=== PATIENT | female | born 1990 | race Caucasian/White ===

== ENCOUNTER → 2016-12-02 | Outpatient (CLI) | payer MEDICAID ==
[2016-12-02 15:23] LABS: CHLORIDE,CL 108 mmol/L (98-110); SODIUM,NA 141 mmol/L (136-146)
== END ==
LOC: MW.CHOBGYN 14:36
PROVIDERS: ATTEND Nurse Practitioner Women's Health
DX: R61 Generalized hyperhidrosis (principal); M79.1 Myalgia
CPT/HCPCS: 36415; 80053; 82670; 84443; 84703; 85025; 85652; 86038; 86140; 86430; 86618

== ENCOUNTER 2017-10-20 19:36 | Inpatient (IN) | payer MEDICAID ==
[2017-10-20] MEDS ORDERED: Sodium Chloride 0.9% 2.5 ML Syringe FLUSH PRN (19:48)
[2017-10-20] MEDS ORDERED: Sodium Chloride 0.9% 10 ML Syringe FLUSH PRN (19:48)
[2017-10-20] MEDS ORDERED: Sodium Chloride 0.9% 500 ML IV SCH (20:00)
[2017-10-20] MEDS ORDERED: Lactated Ringers 1,000 ML IV ONE (20:33)
[2017-10-20] MEDS ORDERED: cefTRIAXone 2 GM in Premix Bag 1 BAG IV ONE (20:50)
[2017-10-20] MEDS ORDERED: Sodium Chloride 0.9% 1,000 ML IV ONE (20:51)
[2017-10-20] MEDS ORDERED: Levofloxacin/Dextrose 5%-Water 750 MG in Premix Bag 1 BAG IV ONE (20:52)
--- NOTE | 2017-10-20 20:57 | EDM.PDOC ---
ED HPI GENERAL MEDICAL PROBLEM - General Chief Complaint: General Stated Complaint: FLU SYMPTOMS Time Seen by Provider: 10/20/17 19:42 Source of Information: Reports: Patient History Limitations: Reports: No Limitations - History of Present Illness INITIAL COMMENTS - FREE TEXT/NARRATIVE: HISTORY AND PHYSICAL: [] 27-year-old female presenting with complaints of flulike symptoms she's been sick for the last week History of Present Illness: []Alert oriented female who is quite miserable. Complaining of vomiting today. Fever. Review of Systems: As per history of present illness and below otherwise all systems reviewed and negative. Past medical history: As per history of present illness and as reviewed below otherwise noncontributory. Surgical history: As per history of present illness and as reviewed below otherwise noncontributory. Social history: No reported history of drug or alcohol abuse. Family history: As per history of present illness and as reviewed below otherwise noncontributory. Physical exam: Alert and oriented female answering questions appropriately speaking in full sentences without any shortness of breath. Cooperative with examination. is at bedside. HEENT: Atraumatic, normocehpalic, pupils reactive, negative for conjunctival pallor or scleral icterus, mucous membranes moist, throat clear, neck supple, nontender, trachea midline. Lungs: Coarse on auscultation, breath sounds equal bilaterally, chest non tender. Heart: S1S2, regular, negative for clicks, rubs, or JVD. Abdomen: Soft, nondistended, nontender. Negative for masses or hepatossplenmegaly. Positive for right costovertebral tenderness. Pelvis: Stable nontender. Genitourinary: Deferred. Rectal: Deferred Extremities: Atraumatic, negative for cords or calf pain. Neurovascular unremarkable. Neuro: Awake, alert, oriented. Cranial nerves II through XII unremarkable. Cerebellum unremarkable. Motor and sensory unremarkable throughout. Exam nonfocal. Discussed results of the testing that was completed and suspected sepsis along with a pneumonia and UTI. Both and patient verbalized understanding of the discussed results. Discussed with Dr. Braun and he is in agreement with admission. Diagnostics: [Cc CMP amylase lipase lactic acid chest x-ray] Therapeutics: []1 L normal saline Vancomycin Rocephin : Levaquin Impression: [] #1 pneumonia #2 sepsis #3 UTI Plan: [Admit as inpatient ICU] Definitive disposition and diagnosis as appropriate pending reevaluation and review of above. Onset: Today, Sudden Duration: Day(s): (2) Location: Reports: Generalized Quality: Reports: Ache Severity: Moderate Improves with: Reports: None Worsens with: Reports: None General Pain Score (Numeric/FACES): 10 - Related Data Allergies Allergy/AdvReac Type Severity Reaction Status Date / Time No Known Allergies Allergy Verified 10/20/17 19:55 Home Meds: Home Meds Gabapentin [Neurontin] 800 mg PO TID 10/20/17 [History] FLUoxetine [PROzac] 10 mg PO DAILY 10/21/17 [History] Past Medical History - Past Health History Medical/Surgical History: Denies Medical/Surgical History HEENT History: Reports: None Cardiovascular History: Reports: None Respiratory History: Reports: None Gastrointestinal History: Reports: None Genitourinary History: Reports: None [employer] History: Reports: Musculoskeletal History: Reports: Fibromyalgia Neurological History: Reports: Headaches, Chronic Psychiatric History: Reports: Anxiety, Depression, OCD Endocrine/Metabolic History: Reports: Hyperthyroidism Hematologic History: Reports: None Immunologic History: Reports: None Oncologic (Cancer) History: Reports: None Dermatologic History: Reports: None - Infectious Disease History Infectious Disease History: Reports: Chicken Pox - Past Surgical History Head Surgeries/Procedures: Reports: None HEENT Surgical History: Reports: None GI Surgical History: Reports: None Female Surgical History: Reports: Section Social & Family History - Family History Family Medical History: Noncontributory - Tobacco Use Smoking Status *Q: Current Every Day Smoker Years of Tobacco use: 10 Packs/Tins Daily: 1 Used Tobacco, but Quit: No Second Hand Smoke Exposure: Yes - Alcohol Use Days Per Week of Alcohol Use: 3 Number of Drinks Per Day: 3 Total Drinks Per Week: 9 - Recreational Drug Use Recreational Drug Use: No Drug Use in Last 12 Months: No ED ROS GENERAL - Review of Systems Review Of Systems: ROS reveals no pertinent complaints other than HPI. ED EXAM, GENERAL - Physical Exam Exam: See Below (see dictation) Course - Vital Signs Last Recorded V/S: Last Vital Signs Temp 36.8 C 10/23/17 08:28 Pulse 124 H 10/23/17 08:28 Resp 19 10/23/17 08:28 BP 124/84 10/23/17 08:28 Pulse Ox 89 L 10/23/17 08:28 - Orders/Labs/Meds Orders: Medication Orders Acetaminophen (Tylenol) 650 mg PO Q4H PRN PRN Reason: Pain (Mild 1-3)/fever Hydrocodone Bitart/Acetaminophen ([employer] 325-5 Mg) 1 tab PO Q4H PRN PRN Reason: Pain (moderate 4-6) Last Admin: 10/23/17 09:42 Dose: 1 tab Admin: 10/22/17 08:48 Dose: 1 tab Admin: 10/22/17 03:40 Dose: 1 tab Admin: 10/21/17 21:27 Dose: 1 tab Admin: 10/21/17 17:05 Dose: 1 tab Admin: 10/21/17 12:08 Dose: 1 tab Admin: 10/21/17 06:24 Dose: 1 tab Admin: 10/20/17 23:38 Dose: 1 tab Albuterol/Ipratropium (Duoneb 3.0-0.5 Mg/3 Ml) 3 ml NEB Q4HRRT PRN PRN Reason: Wheezing Last Admin: 10/21/17 11:36 Dose: 3 ml Diphenhydramine HCl (Benadryl) 25 mg IVPUSH Q8H PRN PRN Reason: Itching Docusate Sodium (Colace) 200 mg PO BID PRN PRN Reason: Constipation Enoxaparin Sodium (Lovenox) 40 mg SUBCUT Q24H [facility] Last Admin: 10/22/17 21:37 Dose: 40 mg Admin: 10/21/17 21:26 Dose: 40 mg Admin: 10/20/17 23:57 Dose: 40 mg Gabapentin (Neurontin) 800 mg PO TID [facility] Last Admin: 10/23/17 05:50 Dose: 800 mg Admin: 10/22/17 21:38 Dose: 800 mg Admin: 10/22/17 15:18 Dose: 800 mg Admin: 10/22/17 09:40 Dose: 800 mg Guaifenesin/Dextromethorphan (Robitussin Dm) 10 ml PO Q4H PRN PRN Reason: Cough Last Admin: 10/23/17 09:56 Dose: 10 ml Sodium Chloride (Normal Saline) 500 mls @ 999 mls/hr IV STAT [facility] Last Admin: 10/20/17 20:12 Dose: 999 mls/hr Levofloxacin/Dextrose 750 mg/ (Premix) 150 mls @ 100 mls/hr IV Q24H [facility] Last Admin: 10/23/17 02:27 Dose: 100 mls/hr Infusion: 10/22/17 02:51 Dose: 100 mls/hr Admin: 10/22/17 01:21 Dose: 100 mls/hr Infusion: 10/21/17 02:57 Dose: 100 mls/hr Admin: 10/21/17 01:27 Dose: 100 mls/hr Lorazepam (Ativan) 1 mg PO Q4H PRN PRN Reason: Anxiety Metronidazole (Metronidazole) 500 mg PO Q12HR [facility] Last Admin: 10/23/17 09:41 Dose: 500 mg Admin: 10/22/17 21:38 Dose: 500 mg Admin: 10/22/17 11:34 Dose: 500 mg Morphine Sulfate (Morphine) 2 mg IVPUSH Q2H PRN PRN Reason: Pain (severe 7-10) Nicotine (Habitrol) 7 mg TRDERM DAILY [facility] Last Admin: 10/23/17 09:40 Dose: 7 mg Admin: 10/22/17 08:48 Dose: 7 mg Admin: 10/21/17 08:22 Dose: 7 mg Admin: 10/20/17 23:42 Dose: 7 mg Ondansetron HCl (Zofran Odt) 4 mg PO Q4H PRN PRN Reason: nausea, able to take PO Ondansetron HCl (Zofran) 4 mg IVPUSH Q4H PRN PRN Reason: Nausea Sodium Chloride (Saline Flush) 10 ml FLUSH ASDIRECTED PRN PRN Reason: Keep Vein Open Sodium Chloride (Saline Flush) 2.5 ml FLUSH ASDIRECTED PRN PRN Reason: Keep Vein Open Labs: Laboratory Tests 10/20/17 10/20/17 10/20/17 Range/Units 19:58 19:58 19:58 WBC 25.62 H (4.0-11.0) K/uL RBC 4.45 (4.30-5.90) M/uL Hgb 13.8 (12.0-16.0) g/dL Hct 39.2 (36.0-46.0) % MCV 88.1 (80.0-98.0) fL MCH 31.0 (27.0-32.0) pg MCHC 35.2 (31.0-37.0) g/dL RDW Std Deviation 40.0 (28.0-62.0) fl RDW Coeff of Alex 13 (11.0-15.0) % Plt Count 197 (150-400) K/uL MPV 9.80 (7.40-12.00) fL Add Manual Diff YES Neutrophils % (Manual) 64 (48.0-80.0) % Band Neutrophils % 29 % Lymphocytes % (Manual) 5 L (16.0-40.0) % Monocytes % (Manual) 2 (0.0-15.0) % Nucleated RBC % 0.0 /100WBC Absolute Seg Neuts 16.4 H (1.4-5.7) Band Neutrophils # 7.4 Lymphocytes # (Manual) 1.3 (0.6-2.4) Monocytes # (Manual) 0.5 (0.0-0.8) Nucleated RBCs # 0 K/uL Lactate 1.6 (0.20-2.00) mmol/L Sodium 131 L (136-145) mmol/L Potassium 4.1 (3.5-5.1) mmol/L Chloride 97 L (98-107) mmol/L Carbon Dioxide 24.7 (21.0-32.0) mmol/L BUN 21 H (7.0-18.0) mg/dL Creatinine 1.2 H (0.6-1.0) mg/dL Est Cr Clr Drug Dosing 61.92 mL/min Estimated GFR (MDRD) 53.1 ml/min Glucose 94 (74-106) mg/dL Calcium 8.7 (8.5-10.1) mg/dL Total Bilirubin 0.4 (0.2-1.0) mg/dL AST 20 (15-37) IU/L ALT 20 (14-63) IU/L Alkaline Phosphatase 79 (46-116) U/L Total Protein 6.8 (6.4-8.2) g/dL Albumin 3.0 L (3.4-5.0) g/dL Globulin 3.8 H (2.0-3.5) g/dL Albumin/Globulin Ratio 0.8 L (1.3-2.8) Urine Color Urine Appearance Urine pH (5.0-8.0) Ur Specific [place] (1.001-1.035) Urine Protein (NEGATIVE) mg/dL Urine Glucose (UA) (NEGATIVE) mg/dL Urine Ketones (NEGATIVE) mg/dL Urine Occult Blood (NEGATIVE) Urine Nitrite (NEGATIVE) Urine Bilirubin (NEGATIVE) Urine Urobilinogen (<2.0) EU/dL Ur Leukocyte Esterase (NEGATIVE) Urine HCG, Qual (NEGATIVE) Urine Opiates Screen (NEGATIVE) Ur Oxycodone Screen (NEGATIVE) Urine Methadone Screen (NEGATIVE) Ur Barbiturates Screen (NEGATIVE) Ur Phencyclidine Scrn (NEGATIVE) Ur Amphetamine Screen (NEGATIVE) U Methamphetamines Scrn (NEGATIVE) U Benzodiazepines Scrn (NEGATIVE) U Cocaine Metab Screen (NEGATIVE) U Marijuana (THC) Screen (NEGATIVE) 10/20/17 10/20/17 10/20/17 Range/Units 20:15 20:15 20:15 WBC (4.0-11.0) K/uL RBC (4.30-5.90) M/uL Hgb (12.0-16.0) g/dL Hct (36.0-46.0) % MCV (80.0-98.0) fL MCH (27.0-32.0) pg MCHC (31.0-37.0) g/dL RDW Std Deviation (28.0-62.0) fl RDW Coeff of Alex (11.0-15.0) % Plt Count (150-400) K/uL MPV (7.40-12.00) fL Add Manual Diff Neutrophils % (Manual) (48.0-80.0) % Band Neutrophils % % Lymphocytes % (Manual) (16.0-40.0) % Monocytes % (Manual) (0.0-15.0) % Nucleated RBC % /100WBC Absolute Seg Neuts (1.4-5.7) Band Neutrophils # Lymphocytes # (Manual) (0.6-2.4) Monocytes # (Manual) (0.0-0.8) Nucleated RBCs # K/uL Lactate (0.20-2.00) mmol/L Sodium (136-145) mmol/L Potassium (3.5-5.1) mmol/L Chloride (98-107) mmol/L Carbon Dioxide (21.0-32.0) mmol/L BUN (7.0-18.0) mg/dL Creatinine (0.6-1.0) mg/dL Est Cr Clr Drug Dosing mL/min Estimated GFR (MDRD) ml/min Glucose (74-106) mg/dL Calcium (8.5-10.1) mg/dL Total Bilirubin (0.2-1.0) mg/dL AST (15-37) IU/L ALT (14-63) IU/L Alkaline Phosphatase (46-116) U/L Total Protein (6.4-8.2) g/dL Albumin (3.4-5.0) g/dL Globulin (2.0-3.5) g/dL Albumin/Globulin Ratio (1.3-2.8) Urine Color YELLOW Urine Appearance CLEAR Urine pH 6.0 (5.0-8.0) Ur Specific [place] 1.015 (1.001-1.035) Urine Protein 100 (NEGATIVE) mg/dL Urine Glucose (UA) NEGATIVE (NEGATIVE) mg/dL Urine Ketones NEGATIVE (NEGATIVE) mg/dL Urine Occult Blood MODERATE (NEGATIVE) Urine Nitrite NEGATIVE (NEGATIVE) Urine Bilirubin NEGATIVE (NEGATIVE) Urine Urobilinogen 4.0 H (<2.0) EU/dL Ur Leukocyte Esterase NEGATIVE (NEGATIVE) Urine HCG, Qual NEGATIVE (NEGATIVE) Urine Opiates Screen NEGATIVE (NEGATIVE) Ur Oxycodone Screen NEGATIVE (NEGATIVE) Urine Methadone Screen NEGATIVE (NEGATIVE) Ur Barbiturates Screen NEGATIVE (NEGATIVE) Ur Phencyclidine Scrn NEGATIVE (NEGATIVE) Ur Amphetamine Screen POSITIVE (NEGATIVE) U Methamphetamines Scrn POSITIVE (NEGATIVE) U Benzodiazepines Scrn NEGATIVE (NEGATIVE) U Cocaine Metab Screen NEGATIVE (NEGATIVE) U Marijuana (THC) Screen NEGATIVE (NEGATIVE) Meds: Medications Generic Name Dose Route Start Last Admin Trade Name Freq PRN Reason Stop Dose Admin Acetaminophen 650 mg 10/20/17 22:11 Tylenol PO Q4H PRN Pain (Mild 1-3)/fever Hydrocodone Bitart/Acetaminophen 1 tab 10/20/17 22:11 10/23/17 09:42 [employer] 325-5 Mg PO 1 tab Q4H PRN Administration Pain (moderate 4-6) Albuterol/Ipratropium 3 ml 10/21/17 11:24 10/21/17 11:36 Duoneb 3.0-0.5 Mg/3 Ml NEB 3 ml Q4HRRT PRN Administration Wheezing Diphenhydramine HCl 25 mg 10/22/17 06:49 Benadryl IVPUSH Q8H PRN Itching Docusate Sodium 200 mg 10/21/17 18:17 Colace PO BID PRN Constipation Enoxaparin Sodium 40 mg 10/20/17 22:00 10/22/17 21:37 Lovenox SUBCUT 40 mg Q24H [facility] Administration Gabapentin 800 mg 10/22/17 09:30 10/23/17 05:50 Neurontin PO 800 mg TID [facility] Administration Guaifenesin/Dextromethorphan 10 ml 10/23/17 09:20 10/23/17 09:56 Robitussin Dm PO 10 ml Q4H PRN Administration Cough Sodium Chloride 500 mls @ 999 mls/hr 10/20/17 20:00 10/20/17 20:12 Normal Saline IV 999 mls/hr STAT [facility] Administration Levofloxacin/Dextrose 750 mg/ 150 mls @ 100 mls/hr 10/21/17 02:00 10/23/17 02 :27 Premix IV 100 mls/hr Q24H [facility] Administration Lorazepam 1 mg 10/22/17 09:30 Ativan PO Q4H PRN Anxiety Metronidazole 500 mg 10/22/17 11:15 10/23/17 09:41 Metronidazole PO 500 mg Q12HR [facility] Administration Morphine Sulfate 2 mg 10/22/17 15:17 Morphine IVPUSH Q2H PRN Pain (severe 7-10) Nicotine 7 mg 10/20/17 23:00 10/23/17 09:40 Habitrol TRDERM 7 mg DAILY [facility] Administration Ondansetron HCl 4 mg 10/20/17 22:11 Zofran Odt PO Q4H PRN nausea, able to take PO Ondansetron HCl 4 mg 10/20/17 22:11 Zofran IVPUSH Q4H PRN Nausea Sodium Chloride 10 ml 10/20/17 19:48 Saline Flush FLUSH ASDIRECTED PRN Keep Vein Open Sodium Chloride 2.5 ml 10/20/17 19:48 Saline Flush FLUSH ASDIRECTED PRN Keep Vein Open Discontinued Medications Generic Name Dose Route Start Last Admin Trade Name Freq PRN Reason Stop Dose Admin Lactated Ringer's 1,000 mls @ 999 mls/hr 10/20/17 20:33 10/20/17 21:10 Ringers, Lactated IV 10/20/17 21:33 999 mls/hr .BOLUS ONE Administration Ceftriaxone Sodium/Dextrose 2 50 mls @ 100 mls/hr 10/20/17 20:50 10/20/17 21: 14 gm/ Premix IV 10/20/17 21:19 100 mls/hr ONETIME ONE Administration Sodium Chloride 1,000 mls @ 999 mls/hr 10/20/17 20:51 10/20/17 22:15 Normal Saline IV 10/20/17 21:51 999 mls/hr STAT ONE Administration Vancomycin HCl 1 gm/ Sodium 250 mls @ 250 mls/hr 10/20/17 20:50 10/20/17 21: 16 Chloride IV 10/20/17 21:49 250 mls/hr ONETIME ONE Administration Levofloxacin/Dextrose 750 mg/ 150 mls @ 100 mls/hr 10/20/17 20:52 10/20/17 23 :56 Premix IV 10/20/17 22:21 Not Given ONETIME ONE Lactated Ringer's 1,000 mls @ 175 mls/hr 10/20/17 22:15 10/22/17 08:55 Ringers, Lactated IV 175 mls/hr ASDIRECTED [facility] Administration Piperacillin Sod/Tazobactam 100 mls @ 100 mls/hr 10/20/17 22:00 10/22/17 03: 00 Sod 4.5 gm/ Sodium Chloride IV 100 mls/hr Q6H [facility] Administration Albumin Human 250 mls @ 125 mls/hr 10/20/17 23:00 10/21/17 01:00 Buminate 5% IV 10/21/17 00:59 125 mls/hr Q2H [facility] Administration Vancomycin HCl 0.75 gm/ Sodium 250 mls @ 250 mls/hr 10/20/17 23:00 10/20/17 23:45 Chloride IV 10/20/17 23:59 250 mls/hr ONETIME ONE Administration Vancomycin HCl 0.75 gm/ Sodium 250 mls @ 166.667 mls/hr 10/21/17 04:00 04:46 Chloride IV 166.667 mls/hr Q8H [facility] Administration Sodium Chloride 1,000 mls @ 1,000 mls/hr 10/21/17 02:46 10/21/17 03:04 Normal Saline IV 10/21/17 03:45 1,000 mls/hr .Bolus ONE Administration Sodium Chloride 1,000 mls @ 1,000 mls/hr 10/21/17 04:47 10/21/17 05:13 Normal Saline IV 10/21/17 05:46 1,000 mls/hr .Bolus ONE Administration Magnesium Sulfate 2 gm/ Premix 50 mls @ 50 mls/hr 10/21/17 06:58 10/21/17 08: 22 IV 10/21/17 07:57 50 mls/hr ONETIME ONE Administration Vancomycin HCl 1 gm/ Sodium 250 mls @ 250 mls/hr 10/21/17 12:00 10/22/17 03: 58 Chloride IV 250 mls/hr Q8H [facility] Administration Magnesium Sulfate 4 gm/ Premix 100 mls @ 50 mls/hr 10/21/17 09:05 10/21/17 09 :14 IV 10/21/17 11:04 Not Given ONETIME ONE Lorazepam 1 mg 10/20/17 22:11 Ativan IVPUSH Q4H PRN Anxiety Morphine Sulfate 2 mg 10/20/17 22:11 Morphine IVPUSH 10/21/17 22:13 Q2H PRN Pain (severe 7-10) Morphine Sulfate 2 mg 10/21/17 07:12 Morphine IVPUSH Q2H PRN Pain (severe 7-10) Polyethylene Glycol 17 gm 10/21/17 17:57 10/21/17 18:00 Miralax PO 10/21/17 17:58 Not Given ONETIME ONE Polyethylene Glycol 17 gm 10/21/17 18:00 10/22/17 08:58 Miralax PO Not Given DAILY [facility] Potassium Chloride 40 meq 10/21/17 06:57 10/21/17 08:22 Potassium Chloride PO 10/21/17 06:58 40 meq ONETIME ONE Administration Potassium Chloride 40 meq 10/21/17 09:06 10/21/17 09:14 Potassium Chloride PO 10/21/17 09:07 Not Given ONETIME ONE Sodium Phosphate 250 mg 10/21/17 12:00 10/22/17 06:33 Neutra-Phos PO 10/22/17 06:01 250 mg QID [facility] Administration Vancomycin HCl 1 dose 10/20/17 22:15 Pharmacy To Dose - Vancomycin .XX ASDIRECTED [facility] Departure - Departure Time of Disposition: 22:15 Disposition: Admitted As Inpatient 64 Condition: Good Clinical Impression: Pneumonia Qualifiers: Pneumonia type: due to unspecified organism Laterality: right Lung location: lower lobe of lung Qualified Code(s): J18.1 - Lobar pneumonia, unspecified organism Sepsis Qualifiers: Sepsis type: sepsis due to unspecified organism Qualified Code(s): A41.9 - Sepsis, unspecified organism - Discharge Information
--- NOTE | 2017-10-20 21:16 | PCM.HP ---
H&P History of Present Illness - General Date of Service: 10/20/17 Admit Problem/Dx: Sepsis secondary to pna Source of Information: Patient History Limitations: Reports: No Limitations - History of Present Illness Initial Comments - Free Text/Narative: 27-year-old female presenting to emergency department with chief complaint of generalized body aches starting at 6 AM yesterday with past medical history of fibromyalgia, depression, anxiety. Patient states that around 6 AM yesterday she began to have some generalized body aches as well as nausea and vomiting. At midnight she felt worse with increased nausea and vomiting. She did get her daughter up for school the next day but noticed she had fever of 103. She has had associated dry cough, headache , chest pain, back, and stomach pain. Patient states that she is a current smoker but only smokes 1-2 cigarettes per day. She has a [id number] history. She has no allergies. She has a history of fibromyalgia and takes gabapentin for this. She also has a history of depression and anxiety but is not taking her prescribed Zyprexa or Prozac. Patient does admit to using methamphetamine recently. States that it was a "cureall" and thought that it would make her feel better. Patient does see Maryann Ceja for her primary care. Emergency department: Leukocytosis 25.62 today, hyponatremia 131, elevated creatinine 1.2, urinalysis unremarkable, chest x-ray positive for right lower lobe infiltrate, lactate normal, positive for amphetamine and methamphetamine. Blood cultures were obtained and patient was started on Rocephin 2 g, Levaquin, and Zosyn. She was also given 1 L LR. Patient was hypotensive 98/52 and tachycardic at 114. Patient admitted for sepsis secondary to suspected pneumonia. General Pain Score (Numeric/FACES): 10 - Related Data Allergies/Adverse Reactions: Allergies Allergy/AdvReac Type Severity Reaction Status Date / Time No Known Allergies Allergy Verified 10/20/17 19:55 Home Medications: Home Meds Aspirin 0 mg PO DAILY 10/20/17 [History] Gabapentin [Neurontin] 800 mg PO TID 10/20/17 [History] Past Medical History - Past Health History Medical/Surgical History: Denies Medical/Surgical History HEENT History: Reports: None Cardiovascular History: Reports: None Respiratory History: Reports: None Gastrointestinal History: Reports: None Genitourinary History: Reports: None 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: Musculoskeletal History: Reports: Fibromyalgia Neurological History: Reports: Headaches, Chronic Psychiatric History: Reports: Anxiety, Depression, OCD Endocrine/Metabolic History: Reports: Hyperthyroidism Hematologic History: Reports: None Immunologic History: Reports: None Oncologic (Cancer) History: Reports: None Dermatologic History: Reports: None - Infectious Disease History Infectious Disease History: Reports: Chicken Pox - Past Surgical History Head Surgeries/Procedures: Reports: None HEENT Surgical History: Reports: None GI Surgical History: Reports: None Female Surgical History: Reports: Section Social & Family History - Family History Family Medical History: Noncontributory - Tobacco Use Smoking Status *Q: Current Every Day Smoker Years of Tobacco use: 10 Packs/Tins Daily: 1 Used Tobacco, but Quit: No Second Hand Smoke Exposure: Yes - Alcohol Use Days Per Week of Alcohol Use: 3 Number of Drinks Per Day: 3 Total Drinks Per Week: 9 - Recreational Drug Use Recreational Drug Use: No Drug Use in Last 12 Months: No H&P Review of Systems - Review of Systems: Review Of Systems: See Below General: Reports: Fever, Chills, Weakness, Fatigue, Decreased Appetite HEENT: Reports: Headaches. Denies: Dysphasia, Sore Throat Pulmonary: Reports: Shortness of Breath, Pleuritic Chest Pain, Cough. Denies: Sputum, Hemoptysis Cardiovascular: Reports: Chest Pain. Denies: Palpitations, Edema Gastrointestinal: Reports: Abdominal Pain, Nausea, Vomiting. Denies: Black Stool, Bloody Stool, Constipation, Diarrhea Genitourinary: Denies: Dysuria, Hematuria, Flank Pain Musculoskeletal: Denies: Neck Pain, Leg Pain Skin: Denies: Cyanosis Psychiatric: Reports: Depression, Anxiety. Denies: Confusion Neurological: Reports: Headache. Denies: Confusion, Dizziness Hematologic/Lymphatic: Denies: Anemia Immunologic: Denies: Anaphylaxis Exam - Exam Exam: See Below - Vital Signs Vital Signs: Last Vital Signs Temp 100.8 F H 10/20/17 19:36 Pulse 127 H 10/20/17 19:36 Resp 20 10/20/17 19:36 BP 106/56 L 10/20/17 19:36 Pulse Ox 97 10/20/17 19:36 Weight: 56.699 kg - Exam Quality Assessment: DVT Prophylaxis General: Alert, Oriented, Cooperative, Mild Distress HEENT: Conjunctiva Clear, EACs Clear, EOMI, Hearing Intact, Mucosa Moist & [place] , Nares Patent, Normal Nasal Septum, Posterior Pharynx Clear, PERRLA Neck: Supple, Trachea Midline, 2 Lungs: Normal Respiratory Effort, Decreased Breath Sounds, Rales Cardiovascular: Regular Rhythm, Normal S1, Normal S2, Tachycardia GI/Abdominal Exam: Normal Bowel Sounds, Soft, No Organomegaly, No Distention, Tender. No: Guarding, Rigid, Rebound (Female) Exam: Deferred Rectal (Female) Exam: Deferred Back Exam: Normal Inspection Extremities: Normal Inspection, Non-Tender, No Pedal Edema, Normal Capillary Refill Peripheral Pulses: 2+: Radial (L), Radial (R), Posterior Tibial (L), Posterior Tibial (R), Dorsalis Pedis (L), Dorsalis Pedis (R) Skin: Warm, Dry, Intact Neurological: Cranial Nerves Intact Neuro Extensive - Mental Status: Alert, Oriented x3, Normal Mood/Affect, Normal Cognition Neuro Extensive - Motor, Sensory, Reflexes: CN II-XII Intact Psychiatric: Alert, Normal Affect, Normal Mood - Patient Data Lab Results Last 24 hrs: Laboratory Results - last 24 hr 10/20/17 10/20/17 10/20/17 Range/Units 19:58 19:58 19:58 WBC 25.62 H (4.0-11.0) K/uL RBC 4.45 (4.30-5.90) M/uL Hgb 13.8 (12.0-16.0) g/dL Hct 39.2 (36.0-46.0) % MCV 88.1 (80.0-98.0) fL MCH 31.0 (27.0-32.0) pg MCHC 35.2 (31.0-37.0) g/dL RDW Std Deviation 40.0 (28.0-62.0) fl RDW Coeff of Alex 13 (11.0-15.0) % Plt Count 197 (150-400) K/uL MPV 9.80 (7.40-12.00) fL Add Manual Diff YES Neutrophils % (Manual) 64 (48.0-80.0) % Band Neutrophils % 29 % Lymphocytes % (Manual) 5 L (16.0-40.0) % Monocytes % (Manual) 2 (0.0-15.0) % Nucleated RBC % 0.0 /100WBC Absolute Seg Neuts 16.4 H (1.4-5.7) Band Neutrophils # 7.4 Lymphocytes # (Manual) 1.3 (0.6-2.4) Monocytes # (Manual) 0.5 (0.0-0.8) Nucleated RBCs # 0 K/uL Lactate 1.6 (0.20-2.00) mmol/L Sodium 131 L (136-145) mmol/L Potassium 4.1 (3.5-5.1) mmol/L Chloride 97 L (98-107) mmol/L Carbon Dioxide 24.7 (21.0-32.0) mmol/L BUN 21 H (7.0-18.0) mg/dL Creatinine 1.2 H (0.6-1.0) mg/dL Est Cr Clr Drug Dosing 61.92 mL/min Estimated GFR (MDRD) 53.1 ml/min Glucose 94 (74-106) mg/dL Calcium 8.7 (8.5-10.1) mg/dL Total Bilirubin 0.4 (0.2-1.0) mg/dL AST 20 (15-37) IU/L ALT 20 (14-63) IU/L Alkaline Phosphatase 79 (46-116) U/L Total Protein 6.8 (6.4-8.2) g/dL Albumin 3.0 L (3.4-5.0) g/dL Globulin 3.8 H (2.0-3.5) g/dL Albumin/Globulin Ratio 0.8 L (1.3-2.8) Urine Color Urine Appearance Urine pH (5.0-8.0) Ur Specific [place] (1.001-1.035) Urine Protein (NEGATIVE) mg/dL Urine Glucose (UA) (NEGATIVE) mg/dL Urine Ketones (NEGATIVE) mg/dL Urine Occult Blood (NEGATIVE) Urine Nitrite (NEGATIVE) Urine Bilirubin (NEGATIVE) Urine Urobilinogen (<2.0) EU/dL Ur Leukocyte Esterase (NEGATIVE) Urine HCG, Qual (NEGATIVE) Urine Opiates Screen (NEGATIVE) Ur Oxycodone Screen (NEGATIVE) Urine Methadone Screen (NEGATIVE) Ur Barbiturates Screen (NEGATIVE) Ur Phencyclidine Scrn (NEGATIVE) Ur Amphetamine Screen (NEGATIVE) U Methamphetamines Scrn (NEGATIVE) U Benzodiazepines Scrn (NEGATIVE) U Cocaine Metab Screen (NEGATIVE) U Marijuana (THC) Screen (NEGATIVE) 10/20/17 10/20/17 10/20/17 Range/Units 20:15 20:15 20:15 WBC (4.0-11.0) K/uL RBC (4.30-5.90) M/uL Hgb (12.0-16.0) g/dL Hct (36.0-46.0) % MCV (80.0-98.0) fL MCH (27.0-32.0) pg MCHC (31.0-37.0) g/dL RDW Std Deviation (28.0-62.0) fl RDW Coeff of Alex (11.0-15.0) % Plt Count (150-400) K/uL MPV (7.40-12.00) fL Add Manual Diff Neutrophils % (Manual) (48.0-80.0) % Band Neutrophils % % Lymphocytes % (Manual) (16.0-40.0) % Monocytes % (Manual) (0.0-15.0) % Nucleated RBC % /100WBC Absolute Seg Neuts (1.4-5.7) Band Neutrophils # Lymphocytes # (Manual) (0.6-2.4) Monocytes # (Manual) (0.0-0.8) Nucleated RBCs # K/uL Lactate (0.20-2.00) mmol/L Sodium (136-145) mmol/L Potassium (3.5-5.1) mmol/L Chloride (98-107) mmol/L Carbon Dioxide (21.0-32.0) mmol/L BUN (7.0-18.0) mg/dL Creatinine (0.6-1.0) mg/dL Est Cr Clr Drug Dosing mL/min Estimated GFR (MDRD) ml/min Glucose (74-106) mg/dL Calcium (8.5-10.1) mg/dL Total Bilirubin (0.2-1.0) mg/dL AST (15-37) IU/L ALT (14-63) IU/L Alkaline Phosphatase (46-116) U/L Total Protein (6.4-8.2) g/dL Albumin (3.4-5.0) g/dL Globulin (2.0-3.5) g/dL Albumin/Globulin Ratio (1.3-2.8) Urine Color YELLOW Urine Appearance CLEAR Urine pH 6.0 (5.0-8.0) Ur Specific [place] 1.015 (1.001-1.035) Urine Protein 100 (NEGATIVE) mg/dL Urine Glucose (UA) NEGATIVE (NEGATIVE) mg/dL Urine Ketones NEGATIVE (NEGATIVE) mg/dL Urine Occult Blood MODERATE (NEGATIVE) Urine Nitrite NEGATIVE (NEGATIVE) Urine Bilirubin NEGATIVE (NEGATIVE) Urine Urobilinogen 4.0 H (<2.0) EU/dL Ur Leukocyte Esterase NEGATIVE (NEGATIVE) Urine HCG, Qual NEGATIVE (NEGATIVE) Urine Opiates Screen NEGATIVE (NEGATIVE) Ur Oxycodone Screen NEGATIVE (NEGATIVE) Urine Methadone Screen NEGATIVE (NEGATIVE) Ur Barbiturates Screen NEGATIVE (NEGATIVE) Ur Phencyclidine Scrn NEGATIVE (NEGATIVE) Ur Amphetamine Screen POSITIVE (NEGATIVE) U Methamphetamines Scrn POSITIVE (NEGATIVE) U Benzodiazepines Scrn NEGATIVE (NEGATIVE) U Cocaine Metab Screen NEGATIVE (NEGATIVE) U Marijuana (THC) Screen NEGATIVE (NEGATIVE) Result Diagrams: 10/20/17 19:58 10/20/17 19:58 *Q Meaningful Use (ADM) - VTE *Q VTE Criteria *Q: - Stroke *Q Stroke Criteria *Q: - AMI *Q AMI Criteria *Q: - Problem List (1) Sepsis due to Gram negative bacteria SNOMED Code(s): 608983495 ICD Code: A41.50 - GRAM-NEGATIVE SEPSIS, UNSPECIFIED Status: Acute Priority: High Current Visit: Yes (2) Pneumonia SNOMED Code(s): 805165997 ICD Code: J18.9 - PNEUMONIA, UNSPECIFIED ORGANISM Status: Acute Priority : High Current Visit: Yes Qualifiers: Pneumonia type: due to unspecified organism Laterality: right Lung location: lower lobe of lung Qualified Code(s): J18.1 - Lobar pneumonia, unspecified organism (3) Methamphetamine abuse SNOMED Code(s): 100843641 ICD Code: F15.10 - OTHER STIMULANT ABUSE, UNCOMPLICATED Status: Acute Priority: Medium Current Visit: Yes (4) Fibromyalgia SNOMED Code(s): 098734759 ICD Code: M79.7 - FIBROMYALGIA Status: Chronic Priority: Medium Current Visit: Yes (5) Depression with anxiety SNOMED Code(s): 848204079 ICD Code: F41.8 - OTHER SPECIFIED ANXIETY DISORDERS Status: Chronic Priority: Medium Current Visit: Yes Problem List Initiated/Reviewed/Updated: Yes Orders Last 24hrs: Active Orders 24 hr Category Date Time Status Chest 2V [CR] Stat Exams 10/20/17 20:34 Taken CULTURE BLOOD [BC] Stat Lab 10/20/17 19:58 Received CULTURE BLOOD [BC] Stat Lab 10/20/17 20:08 Received CULTURE URINE [RM] Stat Lab 10/20/17 20:15 Received Lactated Ringers [Ringers, Lactated] 1,000 ml Med 10/20/17 20:33 Active IV .BOLUS Levofloxacin/Dextrose 5%-Water [Levaquin in D5W 750 MG/ Med 10/20/17 20:52 Active 150 ML] 750 mg Premix Bag 1 bag IV ONETIME Sodium Chloride 0.9% [Normal Saline] 1,000 ml Med 10/20/17 20:51 Active IV STAT Sodium Chloride 0.9% [Normal Saline] 500 ml Med 10/20/17 20:00 Active IV STAT Sodium Chloride 0.9% [Saline Flush] Med 10/20/17 19:48 Active 10 ml FLUSH ASDIRECTED PRN Sodium Chloride 0.9% [Saline Flush] Med 10/20/17 19:48 Active 2.5 ml FLUSH ASDIRECTED PRN Vancomycin [Vancocin] 1 gm Med 10/20/17 20:50 Active Sodium Chloride 0.9% [Normal Saline] 250 ml IV ONETIME cefTRIAXone [Rocephin in Dextrose,Iso-Osm 2 GM/50 ML] 2 Med 10/20/17 20:50 Active gm Premix Bag 1 bag IV ONETIME Blood Culture x2 Reflex Set [OM.PC] Stat Oth 10/20/17 19:48 Ordered Saline Lock Insert [OM.PC] Stat Oth 10/20/17 19:48 Ordered Medication Orders Sodium Chloride (Normal Saline) 500 mls @ 999 mls/hr IV STAT [facility] Last Admin: 10/20/17 20:12 Dose: 999 mls/hr Lactated Ringer's (Ringers, Lactated) 1,000 mls @ 999 mls/hr IV .BOLUS ONE Stop: 10/20/17 21:33 Last Admin: 10/20/17 21:10 Dose: 999 mls/hr Ceftriaxone Sodium/Dextrose 2 (gm/ Premix) 50 mls @ 100 mls/hr IV ONETIME ONE Stop: 10/20/17 21:19 Last Admin: 10/20/17 21:14 Dose: 100 mls/hr Sodium Chloride (Normal Saline) 1,000 mls @ 999 mls/hr IV STAT ONE Stop: 10/20/17 21:51 Vancomycin HCl 1 gm/ Sodium (Chloride) 250 mls @ 250 mls/hr IV ONETIME ONE Stop: 10/20/17 21:49 Last Admin: 10/20/17 21:16 Dose: 250 mls/hr Levofloxacin/Dextrose 750 mg/ (Premix) 150 mls @ 100 mls/hr IV ONETIME ONE Stop: 10/20/17 22:21 Sodium Chloride (Saline Flush) 10 ml FLUSH ASDIRECTED PRN PRN Reason: Keep Vein Open Sodium Chloride (Saline Flush) 2.5 ml FLUSH ASDIRECTED PRN PRN Reason: Keep Vein Open Assessment/Plan Comment:: 27-year-old female admitted 10/20/17 for sepsis secondary to pneumonia found to be methamphetamine positive with past medical history of fibromyalgia, anxiety, depression Sepsis/pneumonia: Most likely secondary to pneumonia. We'll treat with Zosyn, Levaquin and vancomycin. Will narrow antibiotic coverage as patient improves and culture results are obtained. Did get sputum culture. Blood cultures obtained. IV fluid resuscitation for hypotension with boluses as needed. Normal lactate. Acute kidney injury: Most likely secondary to volume depletion. Continue to monitor with IV fluids. Methamphetamine abuse: I placed patient on Ativan as needed for anxiety we'll continue to monitor. VTE: Lovenox, SCD Dispo: 2-4 days pending.
[2017-10-20] MEDS ORDERED: Ondansetron 4 MG Tab.DIS PO PRN (22:11)
[2017-10-20] MEDS ORDERED: Acetaminophen 325 MG Tab PO PRN (22:11)
[2017-10-20] MEDS ORDERED: Morphine 10 MG/ML Syringe IVPUSH PRN (22:11)
[2017-10-20] MEDS ORDERED: Ondansetron 4 MG/2 ML SDV IVPUSH PRN (22:11)
[2017-10-20] MEDS ORDERED: LORazepam 2 MG/ML SDV IVPUSH PRN (22:11)
[2017-10-20] MEDS ORDERED: Albumin 5% 250 ML IV SCH (23:00)
[2017-10-20] MEDS: Lactated Ringers 1,000 ML IV SCH (23:36)
[2017-10-20] MEDS: Acetaminophen/HYDROcodone 325-5 MG Tab PO PRN (23:38)
[2017-10-20] MEDS: Nicotine 7 MG/24 Hr Patch TRDERM SCH (23:42)
[2017-10-20] MEDS: Piperacillin/Tazobactam 4.5 GM in Sodium Chloride 0.9% 100 ML IV SCH (23:53)
[2017-10-20] MEDS: Enoxaparin 40 MG/0.4 ML Syringe SUBCUT SCH (23:57)
[2017-10-21] MEDS: Levofloxacin/Dextrose 5%-Water 750 MG in Premix Bag 1 BAG IV SCH (01:27)
[2017-10-21] MEDS ORDERED: Sodium Chloride 0.9% 1,000 ML IV ONE ×2 (02:46→04:47)
[2017-10-21] MEDS: Piperacillin/Tazobactam 4.5 GM in Sodium Chloride 0.9% 100 ML IV SCH ×4 (04:33→21:27)
[2017-10-21 06:13] LABS: CHLORIDE,CL 108 mmol/L (98-107); SODIUM,NA 140 mmol/L (136-145)
[2017-10-21] MEDS: Acetaminophen/HYDROcodone 325-5 MG Tab PO PRN ×4 (06:24→21:27)
[2017-10-21] MEDS: Lactated Ringers 1,000 ML IV SCH ×3 (06:26→17:52)
[2017-10-21] MEDS ORDERED: Potassium Chloride 10% 20 MEQ/15 ML Soln 30 ML UD Cup PO ONE ×2 (06:57→09:06)
[2017-10-21] MEDS ORDERED: Magnesium Sulfate/Water 2 GM in Premix Bag 1 BAG IV ONE (06:58)
[2017-10-21] MEDS ORDERED: Morphine 2 MG/ML Syringe IVPUSH PRN (07:12)
[2017-10-21] MEDS: Nicotine 7 MG/24 Hr Patch TRDERM SCH (08:22)
[2017-10-21] MEDS ORDERED: Magnesium Sulfate/Water 4 GM in Premix Bag 1 BAG IV ONE (09:05)
--- NOTE | 2017-10-21 10:41 | CR ---
EXAM DATE: 10/20/17 PATIENT'S AGE: 27 Patient: BRIJESH SUN Facility: [place], [place] Site . Site : 1990 Study: XRay Chest [id number]/20/2018 9:00:32 PM Ordering Physician: Doctor Brody Final Report: HISTORY: Generalized body aches x2 days. FINDINGS: PA and lateral chest radiographs demonstrate a normal cardiac silhouette. Pulmonary vasculature is free of cephalization. There is a right lower lobe infiltrate present. No pleural effusion is seen. IMPRESSION: Right lower lobe infiltrate. Dictated by Aubree Aquino MD @ 10/20/2017 9:11:18 PM Dictated by: Aubree Aquino MD @ 10/20/2017 21:11:26 (Electronic Signature) Report Signed by Proxy. [email or web address]
[2017-10-21] MEDS: Phosphorus #1 250 MG Tab PO SCH ×3 (11:10→23:31)
[2017-10-21] MEDS ORDERED: Albuterol/Ipratropium 3.0-0.5 MG/3 ML Neb Soln NEB PRN (11:24)
--- NOTE | 2017-10-21 11:36 | PCM.PN ---
- General Info Date of Service: 10/21/17 Subjective Update: Patient has improved in terms of her respiratory status and overall vital since admission. She still having right-sided abdominal wall pain as radiating to the back, however she does not appear to be tachypneic, short of breath, having any signs or symptoms at this time the point towards a PE. Overall patient does state that she is feeling a whole lot better. - Review of Systems General: Reports: Weakness, Chills Cardiovascular: Reports: Chest Pain - Patient Data Vitals - Most Recent: Last Vital Signs Temp 36.2 C 10/21/17 08:00 Pulse 113 H 10/20/17 21:53 Resp 21 H 10/21/17 11:00 BP 96/59 L 10/21/17 11:00 Pulse Ox 100 10/21/17 11:00 Weight - Most Recent: 61.8 kg I&O - Last 24 Hours: Intake & Output 10/20/17 10/21/17 10/21/17 22:59 06:59 14:59 Intake Total 5474 1401 Output Total 1300 725 Balance 4172 676 Lab Results Last 24 Hours: Laboratory Results - last 24 hr 10/21/17 10/21/17 10/21/17 Range/Units 05:25 05:25 05:39 WBC 18.66 H (4.0-11.0) K/uL RBC 3.43 L (4.30-5.90) M/uL Hgb 10.4 L (12.0-16.0) g/dL Hct 30.7 L (36.0-46.0) % MCV 89.5 (80.0-98.0) fL MCH 30.3 (27.0-32.0) pg MCHC 33.9 (31.0-37.0) g/dL RDW Std Deviation 41.0 (28.0-62.0) fl RDW Coeff of Alex 13 (11.0-15.0) % Plt Count 160 (150-400) K/uL MPV 9.40 (7.40-12.00) fL Add Manual Diff YES Neutrophils % (Manual) 72 (48.0-80.0) % Band Neutrophils % 18 % Lymphocytes % (Manual) 5 L (16.0-40.0) % Monocytes % (Manual) 3 (0.0-15.0) % Eosinophils % (Manual) 2 (0.0-7.0) % Nucleated RBC % 0.0 /100WBC Absolute Seg Neuts 13.4 H (1.4-5.7) Band Neutrophils # 3.4 Lymphocytes # (Manual) 0.9 (0.6-2.4) Monocytes # (Manual) 0.6 (0.0-0.8) Eosinophils # (Manual) 0.4 (0.0-0.7) Nucleated RBCs # 0 K/uL Sodium 140 (136-145) mmol/L Potassium 3.4 L (3.5-5.1) mmol/L Chloride 108 H (98-107) mmol/L Carbon Dioxide 22.8 (21.0-32.0) mmol/L BUN 14 (7.0-18.0) mg/dL Creatinine 0.9 (0.6-1.0) mg/dL Est Cr Clr Drug Dosing 86.34 mL/min Estimated GFR (MDRD) > 60.0 ml/min Glucose 99 (74-106) mg/dL Calcium 7.2 L (8.5-10.1) mg/dL Phosphorus 1.9 L (2.6-4.7) mg/dL Magnesium 1.2 L (1.5-2.0) mg/dL Total Bilirubin 0.2 (0.2-1.0) mg/dL AST 19 (15-37) IU/L ALT 16 (14-63) IU/L Alkaline Phosphatase 53 (46-116) U/L Total Protein 4.5 L (6.4-8.2) g/dL Albumin 1.9 L (3.4-5.0) g/dL Globulin 2.6 (2.0-3.5) g/dL Albumin/Globulin Ratio 0.7 L (1.3-2.8) Denny Results Last 24 Hours: Microbiology 10/21/17 00:49 Influenza Type A Antigen Screen - Final Nasopharyngeal Swab NEGATIVE INFLUENZA A VIRUS AG Influenza Type B Antigen Screen - Final NEGATIVE INFLUENZA B VIRUS AG Med Orders - Current: Current Medications Acetaminophen (Tylenol) 650 mg PO Q4H PRN PRN Reason: Pain (Mild 1-3)/fever Hydrocodone Bitart/Acetaminophen ([place] 325-5 Mg) 1 tab PO Q4H PRN PRN Reason: Pain (moderate 4-6) Last Admin: 10/21/17 06:24 Dose: 1 tab Albuterol/Ipratropium (Duoneb 3.0-0.5 Mg/3 Ml) 3 ml NEB Q4HRRT PRN PRN Reason: Wheezing Enoxaparin Sodium (Lovenox) 40 mg SUBCUT Q24H [facility] Last Admin: 10/20/17 23:57 Dose: 40 mg Sodium Chloride (Normal Saline) 500 mls @ 999 mls/hr IV STAT [facility] Last Admin: 10/20/17 20:12 Dose: 999 mls/hr Lactated Ringer's (Ringers, Lactated) 1,000 mls @ 175 mls/hr IV ASDIRECTED [facility] Last Admin: 10/21/17 06:26 Dose: 175 mls/hr Levofloxacin/Dextrose 750 mg/ (Premix) 150 mls @ 100 mls/hr IV Q24H [facility] Last Admin: 10/21/17 01:27 Dose: 100 mls/hr Piperacillin Sod/Tazobactam (Sod 4.5 gm/ Sodium Chloride) 100 mls @ 100 mls/hr IV Q6H [facility] Last Admin: 10/21/17 09:40 Dose: 100 mls/hr Vancomycin HCl 1 gm/ Sodium (Chloride) 250 mls @ 250 mls/hr IV Q8H [facility] Last Admin: 10/21/17 11:10 Dose: 250 mls/hr Lorazepam (Ativan) 1 mg IVPUSH Q4H PRN PRN Reason: Anxiety Morphine Sulfate (Morphine) 2 mg IVPUSH Q2H PRN PRN Reason: Pain (severe 7-10) Nicotine (Habitrol) 7 mg TRDERM DAILY [facility] Last Admin: 10/21/17 08:22 Dose: 7 mg Ondansetron HCl (Zofran Odt) 4 mg PO Q4H PRN PRN Reason: nausea, able to take PO Ondansetron HCl (Zofran) 4 mg IVPUSH Q4H PRN PRN Reason: Nausea Sodium Chloride (Saline Flush) 10 ml FLUSH ASDIRECTED PRN PRN Reason: Keep Vein Open Sodium Chloride (Saline Flush) 2.5 ml FLUSH ASDIRECTED PRN PRN Reason: Keep Vein Open Sodium Phosphate (Neutra-Phos) 250 mg PO QID [facility] Stop: 10/22/17 06:01 Last Admin: 10/21/17 11:10 Dose: 250 mg Vancomycin HCl (Pharmacy To Dose - Vancomycin) 1 dose .XX ASDIRECTED [facility] Discontinued Medications Lactated Ringer's (Ringers, Lactated) 1,000 mls @ 999 mls/hr IV .BOLUS ONE Stop: 10/20/17 21:33 Last Admin: 10/20/17 21:10 Dose: 999 mls/hr Ceftriaxone Sodium/Dextrose 2 (gm/ Premix) 50 mls @ 100 mls/hr IV ONETIME ONE Stop: 10/20/17 21:19 Last Admin: 10/20/17 21:14 Dose: 100 mls/hr Sodium Chloride (Normal Saline) 1,000 mls @ 999 mls/hr IV STAT ONE Stop: 10/20/17 21:51 Last Admin: 10/20/17 22:15 Dose: 999 mls/hr Vancomycin HCl 1 gm/ Sodium (Chloride) 250 mls @ 250 mls/hr IV ONETIME ONE Stop: 10/20/17 21:49 Last Admin: 10/20/17 21:16 Dose: 250 mls/hr Levofloxacin/Dextrose 750 mg/ (Premix) 150 mls @ 100 mls/hr IV ONETIME ONE Stop: 10/20/17 22:21 Last Admin: 10/20/17 23:56 Dose: Not Given Albumin Human (Buminate 5%) 250 mls @ 125 mls/hr IV Q2H [facility] Stop: 10/21/17 00:59 Last Admin: 10/21/17 01:00 Dose: 125 mls/hr Vancomycin HCl 0.75 gm/ Sodium (Chloride) 250 mls @ 250 mls/hr IV ONETIME ONE Stop: 10/20/17 23:59 Last Admin: 10/20/17 23:45 Dose: 250 mls/hr Vancomycin HCl 0.75 gm/ Sodium (Chloride) 250 mls @ 166.667 mls/hr IV Q8H [facility] Last Admin: 10/21/17 04:46 Dose: 166.667 mls/hr Sodium Chloride (Normal Saline) 1,000 mls @ 1,000 mls/hr IV .Bolus ONE Stop: 10/21/17 03:45 Last Admin: 10/21/17 03:04 Dose: 1,000 mls/hr Sodium Chloride (Normal Saline) 1,000 mls @ 1,000 mls/hr IV .Bolus ONE Stop: 10/21/17 05:46 Last Admin: 10/21/17 05:13 Dose: 1,000 mls/hr Magnesium Sulfate 2 gm/ Premix 50 mls @ 50 mls/hr IV ONETIME ONE Stop: 10/21/17 07:57 Last Admin: 10/21/17 08:22 Dose: 50 mls/hr Magnesium Sulfate 4 gm/ Premix 100 mls @ 50 mls/hr IV ONETIME ONE Stop: 10/21/17 11:04 Last Admin: 10/21/17 09:14 Dose: Not Given Morphine Sulfate (Morphine) 2 mg IVPUSH Q2H PRN PRN Reason: Pain (severe 7-10) Stop: 10/21/17 22:13 Potassium Chloride (Potassium Chloride) 40 meq PO ONETIME ONE Stop: 10/21/17 06:58 Last Admin: 10/21/17 08:22 Dose: 40 meq Potassium Chloride (Potassium Chloride) 40 meq PO ONETIME ONE Stop: 10/21/17 09:07 Last Admin: 10/21/17 09:14 Dose: Not Given - Exam General: Alert, Oriented, Cooperative, Mild Distress Lungs: Normal Respiratory Effort, Decreased Breath Sounds Cardiovascular: Regular Rate, Regular Rhythm, Other (Mild chest wall tenderness on the right) GI/Abdominal Exam: Normal Bowel Sounds Back Exam: Normal Inspection Extremities: Normal Inspection, Normal Range of Motion - Problem List Review Problem List Initiated/Reviewed/Updated: Yes - My Orders Last 24 Hours: My Active Orders 10/21/17 11:24 Albuterol/Ipratropium [DuoNeb 3.0-0.5 MG/3 ML] 3 ml NEB Q4HRRT PRN 10/21/17 11:25 RT Aerosol Therapy [RC] ASDIRECTED - Plan Plan:: 27-year-old female admitted 10/20/17 for sepsis secondary to pneumonia found to be methamphetamine positive with past medical history of fibromyalgia, anxiety, depression Sepsis/pneumonia: Most likely secondary to pneumonia. We'll treat with Zosyn, Levaquin and vancomycin. Will narrow antibiotic coverage as patient improves and culture results are obtained. Did get sputum culture. Blood cultures obtained. IV fluid resuscitation for hypotension with boluses as needed. Normal lactate. Acute kidney injury: Most likely secondary to volume depletion. Continue to monitor with IV fluids. Methamphetamine abuse: I placed patient on Ativan as needed for anxiety we'll continue to monitor. update 10/21/17 - I spoke with eICU on regard to the patient's IV antibiotic coverage. EICU did recommend that the patient's IV antibiotics be downgraded to either azithromycin or doxycycline. However, after speaking with Dr. Braun we have decided to keep the patient on the broad-spectrum coverage up until the sputum cultures come back due to the patient's positive history of methamphetamine usage and the possibility of more resistant strains causing this current etiology. Patient's hypo-magnesium, and hypophosphorous are being replaced. Patient is also complaining of right chest wall tenderness along the area of her pneumonia, (an ongoing issue for this patient, she states she does have fibromyalgia. Just simply placing a stethoscope on the right chest wall area and back does elicit pain. Likelihood that this is more related to her pneumonia process as well as fibromyalgia rather than a PE. VTE: Lovenox, SCD Dispo: 2-4 days pending.
[2017-10-21] MEDS ORDERED: Polyethylene Glycol 3350 Powder 17 GM Packet PO ONE (17:57)
[2017-10-21] MEDS: Polyethylene Glycol 3350 Powder 17 GM Packet PO SCH (18:13)
[2017-10-21] MEDS ORDERED: Docusate Sodium 100 MG Cap PO PRN (18:17)
[2017-10-21] MEDS: Enoxaparin 40 MG/0.4 ML Syringe SUBCUT SCH (21:26)
[2017-10-22] MEDS: Lactated Ringers 1,000 ML IV SCH ×2 (00:37→08:55)
[2017-10-22] MEDS: Levofloxacin/Dextrose 5%-Water 750 MG in Premix Bag 1 BAG IV SCH (01:21)
[2017-10-22] MEDS: Piperacillin/Tazobactam 4.5 GM in Sodium Chloride 0.9% 100 ML IV SCH (03:00)
[2017-10-22] MEDS: Acetaminophen/HYDROcodone 325-5 MG Tab PO PRN ×2 (03:40→08:48)
[2017-10-22 05:59] LABS: CHLORIDE,CL 108 mmol/L (98-107); SODIUM,NA 139 mmol/L (136-145)
[2017-10-22] MEDS: Phosphorus #1 250 MG Tab PO SCH (06:33)
[2017-10-22] MEDS ORDERED: diphenhydrAMINE 50 MG/ML SDV IVPUSH PRN (06:49)
[2017-10-22] MEDS: Nicotine 7 MG/24 Hr Patch TRDERM SCH (08:48)
[2017-10-22] MEDS: Polyethylene Glycol 3350 Powder 17 GM Packet PO SCH (08:58)
[2017-10-22] MEDS ORDERED: LORazepam 1 MG Tab PO PRN (09:30)
[2017-10-22] MEDS: Gabapentin 800 MG Tab PO SCH ×3 (09:40→21:38)
[2017-10-22] MEDS: metroNIDAZOLE 250 MG Tab PO SCH ×2 (11:34→21:38)
[2017-10-22] MEDS ORDERED: Morphine 4 MG/ML Syringe IVPUSH PRN (15:17)
--- NOTE | 2017-10-22 20:27 | PCM.PN ---
- General Info Date of Service: 10/22/17 Subjective Update: Patient from a respiratory standpoint has improved, her hypotension is also improved. She still having generalized pain in particular along the right side of the chest wall which is reproducible. Patient will be restarted on her gabapentin. And moved to the floor as the patient no longer requires ICU. - Patient Data Vitals - Most Recent: Last Vital Signs Temp 36.2 C 10/22/17 16:10 Pulse 100 10/22/17 16:10 Resp 22 H 10/22/17 16:10 BP 123/76 10/22/17 16:10 Pulse Ox 90 L 10/22/17 16:10 Weight - Most Recent: 66.5 kg I&O - Last 24 Hours: Intake & Output 10/22/17 10/22/17 10/22/17 06:59 14:59 22:59 Intake Total 2625 650 200 Output Total 750 400 Balance 1875 650 -200 Lab Results Last 24 Hours: Laboratory Results - last 24 hr 10/22/17 10/22/17 10/22/17 Range/Units 05:14 05:14 05:14 WBC 13.43 H (4.0-11.0) K/uL RBC 3.81 L (4.30-5.90) M/uL Hgb 11.5 L (12.0-16.0) g/dL Hct 34.3 L (36.0-46.0) % MCV 90.0 (80.0-98.0) fL MCH 30.2 (27.0-32.0) pg MCHC 33.5 (31.0-37.0) g/dL RDW Std Deviation 42.1 (28.0-62.0) fl RDW Coeff of Alex 13 (11.0-15.0) % Plt Count 176 (150-400) K/uL MPV 10.00 (7.40-12.00) fL Neut % (Auto) 76.3 (48.0-80.0) % Lymph % (Auto) 10.3 L (16.0-40.0) % [place] % (Auto) 9.6 (0.0-15.0) % Eos % (Auto) 3.6 (0.0-7.0) % Baso % (Auto) 0.2 (0.0-1.5) % Neut # (Auto) 10.2 H (1.4-5.7) K/uL Lymph # (Auto) 1.4 (0.6-2.4) K/uL [place] # (Auto) 1.3 H (0.0-0.8) K/uL Eos # (Auto) 0.5 (0.0-0.7) K/uL Baso # (Auto) 0.0 (0.0-0.1) K/uL Nucleated RBC % 0.0 /100WBC Nucleated RBCs # 0 K/uL Sodium 139 (136-145) mmol/L Potassium 4.0 (3.5-5.1) mmol/L Chloride 108 H (98-107) mmol/L Carbon Dioxide 24.6 (21.0-32.0) mmol/L BUN 10 (7.0-18.0) mg/dL Creatinine 0.8 (0.6-1.0) mg/dL Est Cr Clr Drug Dosing 97.13 mL/min Estimated GFR (MDRD) > 60.0 ml/min Glucose 84 (74-106) mg/dL Calcium 8.0 L (8.5-10.1) mg/dL Phosphorus 3.2 (2.6-4.7) mg/dL Magnesium 1.4 L (1.5-2.0) mg/dL Total Bilirubin 0.3 (0.2-1.0) mg/dL AST 44 H (15-37) IU/L ALT 44 (14-63) IU/L Alkaline Phosphatase 78 (46-116) U/L Total Protein 5.1 L (6.4-8.2) g/dL Albumin 2.0 L (3.4-5.0) g/dL Globulin 3.1 (2.0-3.5) g/dL Albumin/Globulin Ratio 0.7 L (1.3-2.8) Denny Results Last 24 Hours: Microbiology 10/21/17 10:12 Gram Stain - Final Sputum - Expectorated Sputum Culture - Final Normal Respiratory Cirilo Med Orders - Current: Current Medications Acetaminophen (Tylenol) 650 mg PO Q4H PRN PRN Reason: Pain (Mild 1-3)/fever Hydrocodone Bitart/Acetaminophen ([place] 325-5 Mg) 1 tab PO Q4H PRN PRN Reason: Pain (moderate 4-6) Last Admin: 10/22/17 08:48 Dose: 1 tab Albuterol/Ipratropium (Duoneb 3.0-0.5 Mg/3 Ml) 3 ml NEB Q4HRRT PRN PRN Reason: Wheezing Last Admin: 10/21/17 11:36 Dose: 3 ml Diphenhydramine HCl (Benadryl) 25 mg IVPUSH Q8H PRN PRN Reason: Itching Docusate Sodium (Colace) 200 mg PO BID PRN PRN Reason: Constipation Enoxaparin Sodium (Lovenox) 40 mg SUBCUT Q24H [facility] Last Admin: 10/21/17 21:26 Dose: 40 mg Gabapentin (Neurontin) 800 mg PO TID [facility] Last Admin: 10/22/17 15:18 Dose: 800 mg Sodium Chloride (Normal Saline) 500 mls @ 999 mls/hr IV STAT [facility] Last Admin: 10/20/17 20:12 Dose: 999 mls/hr Levofloxacin/Dextrose 750 mg/ (Premix) 150 mls @ 100 mls/hr IV Q24H [facility] Last Admin: 10/22/17 01:21 Dose: 100 mls/hr Lorazepam (Ativan) 1 mg PO Q4H PRN PRN Reason: Anxiety Metronidazole (Metronidazole) 500 mg PO Q12HR [facility] Last Admin: 10/22/17 11:34 Dose: 500 mg Morphine Sulfate (Morphine) 2 mg IVPUSH Q2H PRN PRN Reason: Pain (severe 7-10) Nicotine (Habitrol) 7 mg TRDERM DAILY [facility] Last Admin: 10/22/17 08:48 Dose: 7 mg Ondansetron HCl (Zofran Odt) 4 mg PO Q4H PRN PRN Reason: nausea, able to take PO Ondansetron HCl (Zofran) 4 mg IVPUSH Q4H PRN PRN Reason: Nausea Sodium Chloride (Saline Flush) 10 ml FLUSH ASDIRECTED PRN PRN Reason: Keep Vein Open Sodium Chloride (Saline Flush) 2.5 ml FLUSH ASDIRECTED PRN PRN Reason: Keep Vein Open Discontinued Medications Lactated Ringer's (Ringers, Lactated) 1,000 mls @ 999 mls/hr IV .BOLUS ONE Stop: 10/20/17 21:33 Last Admin: 10/20/17 21:10 Dose: 999 mls/hr Ceftriaxone Sodium/Dextrose 2 (gm/ Premix) 50 mls @ 100 mls/hr IV ONETIME ONE Stop: 10/20/17 21:19 Last Admin: 10/20/17 21:14 Dose: 100 mls/hr Sodium Chloride (Normal Saline) 1,000 mls @ 999 mls/hr IV STAT ONE Stop: 10/20/17 21:51 Last Admin: 10/20/17 22:15 Dose: 999 mls/hr Vancomycin HCl 1 gm/ Sodium (Chloride) 250 mls @ 250 mls/hr IV ONETIME ONE Stop: 10/20/17 21:49 Last Admin: 10/20/17 21:16 Dose: 250 mls/hr Levofloxacin/Dextrose 750 mg/ (Premix) 150 mls @ 100 mls/hr IV ONETIME ONE Stop: 10/20/17 22:21 Last Admin: 10/20/17 23:56 Dose: Not Given Lactated Ringer's (Ringers, Lactated) 1,000 mls @ 175 mls/hr IV ASDIRECTED [facility] Last Admin: 10/22/17 08:55 Dose: 175 mls/hr Piperacillin Sod/Tazobactam (Sod 4.5 gm/ Sodium Chloride) 100 mls @ 100 mls/hr IV Q6H [facility] Last Admin: 10/22/17 03:00 Dose: 100 mls/hr Albumin Human (Buminate 5%) 250 mls @ 125 mls/hr IV Q2H [facility] Stop: 10/21/17 00:59 Last Admin: 10/21/17 01:00 Dose: 125 mls/hr Vancomycin HCl 0.75 gm/ Sodium (Chloride) 250 mls @ 250 mls/hr IV ONETIME ONE Stop: 10/20/17 23:59 Last Admin: 10/20/17 23:45 Dose: 250 mls/hr Vancomycin HCl 0.75 gm/ Sodium (Chloride) 250 mls @ 166.667 mls/hr IV Q8H [facility] Last Admin: 10/21/17 04:46 Dose: 166.667 mls/hr Sodium Chloride (Normal Saline) 1,000 mls @ 1,000 mls/hr IV .Bolus ONE Stop: 10/21/17 03:45 Last Admin: 10/21/17 03:04 Dose: 1,000 mls/hr Sodium Chloride (Normal Saline) 1,000 mls @ 1,000 mls/hr IV .Bolus ONE Stop: 10/21/17 05:46 Last Admin: 10/21/17 05:13 Dose: 1,000 mls/hr Magnesium Sulfate 2 gm/ Premix 50 mls @ 50 mls/hr IV ONETIME ONE Stop: 10/21/17 07:57 Last Admin: 10/21/17 08:22 Dose: 50 mls/hr Vancomycin HCl 1 gm/ Sodium (Chloride) 250 mls @ 250 mls/hr IV Q8H [facility] Last Admin: 10/22/17 03:58 Dose: 250 mls/hr Magnesium Sulfate 4 gm/ Premix 100 mls @ 50 mls/hr IV ONETIME ONE Stop: 10/21/17 11:04 Last Admin: 10/21/17 09:14 Dose: Not Given Lorazepam (Ativan) 1 mg IVPUSH Q4H PRN PRN Reason: Anxiety Morphine Sulfate (Morphine) 2 mg IVPUSH Q2H PRN PRN Reason: Pain (severe 7-10) Stop: 10/21/17 22:13 Morphine Sulfate (Morphine) 2 mg IVPUSH Q2H PRN PRN Reason: Pain (severe 7-10) Polyethylene Glycol (Miralax) 17 gm PO ONETIME ONE Stop: 10/21/17 17:58 Last Admin: 10/21/17 18:00 Dose: Not Given Polyethylene Glycol (Miralax) 17 gm PO DAILY [facility] Last Admin: 10/22/17 08:58 Dose: Not Given Potassium Chloride (Potassium Chloride) 40 meq PO ONETIME ONE Stop: 10/21/17 06:58 Last Admin: 10/21/17 08:22 Dose: 40 meq Potassium Chloride (Potassium Chloride) 40 meq PO ONETIME ONE Stop: 10/21/17 09:07 Last Admin: 10/21/17 09:14 Dose: Not Given Sodium Phosphate (Neutra-Phos) 250 mg PO QID [facility] Stop: 10/22/17 06:01 Last Admin: 10/22/17 06:33 Dose: 250 mg Vancomycin HCl (Pharmacy To Dose - Vancomycin) 1 dose .XX ASDIRECTED [place] - Exam Quality Assessment: Supplemental Oxygen General: Alert, Oriented, Cooperative, Mild Distress Lungs: Decreased Breath Sounds Cardiovascular: Regular Rhythm, Tachycardia Back Exam: Normal Inspection - Problem List & Annotations (1) Bacterial vaginosis SNOMED Code(s): 343213642 Code(s): N76.0 - ACUTE VAGINITIS; B96.89 - OTH BACTERIAL AGENTS THE CAUSE OF DISEASES CLASSD [id number] Status: Acute Current Visit: Yes - Problem List Review Problem List Initiated/Reviewed/Updated: Yes - My Orders Last 24 Hours: My Active Orders 10/22/17 09:30 Transfer Patient (Change bed) [ADT] Routine Gabapentin [Neurontin] 800 mg PO TID LORazepam [Ativan] 1 mg PO Q4H PRN - Plan Plan:: 27-year-old female admitted 10/20/17 for sepsis secondary to pneumonia found to be methamphetamine positive with past medical history of fibromyalgia, anxiety, depression Sepsis/pneumonia: Most likely secondary to pneumonia. We'll treat with Zosyn, Levaquin and vancomycin. Will narrow antibiotic coverage as patient improves and culture results are obtained. Did get sputum culture. Blood cultures obtained. IV fluid resuscitation for hypotension with boluses as needed. Normal lactate. Acute kidney injury: Most likely secondary to volume depletion. Continue to monitor with IV fluids. Methamphetamine abuse: I placed patient on Ativan as needed for anxiety we'll continue to monitor. update 10/21/17 - I spoke with eICU on regard to the patient's IV antibiotic coverage. EICU did recommend that the patient's IV antibiotics be downgraded to either azithromycin or doxycycline. However, after speaking with Dr. Braun we have decided to keep the patient on the broad-spectrum coverage up until the sputum cultures come back due to the patient's positive history of methamphetamine usage and the possibility of more resistant strains causing this current etiology. Patient's hypo-magnesium, and hypophosphorous are being replaced. Patient is also complaining of right chest wall tenderness along the area of her pneumonia, (an ongoing issue for this patient, she states she does have fibromyalgia. Just simply placing a stethoscope on the right chest wall area and back does elicit pain. Likelihood that this is more related to her pneumonia process as well as fibromyalgia rather than a PE. VTE: Lovenox, SCD Update 10/22/2017 Patient's sputum culture. Show normal respiratory cirilo, we will continue with the patient's Levaquin as the patient has had it already for a couple of days. We will discontinue the rest of the patient's medications including her vancomycin and Zosyn. Patient's urine clean catch did grow out Gardnerella vaginosis as such we will treat the patient's bacterial vaginosis with metronidazole 500 mg twice a day Dispo: 2-4 days pending.
[2017-10-22] MEDS: Enoxaparin 40 MG/0.4 ML Syringe SUBCUT SCH (21:37)
[2017-10-23] MEDS: Levofloxacin/Dextrose 5%-Water 750 MG in Premix Bag 1 BAG IV SCH (02:27)
[2017-10-23] MEDS: Gabapentin 800 MG Tab PO SCH ×2 (05:50→13:50)
[2017-10-23 06:14] LABS: CHLORIDE,CL 107 mmol/L (98-107); SODIUM,NA 138 mmol/L (136-145)
[2017-10-23] MEDS ORDERED: guaiFENesin/Dextromethorphan 100-10 MG/5 ML Soln 10 ML Cup PO PRN (09:20)
[2017-10-23] MEDS: Nicotine 7 MG/24 Hr Patch TRDERM SCH (09:40)
[2017-10-23] MEDS: metroNIDAZOLE 250 MG Tab PO SCH (09:41)
[2017-10-23] MEDS: Acetaminophen/HYDROcodone 325-5 MG Tab PO PRN (09:42)
[2017-10-23] MEDS ORDERED: Loperamide 2 MG Cap PO ONE (13:32)
[2017-10-23 15:39] VITALS: BP 96/54
--- NOTE | 2017-10-23 21:20 | PCM.DCSUM1 ---
<Ramu Chavez Z - Last Filed: 10/25/17 16:46> Discharge Summary - Hospital Course HPI Initial Comments: Discharge Summary Date of admission: 10/18/2017 Date of discharge: 10/23/2017 Admitting diagnosis: #1. Suspected community-acquired pneumonia #2. Methamphetamine use positive #3. Fibromyalgia #4. #5. Discharge diagnoses: #1. Community-acquired pneumonia suspected with normal respiratory cirilo #2. Fibromyalgia requiring gabapentin #3. Methamphetamine use #4. Bacterial vaginosis positive on urine clean catch for Gardnerella vaginosis #5. Consultations: None Procedures: None Hospitalization course: Patient was admitted to the ICU secondary to shortness of breath, hypotension, likely sepsis due to a pneumonia process. The suspicion was community-acquired pneumonia however the patient did have a positive methamphetamine use in the drug screen for which the broad-spectrum antibiotics were put into place. Patient hypotension and sepsis picture improved by day 2 of admission, patient was stable however still having shortness of breath requiring O2 support. Patient was complaining of right sided back pain radiating around to the anterior aspect of the chest wall, the suspicion was likely chest wall tenderness due to cough, pneumonia process, fibromyalgia. Patient's gabapentin was restarted. Patient prior to discharge had been moved to the regular floor, a positive diagnosis of back. Vaginosis was made on the urine clean catch for which the patient was treated with metronidazole, and patient's antibiotics were de-escalated to just simply Levaquin. Patient was subsequently discharged with follow-up and establish care with a primary care provider Disposition on discharge: Home Condition on discharge: Stable Discharge medications: Levaquin, continuation of home medication, metronidazole Follow-up instructions: Establish care with primary care provider. - Discharge Data Discharge Date: 10/23/17 Discharge Disposition: Home, Self-Care 01 Condition: Good - Discharge Diagnosis/Problem(s) (1) Bacterial vaginosis SNOMED Code(s): 297979579 ICD Code: N76.0 - ACUTE VAGINITIS; B96.89 - OTH BACTERIAL AGENTS THE CAUSE OF DISEASES CLASSD ELSWHR Status: Acute - Patient Instructions Diet: Usual Diet as Tolerated Activity: As Tolerated Driving: Do Not Drive Showering/Bathing: May Shower Notify Provider of: Fever, Increased Pain, Swelling and Redness, Nausea and/or Vomiting - Discharge Plan Prescriptions/Med Rec: Levofloxacin [Levaquin] 750 mg PO DAILY 7 Days #7 tab Metronidazole [IJD: metroNIDAZOLE] 500 mg PO .EVERY 12 HOURS 6 Days #12 tab Home Medications: Home Meds Gabapentin [Neurontin] 800 mg PO TID 10/20/17 [History] FLUoxetine [PROzac] 10 mg PO DAILY 10/21/17 [History] Levofloxacin [Levaquin] 750 mg PO DAILY 7 Days #7 tab 10/23/17 [Rx] Metronidazole [IJD: metroNIDAZOLE] 500 mg PO .EVERY 12 HOURS 6 Days #12 tab [Rx] Patient Handouts: Metronidazole extended-release tablets, Levofloxacin tablets , Community-Acquired Pneumonia, Adult, [id number] Referrals: Sixto Martinez MD [Resident] - 10/26/17 1:45 pm - Discharge Summary/Plan Comment DC Time >30 min.: No - Patient Data Vitals - Most Recent: Last Vital Signs Temp 37.0 C 10/23/17 15:38 Pulse 113 H 10/23/17 15:38 Resp 18 10/23/17 15:38 BP 96/54 L 10/23/17 15:38 Pulse Ox 97 10/23/17 15:38 Weight - Most Recent: 62.913 kg I&O - Last 24 hours: Intake & Output 10/23/17 10/23/17 10/23/17 06:59 14:59 22:59 Intake Total 910 920 Output Total 700 2100 Balance 210 -1180 Lab Results - Last 24 hrs: Laboratory Results - last 24 hr 10/23/17 10/23/17 Range/Units 05:40 05:40 WBC 11.90 H (4.0-11.0) K/uL RBC 4.32 (4.30-5.90) M/uL Hgb 12.8 (12.0-16.0) g/dL Hct 37.6 (36.0-46.0) % MCV 87.0 (80.0-98.0) fL MCH 29.6 (27.0-32.0) pg MCHC 34.0 (31.0-37.0) g/dL RDW Std Deviation 40.2 (28.0-62.0) fl RDW Coeff of Alex 12 (11.0-15.0) % Plt Count 249 (150-400) K/uL MPV 9.50 (7.40-12.00) fL Add Manual Diff YES Neutrophils % (Manual) 68 (48.0-80.0) % Band Neutrophils % 2 % Lymphocytes % (Manual) 26 (16.0-40.0) % Monocytes % (Manual) 3 (0.0-15.0) % Eosinophils % (Manual) 1 (0.0-7.0) % Nucleated RBC % 0.0 /100WBC Absolute Seg Neuts 8.1 H (1.4-5.7) Band Neutrophils # 0.2 Lymphocytes # (Manual) 3.1 H (0.6-2.4) Monocytes # (Manual) 0.4 (0.0-0.8) Eosinophils # (Manual) 0.1 (0.0-0.7) Nucleated RBCs # 0 K/uL Sodium 138 (136-145) mmol/L Potassium 3.8 (3.5-5.1) mmol/L Chloride 107 (98-107) mmol/L Carbon Dioxide 24.0 (21.0-32.0) mmol/L BUN 5 L (7.0-18.0) mg/dL Creatinine 0.7 (0.6-1.0) mg/dL Est Cr Clr Drug Dosing 111.01 mL/min Estimated GFR (MDRD) > 60.0 ml/min Glucose 99 (74-106) mg/dL Calcium 7.9 L (8.5-10.1) mg/dL Total Bilirubin 0.2 (0.2-1.0) mg/dL AST 27 (15-37) IU/L ALT 39 (14-63) IU/L Alkaline Phosphatase 91 (46-116) U/L Total Protein 5.3 L (6.4-8.2) g/dL Albumin 2.0 L (3.4-5.0) g/dL Globulin 3.3 (2.0-3.5) g/dL Albumin/Globulin Ratio 0.6 L (1.3-2.8) Med Orders - Current: Current Medications Discontinued Medications Acetaminophen (Tylenol) 650 mg PO Q4H PRN PRN Reason: Pain (Mild 1-3)/fever Hydrocodone Bitart/Acetaminophen ([place] 325-5 Mg) 1 tab PO Q4H PRN PRN Reason: Pain (moderate 4-6) Last Admin: 10/23/17 09:42 Dose: 1 tab Albuterol/Ipratropium (Duoneb 3.0-0.5 Mg/3 Ml) 3 ml NEB Q4HRRT PRN PRN Reason: Wheezing Last Admin: 10/21/17 11:36 Dose: 3 ml Diphenhydramine HCl (Benadryl) 25 mg IVPUSH Q8H PRN PRN Reason: Itching Docusate Sodium (Colace) 200 mg PO BID PRN PRN Reason: Constipation Enoxaparin Sodium (Lovenox) 40 mg SUBCUT Q24H [facility] Last Admin: 10/22/17 21:37 Dose: 40 mg Gabapentin (Neurontin) 800 mg PO TID [facility] Last Admin: 10/23/17 13:50 Dose: 800 mg Guaifenesin/Dextromethorphan (Robitussin Dm) 10 ml PO Q4H PRN PRN Reason: Cough Last Admin: 10/23/17 09:56 Dose: 10 ml Sodium Chloride (Normal Saline) 500 mls @ 999 mls/hr IV STAT [facility] Last Admin: 10/20/17 20:12 Dose: 999 mls/hr Lactated Ringer's (Ringers, Lactated) 1,000 mls @ 999 mls/hr IV .BOLUS ONE Stop: 10/20/17 21:33 Last Admin: 10/20/17 21:10 Dose: 999 mls/hr Ceftriaxone Sodium/Dextrose 2 (gm/ Premix) 50 mls @ 100 mls/hr IV ONETIME ONE Stop: 10/20/17 21:19 Last Admin: 10/20/17 21:14 Dose: 100 mls/hr Sodium Chloride (Normal Saline) 1,000 mls @ 999 mls/hr IV STAT ONE Stop: 10/20/17 21:51 Last Admin: 10/20/17 22:15 Dose: 999 mls/hr Vancomycin HCl 1 gm/ Sodium (Chloride) 250 mls @ 250 mls/hr IV ONETIME ONE Stop: 10/20/17 21:49 Last Admin: 10/20/17 21:16 Dose: 250 mls/hr Levofloxacin/Dextrose 750 mg/ (Premix) 150 mls @ 100 mls/hr IV ONETIME ONE Stop: 10/20/17 22:21 Last Admin: 10/20/17 23:56 Dose: Not Given Lactated Ringer's (Ringers, Lactated) 1,000 mls @ 175 mls/hr IV ASDIRECTED [facility] Last Admin: 10/22/17 08:55 Dose: 175 mls/hr Levofloxacin/Dextrose 750 mg/ (Premix) 150 mls @ 100 mls/hr IV Q24H [facility] Last Admin: 10/23/17 02:27 Dose: 100 mls/hr Piperacillin Sod/Tazobactam (Sod 4.5 gm/ Sodium Chloride) 100 mls @ 100 mls/hr IV Q6H [facility] Last Admin: 10/22/17 03:00 Dose: 100 mls/hr Albumin Human (Buminate 5%) 250 mls @ 125 mls/hr IV Q2H [facility] Stop: 10/21/17 00:59 Last Admin: 10/21/17 01:00 Dose: 125 mls/hr Vancomycin HCl 0.75 gm/ Sodium (Chloride) 250 mls @ 250 mls/hr IV ONETIME ONE Stop: 10/20/17 23:59 Last Admin: 10/20/17 23:45 Dose: 250 mls/hr Vancomycin HCl 0.75 gm/ Sodium (Chloride) 250 mls @ 166.667 mls/hr IV Q8H [facility] Last Admin: 10/21/17 04:46 Dose: 166.667 mls/hr Sodium Chloride (Normal Saline) 1,000 mls @ 1,000 mls/hr IV .Bolus ONE Stop: 10/21/17 03:45 Last Admin: 10/21/17 03:04 Dose: 1,000 mls/hr Sodium Chloride (Normal Saline) 1,000 mls @ 1,000 mls/hr IV .Bolus ONE Stop: 10/21/17 05:46 Last Admin: 10/21/17 05:13 Dose: 1,000 mls/hr Magnesium Sulfate 2 gm/ Premix 50 mls @ 50 mls/hr IV ONETIME ONE Stop: 10/21/17 07:57 Last Admin: 10/21/17 08:22 Dose: 50 mls/hr Vancomycin HCl 1 gm/ Sodium (Chloride) 250 mls @ 250 mls/hr IV Q8H [facility] Last Admin: 10/22/17 03:58 Dose: 250 mls/hr Magnesium Sulfate 4 gm/ Premix 100 mls @ 50 mls/hr IV ONETIME ONE Stop: 10/21/17 11:04 Last Admin: 10/21/17 09:14 Dose: Not Given Loperamide HCl (Imodium) 2 mg PO ONETIME ONE Stop: 10/23/17 13:33 Last Admin: 10/23/17 13:50 Dose: 2 mg Lorazepam (Ativan) 1 mg IVPUSH Q4H PRN PRN Reason: Anxiety Lorazepam (Ativan) 1 mg PO Q4H PRN PRN Reason: Anxiety Metronidazole (Metronidazole) 500 mg PO Q12HR [facility] Last Admin: 10/23/17 09:41 Dose: 500 mg Morphine Sulfate (Morphine) 2 mg IVPUSH Q2H PRN PRN Reason: Pain (severe 7-10) Stop: 10/21/17 22:13 Morphine Sulfate (Morphine) 2 mg IVPUSH Q2H PRN PRN Reason: Pain (severe 7-10) Morphine Sulfate (Morphine) 2 mg IVPUSH Q2H PRN PRN Reason: Pain (severe 7-10) Nicotine (Habitrol) 7 mg TRDERM DAILY [facility] Last Admin: 10/23/17 09:40 Dose: 7 mg Ondansetron HCl (Zofran Odt) 4 mg PO Q4H PRN PRN Reason: nausea, able to take PO Ondansetron HCl (Zofran) 4 mg IVPUSH Q4H PRN PRN Reason: Nausea Polyethylene Glycol (Miralax) 17 gm PO ONETIME ONE Stop: 10/21/17 17:58 Last Admin: 10/21/17 18:00 Dose: Not Given Polyethylene Glycol (Miralax) 17 gm PO DAILY [facility] Last Admin: 10/22/17 08:58 Dose: Not Given Potassium Chloride (Potassium Chloride) 40 meq PO ONETIME ONE Stop: 10/21/17 06:58 Last Admin: 10/21/17 08:22 Dose: 40 meq Potassium Chloride (Potassium Chloride) 40 meq PO ONETIME ONE Stop: 10/21/17 09:07 Last Admin: 10/21/17 09:14 Dose: Not Given Sodium Chloride (Saline Flush) 10 ml FLUSH ASDIRECTED PRN PRN Reason: Keep Vein Open Sodium Chloride (Saline Flush) 2.5 ml FLUSH ASDIRECTED PRN PRN Reason: Keep Vein Open Sodium Phosphate (Neutra-Phos) 250 mg PO QID [facility] Stop: 10/22/17 06:01 Last Admin: 10/22/17 06:33 Dose: 250 mg Vancomycin HCl (Pharmacy To Dose - Vancomycin) 1 dose .XX ASDIRECTED [facility] <Alen Elise - Last Filed: 10/28/17 19:44> - Patient Data Vitals - Most Recent: Last Vital Signs Temp 37.0 C 10/23/17 15:38 Pulse 113 H 10/23/17 15:38 Resp 18 10/23/17 15:38 BP 96/54 L 10/23/17 15:38 Pulse Ox 97 10/23/17 15:38 Med Orders - Current: Current Medications Discontinued Medications Acetaminophen (Tylenol) 650 mg PO Q4H PRN PRN Reason: Pain (Mild 1-3)/fever Hydrocodone Bitart/Acetaminophen ([place] 325-5 Mg) 1 tab PO Q4H PRN PRN Reason: Pain (moderate 4-6) Last Admin: 10/23/17 09:42 Dose: 1 tab Albuterol/Ipratropium (Duoneb 3.0-0.5 Mg/3 Ml) 3 ml NEB Q4HRRT PRN PRN Reason: Wheezing Last Admin: 10/21/17 11:36 Dose: 3 ml Diphenhydramine HCl (Benadryl) 25 mg IVPUSH Q8H PRN PRN Reason: Itching Docusate Sodium (Colace) 200 mg PO BID PRN PRN Reason: Constipation Enoxaparin Sodium (Lovenox) 40 mg SUBCUT Q24H [facility] Last Admin: 10/22/17 21:37 Dose: 40 mg Gabapentin (Neurontin) 800 mg PO TID [facility] Last Admin: 10/23/17 13:50 Dose: 800 mg Guaifenesin/Dextromethorphan (Robitussin Dm) 10 ml PO Q4H PRN PRN Reason: Cough Last Admin: 10/23/17 09:56 Dose: 10 ml Sodium Chloride (Normal Saline) 500 mls @ 999 mls/hr IV STAT [facility] Last Admin: 10/20/17 20:12 Dose: 999 mls/hr Lactated Ringer's (Ringers, Lactated) 1,000 mls @ 999 mls/hr IV .BOLUS ONE Stop: 10/20/17 21:33 Last Admin: 10/20/17 21:10 Dose: 999 mls/hr Ceftriaxone Sodium/Dextrose 2 (gm/ Premix) 50 mls @ 100 mls/hr IV ONETIME ONE Stop: 10/20/17 21:19 Last Admin: 10/20/17 21:14 Dose: 100 mls/hr Sodium Chloride (Normal Saline) 1,000 mls @ 999 mls/hr IV STAT ONE Stop: 10/20/17 21:51 Last Admin: 10/20/17 22:15 Dose: 999 mls/hr Vancomycin HCl 1 gm/ Sodium (Chloride) 250 mls @ 250 mls/hr IV ONETIME ONE Stop: 10/20/17 21:49 Last Admin: 10/20/17 21:16 Dose: 250 mls/hr Levofloxacin/Dextrose 750 mg/ (Premix) 150 mls @ 100 mls/hr IV ONETIME ONE Stop: 10/20/17 22:21 Last Admin: 10/20/17 23:56 Dose: Not Given Lactated Ringer's (Ringers, Lactated) 1,000 mls @ 175 mls/hr IV ASDIRECTED [facility] Last Admin: 10/22/17 08:55 Dose: 175 mls/hr Levofloxacin/Dextrose 750 mg/ (Premix) 150 mls @ 100 mls/hr IV Q24H [facility] Last Admin: 10/23/17 02:27 Dose: 100 mls/hr Piperacillin Sod/Tazobactam (Sod 4.5 gm/ Sodium Chloride) 100 mls @ 100 mls/hr IV Q6H [facility] Last Admin: 10/22/17 03:00 Dose: 100 mls/hr Albumin Human (Buminate 5%) 250 mls @ 125 mls/hr IV Q2H [facility] Stop: 10/21/17 00:59 Last Admin: 10/21/17 01:00 Dose: 125 mls/hr Vancomycin HCl 0.75 gm/ Sodium (Chloride) 250 mls @ 250 mls/hr IV ONETIME ONE Stop: 10/20/17 23:59 Last Admin: 10/20/17 23:45 Dose: 250 mls/hr Vancomycin HCl 0.75 gm/ Sodium (Chloride) 250 mls @ 166.667 mls/hr IV Q8H [facility] Last Admin: 10/21/17 04:46 Dose: 166.667 mls/hr Sodium Chloride (Normal Saline) 1,000 mls @ 1,000 mls/hr IV .Bolus ONE Stop: 10/21/17 03:45 Last Admin: 10/21/17 03:04 Dose: 1,000 mls/hr Sodium Chloride (Normal Saline) 1,000 mls @ 1,000 mls/hr IV .Bolus ONE Stop: 10/21/17 05:46 Last Admin: 10/21/17 05:13 Dose: 1,000 mls/hr Magnesium Sulfate 2 gm/ Premix 50 mls @ 50 mls/hr IV ONETIME ONE Stop: 10/21/17 07:57 Last Admin: 10/21/17 08:22 Dose: 50 mls/hr Vancomycin HCl 1 gm/ Sodium (Chloride) 250 mls @ 250 mls/hr IV Q8H [facility] Last Admin: 10/22/17 03:58 Dose: 250 mls/hr Magnesium Sulfate 4 gm/ Premix 100 mls @ 50 mls/hr IV ONETIME ONE Stop: 10/21/17 11:04 Last Admin: 10/21/17 09:14 Dose: Not Given Loperamide HCl (Imodium) 2 mg PO ONETIME ONE Stop: 10/23/17 13:33 Last Admin: 10/23/17 13:50 Dose: 2 mg Lorazepam (Ativan) 1 mg IVPUSH Q4H PRN PRN Reason: Anxiety Lorazepam (Ativan) 1 mg PO Q4H PRN PRN Reason: Anxiety Metronidazole (Metronidazole) 500 mg PO Q12HR [facility] Last Admin: 10/23/17 09:41 Dose: 500 mg Morphine Sulfate (Morphine) 2 mg IVPUSH Q2H PRN PRN Reason: Pain (severe 7-10) Stop: 10/21/17 22:13 Morphine Sulfate (Morphine) 2 mg IVPUSH Q2H PRN PRN Reason: Pain (severe 7-10) Morphine Sulfate (Morphine) 2 mg IVPUSH Q2H PRN PRN Reason: Pain (severe 7-10) Nicotine (Habitrol) 7 mg TRDERM DAILY [facility] Last Admin: 10/23/17 09:40 Dose: 7 mg Ondansetron HCl (Zofran Odt) 4 mg PO Q4H PRN PRN Reason: nausea, able to take PO Ondansetron HCl (Zofran) 4 mg IVPUSH Q4H PRN PRN Reason: Nausea Polyethylene Glycol (Miralax) 17 gm PO ONETIME ONE Stop: 10/21/17 17:58 Last Admin: 10/21/17 18:00 Dose: Not Given Polyethylene Glycol (Miralax) 17 gm PO DAILY [facility] Last Admin: 10/22/17 08:58 Dose: Not Given Potassium Chloride (Potassium Chloride) 40 meq PO ONETIME ONE Stop: 10/21/17 06:58 Last Admin: 10/21/17 08:22 Dose: 40 meq Potassium Chloride (Potassium Chloride) 40 meq PO ONETIME ONE Stop: 10/21/17 09:07 Last Admin: 10/21/17 09:14 Dose: Not Given Sodium Chloride (Saline Flush) 10 ml FLUSH ASDIRECTED PRN PRN Reason: Keep Vein Open Sodium Chloride (Saline Flush) 2.5 ml FLUSH ASDIRECTED PRN PRN Reason: Keep Vein Open Sodium Phosphate (Neutra-Phos) 250 mg PO QID [facility] Stop: 10/22/17 06:01 Last Admin: 10/22/17 06:33 Dose: 250 mg Vancomycin HCl (Pharmacy To Dose - Vancomycin) 1 dose .XX ASDIRECTED [facility] - Free Text/Narrative Note: I have examined the patient. I have discussed findings and treatment plan with the resident. I agree with the assessment and plan outlined in the following resident's note.
== END 2017-10-23 18:35 | disposition home or self-care (01) | DRG 871 ==
LOC: MW.ED 19:36 → MW.ICU 21:16 → MW.MS 10-22 14:41
PROVIDERS: ADMIT Family Medicine; ATTEND Family Medicine
DX: A41.9 Sepsis, unspecified organism (principal); J18.1 Lobar pneumonia, unspecified organism; N17.9 Acute kidney failure, unspecified; F15.90 Other stimulant use, unspecified, uncomplicated; I95.9 Hypotension, unspecified; M79.7 Fibromyalgia; N76.0 Acute vaginitis; M54.89 Other dorsalgia; B96.89 Other specified bacterial agents as the cause of diseases classified elsewhere; E05.90 Thyrotoxicosis, unspecified without thyrotoxic crisis or storm; F41.8 Other specified anxiety disorders; F17.210 Nicotine dependence, cigarettes, uncomplicated; Z79.899 Other long term (current) drug therapy
CPT/HCPCS: 36415; 71046; 80053; 80305; 81003; 81025; 83605; 85025; 87040 ×2; 87086; 96361; 96365; 99285; J0696; J7040; J7120; 83735; 84100; 87070; 87205; 87804; 94640; 96367; 99283; A9270-GY; J1650; J1956; J2543; J3370; J3475; J7030; J7050

== ENCOUNTER 2018-01-24 11:10 | Emergency (ER) | payer MEDICAID ==
[2018-01-24] MEDS ORDERED: Ketorolac 60 MG/2 ML SDV IM ONE (11:28)
--- NOTE | 2018-01-24 11:29 | EDM.PDOC ---
ED HPI GENERAL MEDICAL PROBLEM - General Chief Complaint: Upper Extremity Injury/Pain Stated Complaint: LT SHOULDER HURTS Time Seen by Provider: 01/24/18 11:11 Source of Information: Reports: Patient History Limitations: Reports: No Limitations - History of Present Illness INITIAL COMMENTS - FREE TEXT/NARRATIVE: History of present illness: []Patient comes in with complaints of left upper extremity pain. She states she has a "split tendon" and her wrist that's radiating to her shoulder. She has had a ganglion cyst in her left wrist that apparently split her tendon. Patient is followed by orthopedic doctor and states that she was supposed to have surgery yesterday but was canceled due to an emergency. Patient cannot tell me what type of surgery she was scheduled for. She denies any new trauma. Review of systems: As per history of present illness and below otherwise all systems reviewed and negative. Past medical history: As per history of present illness and as reviewed below otherwise noncontributory. Surgical history: As per history of present illness and as reviewed below otherwise noncontributory. Social history: No reported history of drug or alcohol abuse. Family history: As per history of present illness and as reviewed below otherwise noncontributory. Physical exam: General: Well developed, well nourished in NAD HEENT: Atraumatic, normocephalic, pupils reactive, negative for conjunctival pallor or scleral icterus, mucous membranes moist, throat clear, neck supple, nontender, trachea midline. Lungs: Clear to auscultation, breath sounds equal bilaterally, chest nontender. Heart: S1S2, regular, negative for clicks, rubs, or JVD. Abdomen: Soft, nondistended, nontender. Negative for masses or hepatosplenomegaly. Negative for costovertebral tenderness. Pelvis: Stable nontender. Genitourinary: Deferred. Rectal: Deferred. Extremities: Atraumatic, symmetrical no deformities. full Range of motion passively and on observation she is moving the shoulder actively without deficit.. negative for cords or calf pain. Neurovascular unremarkable. Neuro: Awake, alert, oriented. Cranial nerves II through XII unremarkable. Cerebellum unremarkable. Motor and sensory unremarkable throughout. Exam nonfocal. Diagnostics: [] Therapeutics: []Toradol IM, arm sling Impression: [] left upper extremity pain Plan: []Follow-up with your orthopedic doctor that has been treating you for this problem use ice to her shoulder and back, we are arm sling for comfort diclofenac for pain. Definitive disposition and diagnosis as appropriate pending reevaluation and review of above. left shoulder Pain Score (Numeric/FACES): 10 - Related Data Allergies Allergy/AdvReac Type Severity Reaction Status Date / Time No Known Allergies Allergy Verified 01/24/18 11:15 Home Meds: Home Meds Gabapentin [Neurontin] 800 mg PO TID 10/20/17 [History] Past Medical History - Past Health History Medical/Surgical History: Denies Medical/Surgical History HEENT History: Reports: None Cardiovascular History: Reports: None Respiratory History: Reports: None Gastrointestinal History: Reports: None Genitourinary History: Reports: None [employer] History: Reports: Musculoskeletal History: Reports: Fibromyalgia Neurological History: Reports: Headaches, Chronic Psychiatric History: Reports: Anxiety, Depression, OCD Endocrine/Metabolic History: Reports: Hyperthyroidism Hematologic History: Reports: None Immunologic History: Reports: None Oncologic (Cancer) History: Reports: None Dermatologic History: Reports: None - Infectious Disease History Infectious Disease History: Reports: Chicken Pox - Past Surgical History Head Surgeries/Procedures: Reports: None HEENT Surgical History: Reports: None Cardiovascular Surgical History: Reports: None Respiratory Surgical History: Reports: None GI Surgical History: Reports: None Female Surgical History: Reports: Section Endocrine Surgical History: Reports: None Neurological Surgical History: Reports: None Musculoskeletal Surgical History: Reports: None Dermatological Surgical History: Reports: None Social & Family History - Family History Family Medical History: Noncontributory - Tobacco Use Smoking Status *Q: Current Every Day Smoker Years of Tobacco use: 15 Packs/Tins Daily: 0.5 - Caffeine Use Caffeine Use: Reports: Coffee, Energy Drinks, Soda, Tea - Recreational Drug Use Recreational Drug Use: No Review of Systems - Review of Systems Review Of Systems: See Below (See history of present illness) ED EXAM, GENERAL - Physical Exam Exam: See Below (See history of present illness) Course - Vital Signs Last Recorded V/S: Last Vital Signs Temp 97.3 F 01/24/18 11:16 Pulse 129 H 01/24/18 11:16 Resp 18 01/24/18 11:16 BP 110/46 L 01/24/18 11:16 Pulse Ox 97 01/24/18 11:16 - Orders/Labs/Meds Orders: Active Orders 24 hr Category Date Time Status Splinting [RC] ASDIRECTED Care 01/24/18 11:27 Active Meds: Medications Discontinued Medications Generic Name Dose Route Start Last Admin Trade Name [place] PRN Reason Stop Dose Admin Ketorolac Tromethamine 60 mg 01/24/18 11:28 Toradol IM 01/24/18 11:29 ONETIME ONE Departure - Departure Time of Disposition: 11:33 Disposition: Home, Self-Care 01 Condition: Good Clinical Impression: Left upper arm pain - Discharge Information Forms: ED Department Discharge Additional Instructions: The following information is given to patients seen in the emergency department who are being discharged to home. This information is to outline your options for follow-up care. We provide all patients seen in our emergency department with a follow-up referral. The need for follow-up, as well as the timing and circumstances, are variable depending upon the specifics of your emergency department visit. If you don't have a primary care physician on staff, we will provide you with a referral. We always advise you to contact your personal physician following an emergency department visit to inform them of the circumstance of the visit and for follow-up with them and/or the need for any referrals to a consulting specialist. The emergency department will also refer you to a specialist when appropriate. This referral assures that you have the opportunity for follow-up care with a specialist. All of these measure are taken in an effort to provide you with optimal care, which includes your follow-up. Under all circumstances we always encourage you to contact your private physician who remains a resource for coordinating your care. When calling for follow-up care, please make the office aware that this follow-up is from your recent emergency room visit. If for any reason you are refused follow-up, please contact the [facility] Emergency Department at and asked to speak to the emergency department charge nurse. Use ice 20 minutes at a time to upper extremity or the area of pain, diclofenac pain as directed, wear arm sling for comfort follow-up with her orthopedic surgeon. - My Orders Last 24 Hours: My Active Orders 01/24/18 11:27 Splinting [RC] ASDIRECTED - Assessment/Plan Last 24 Hours: My Active Orders 01/24/18 11:27 Splinting [RC] ASDIRECTED
[2018-01-24 12:10] VITALS: BP 110/69
== END 2018-01-24 12:13 | disposition home or self-care (01) ==
LOC: MW.ED 11:10
DX: M79.622 Pain in left upper arm (principal); F41.9 Anxiety disorder, unspecified; F32.9 Major depressive disorder, single episode, unspecified; F17.210 Nicotine dependence, cigarettes, uncomplicated; Z79.899 Other long term (current) drug therapy
CPT/HCPCS: 96372; 99283; J1885

== ENCOUNTER 2018-03-30 22:25 | Emergency (ER) | payer MEDICAID, SELFPAY ==
--- NOTE | 2018-03-30 22:30 | EDM.PDOC ---
ED HPI GENERAL MEDICAL PROBLEM - General Stated Complaint: LT SHOULDER HURTS Time Seen by Provider: 03/30/18 22:29 Source of Information: Reports: Patient History Limitations: Reports: No Limitations - History of Present Illness INITIAL COMMENTS - FREE TEXT/NARRATIVE: HISTORY AND PHYSICAL: History of present illness: 28-year-old female presenting with chief complaint of left shoulder and back pain. Patient states that some days ago she fell down the stairs and reinjured her back and shoulder. She has seen her primary care provider Dr. Gloria and they have done x-rays. She has also been to physical therapy and is currently taking narcotics as well as gabapentin. 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 She states that the main reason why she is coming here today is because she's having more muscle spasms and pain. On exam patient is 6 wasn't tender in the left posterior aspect of the shoulder. There is no significant visualized erythema or ecchymosis. Neurovascular intact. Review of systems: As per history of present illness and below otherwise all systems reviewed and negative. Past medical history: As per history of present illness and as reviewed below otherwise noncontributory. Surgical history: As per history of present illness and as reviewed below otherwise noncontributory. Social history: No reported history of drug or alcohol abuse. Family history: As per history of present illness and as reviewed below otherwise noncontributory. Physical exam: HEENT: Atraumatic, normocephalic, pupils reactive, negative for conjunctival pallor or scleral icterus, mucous membranes moist, throat clear, neck supple, nontender, trachea midline. Lungs: Clear to auscultation, breath sounds equal bilaterally, chest nontender. Heart: S1S2, regular, negative for clicks, rubs, or JVD. Abdomen: Soft, nondistended, nontender. Negative for masses or hepatosplenomegaly. Negative for costovertebral tenderness. Pelvis: Stable nontender. Genitourinary: Deferred. Rectal: Deferred. Extremities: Atraumatic, negative for cords or calf pain. Neurovascular unremarkable. Neuro: Awake, alert, oriented. Cranial nerves II through XII unremarkable. Cerebellum unremarkable. Motor and sensory unremarkable throughout. Exam nonfocal. Diagnostics: [] Therapeutics: Flexeril 10 mg by mouth 1 Tordol 60 mg IM 1 Impression: Left shoulder pain Left shoulder muscle spasms Plan: Please see above H&P. Patient has a long history of shoulder and back pain. She has received considerable amount of narcotics in the past month. I did give her prescription for Robaxin and instructed her follow up with her primary care provider return to emergency department if any new or worsening symptoms. Definitive disposition and diagnosis as appropriate pending reevaluation and review of above. left upper back Pain Score (Numeric/FACES): 10 - Related Data Allergies Allergy/AdvReac Type Severity Reaction Status Date / Time No Known Allergies Allergy Verified 03/30/18 22:38 Home Meds: Home Meds Gabapentin [Neurontin] 800 mg PO QID 10/20/17 [History] FLUoxetine [PROzac] 40 mg PO DAILY 03/30/18 [History] OLANZapine [Olanzapine] 10 mg PO DAILY 03/30/18 [History] oxyCODONE HCl/Acetaminophen [Oxycodone-Acetaminophen 5-325] 5 - 325 mg PO Q4HR PRN 03/30/18 [History] Past Medical History - Past Health History Medical/Surgical History: Denies Medical/Surgical History HEENT History: Reports: None Cardiovascular History: Reports: None Respiratory History: Reports: None Gastrointestinal History: Reports: None Genitourinary History: Reports: None 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: Musculoskeletal History: Reports: Fibromyalgia Neurological History: Reports: Headaches, Chronic Psychiatric History: Reports: Anxiety, Depression, OCD Endocrine/Metabolic History: Reports: Hyperthyroidism Hematologic History: Reports: None Immunologic History: Reports: None Oncologic (Cancer) History: Reports: None Dermatologic History: Reports: None - Infectious Disease History Infectious Disease History: Reports: Chicken Pox - Past Surgical History Head Surgeries/Procedures: Reports: None HEENT Surgical History: Reports: None Cardiovascular Surgical History: Reports: None Respiratory Surgical History: Reports: None GI Surgical History: Reports: None Female Surgical History: Reports: Section Endocrine Surgical History: Reports: None Neurological Surgical History: Reports: None Musculoskeletal Surgical History: Reports: None Dermatological Surgical History: Reports: None Social & Family History - Family History Family Medical History: Noncontributory - Caffeine Use Caffeine Use: Reports: Coffee, Energy Drinks, Soda, Tea ED ROS GENERAL - Review of Systems Review Of Systems: ROS reveals no pertinent complaints other than HPI. ED EXAM, GENERAL - Physical Exam Exam: See Below Course - Vital Signs Last Recorded V/S: Last Vital Signs Temp 97.9 F 03/30/18 22:31 Pulse 94 03/30/18 22:31 Resp 18 03/30/18 22:31 BP 129/62 03/30/18 22:31 Pulse Ox 99 03/30/18 22:31 - Orders/Labs/Meds Meds: Medications Discontinued Medications Generic Name Dose Route Start Last Admin Trade Name [place] PRN Reason Stop Dose Admin Cyclobenzaprine HCl 10 mg 03/30/18 23:06 Flexeril PO 03/30/18 23:07 ONETIME ONE Ketorolac Tromethamine 60 mg 03/30/18 23:03 Toradol IM 03/30/18 23:04 ONETIME ONE Departure - Departure Time of Disposition: 23:15 Disposition: Home, Self-Care 01 Clinical Impression: Muscle spasm Left shoulder pain Qualifiers: Chronicity: chronic Qualified Code(s): M25.512 - Pain in left shoulder; G89.29 - Other chronic pain - Discharge Information Referrals: PCP,None [Primary Care Provider] - Additional Instructions: My general discharge The following information is given to patients seen in the emergency department who are being discharged to home. This information is to outline your options for follow-up care. We provide all patients seen in our emergency department with a follow-up referral. The need for follow-up, as well as the timing and circumstances, are variable depending upon the specifics of your emergency department visit. If you don't have a primary care physician on staff, we will provide you with a referral. We always advise you to contact your personal physician following an emergency department visit to inform them of the circumstance of the visit and for follow-up with them and/or the need for any referrals to a consulting specialist. The emergency department will also refer you to a specialist when appropriate. This referral assures that you have the opportunity for follow-up care with a specialist. All of these measure are taken in an effort to provide you with optimal care, which includes your follow-up. Under all circumstances we always encourage you to contact your private physician who remains a resource for coordinating your care. When calling for follow-up care, please make the office aware that this follow-up is from your recent emergency room visit. If for any reason you are refused follow-up, please contact the [facility] Emergency Department at and asked to speak to the emergency department charge nurse. [address] [address] Follow-up with primary care provider Dr. Gloria as we discussed Return emergency department if any new or worsening symptoms. Take medication as prescribed.
[2018-03-30 22:43] VITALS: BP 129/62
[2018-03-30] MEDS ORDERED: Ketorolac 60 MG/2 ML SDV IM ONE (23:03)
[2018-03-30] MEDS ORDERED: Cyclobenzaprine 10 MG Tab PO ONE (23:06)
== END 2018-03-30 23:43 | disposition home or self-care (01) ==
LOC: MW.ED 22:25
DX: M62.838 Other muscle spasm (principal); M25.512 Pain in left shoulder; F41.9 Anxiety disorder, unspecified; F32.9 Major depressive disorder, single episode, unspecified; E05.90 Thyrotoxicosis, unspecified without thyrotoxic crisis or storm; Z79.899 Other long term (current) drug therapy; W10.9XXA Fall (on) (from) unspecified stairs and steps, initial encounter
CPT/HCPCS: 96372; 99283; A9270; J1885

== ENCOUNTER 2018-03-31 01:47 | Emergency (ER) | payer MEDICAID, SELFPAY ==
[2018-03-31 02:01] VITALS: BP 106/66
--- NOTE | 2018-03-31 02:08 | EDM.PDOC ---
ED HPI GENERAL MEDICAL PROBLEM - General Chief Complaint: Laceration Stated Complaint: CUT ON UPPER LEFT FOREARM Time Seen by Provider: 03/31/18 02:08 Source of Information: Reports: Patient History Limitations: Reports: No Limitations - History of Present Illness INITIAL COMMENTS - FREE TEXT/NARRATIVE: HISTORY AND PHYSICAL: History of present illness: 28-year-old female presenting emergent department with laceration to left forearm. Patient states that she was unloading dishes when her left forearm caught the corner of the metal furnace combination analyst rack resulting in a laceration to the anterior surface of her left forearm. She denies any foreign objects. She denies any loss of sensation strength or range of motion. Skin emergency department for further evaluation. States that she had a tetanus shot approximately 3 years ago with her last . She denies any other significant trauma. On examination there is a 6 on 1.5 cm laceration to the left anterior forearm. Review of systems: As per history of present illness and below otherwise all systems reviewed and negative. Past medical history: As per history of present illness and as reviewed below otherwise noncontributory. Surgical history: As per history of present illness and as reviewed below otherwise noncontributory. Social history: No reported history of drug or alcohol abuse. Family history: As per history of present illness and as reviewed below otherwise noncontributory. Physical exam: HEENT: Atraumatic, normocephalic, pupils reactive, negative for conjunctival pallor or scleral icterus, mucous membranes moist, throat clear, neck supple, nontender, trachea midline. Lungs: Clear to auscultation, breath sounds equal bilaterally, chest nontender. Heart: S1S2, regular, negative for clicks, rubs, or JVD. Abdomen: Soft, nondistended, nontender. Negative for masses or hepatosplenomegaly. Negative for costovertebral tenderness. Pelvis: Stable nontender. Genitourinary: Deferred. Rectal: Deferred. Extremities: Atraumatic, negative for cords or calf pain. Neurovascular unremarkable. Neuro: Awake, alert, oriented. Cranial nerves II through XII unremarkable. Cerebellum unremarkable. Motor and sensory unremarkable throughout. Exam nonfocal. Diagnostics: [] Therapeutics: 10 mL 1% lidocaine 7 vertical mattress sutures Ethilon Impression: Laceration Plan: Anagelsia was accomplished with 10 mL 1% lidocaine. Under normal sterile procedure 7 vertical mattress sutures were placed with 4-0 Ethilon stitch after wound was thoroughly examined. Patient tolerated procedure well. There were no complications. Patient was up-to-date on her tetanus. Secondary to increased risk of infection she was given a prescription for Bactrim and instructed to follow with primary care provider or return to emergency department for in 7-10 days for suture removal. She was instructed to keep the area clean and dry and watch for signs of infection including but not limited to increased swelling, redness, pain, or purulent discharge. Definitive disposition and diagnosis as appropriate pending reevaluation and review of above. left inner forearm Pain Score (Numeric/FACES): 4 - Related Data Allergies Allergy/AdvReac Type Severity Reaction Status Date / Time No Known Allergies Allergy Verified 03/31/18 02:00 Home Meds: Home Meds Gabapentin [Neurontin] 800 mg PO QID 10/20/17 [History] FLUoxetine [PROzac] 40 mg PO DAILY 03/30/18 [History] OLANZapine [Olanzapine] 10 mg PO DAILY 03/30/18 [History] oxyCODONE HCl/Acetaminophen [Oxycodone-Acetaminophen 5-325] 5 - 325 mg PO Q4HR PRN 03/30/18 [History] Past Medical History - Past Health History Medical/Surgical History: Denies Medical/Surgical History HEENT History: Reports: None Cardiovascular History: Reports: None Respiratory History: Reports: None Gastrointestinal History: Reports: None Genitourinary History: Reports: None 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: Musculoskeletal History: Reports: Fibromyalgia Other Musculoskeletal History: tendonitis Neurological History: Reports: Other (See Below) Other Neuro History: herniated disc Psychiatric History: Reports: ADHD, Anxiety, Bipolar, Depression, OCD Endocrine/Metabolic History: Reports: Hyperthyroidism Hematologic History: Reports: None Immunologic History: Reports: None Oncologic (Cancer) History: Reports: None Dermatologic History: Reports: None - Infectious Disease History Infectious Disease History: Reports: Chicken Pox - Past Surgical History Head Surgeries/Procedures: Reports: None HEENT Surgical History: Reports: None Cardiovascular Surgical History: Reports: None Respiratory Surgical History: Reports: None GI Surgical History: Reports: None Female Surgical History: Reports: Section Endocrine Surgical History: Reports: None Neurological Surgical History: Reports: None Musculoskeletal Surgical History: Reports: None Dermatological Surgical History: Reports: None Social & Family History - Family History Family Medical History: Noncontributory - Tobacco Use Smoking Status *Q: Current Every Day Smoker Years of Tobacco use: 8 Packs/Tins Daily: 1 - Caffeine Use Caffeine Use: Reports: Coffee, Energy Drinks, Soda - Recreational Drug Use Recreational Drug Use: No ED ROS GENERAL - Review of Systems Review Of Systems: ROS reveals no pertinent complaints other than HPI. ED EXAM, SKIN/RASH Exam: See Below Course - Vital Signs Last Recorded V/S: Last Vital Signs Temp 97.4 F 03/31/18 01:55 Pulse 102 H 03/31/18 01:55 Resp 17 03/31/18 01:55 BP 106/66 03/31/18 01:55 Pulse Ox 98 03/31/18 01:55 - Orders/Labs/Meds Meds: Medications Discontinued Medications Generic Name Dose Route Start Last Admin Trade Name [place] PRN Reason Stop Dose Admin Lidocaine HCl Confirm 03/31/18 01:56 03/31/18 02:52 Xylocaine-Mpf 1% Administered 03/31/18 01:57 Not Given Dose 10 mls @ as directed .ROUTE .STK-MED ONE Lidocaine HCl 10 ml 03/31/18 01:57 Xylocaine-Mpf 1% INJECT 03/31/18 01:58 ONETIME ONE Lidocaine HCl 5 ml 03/31/18 02:34 Xylocaine-Mpf 1% INJECT 03/31/18 02:35 ONETIME ONE Departure - Departure Time of Disposition: 03:07 Disposition: Home, Self-Care 01 Condition: Good Clinical Impression: Laceration of forearm Qualifiers: Encounter type: initial encounter Laterality: left Qualified Code(s): S51.812A - Laceration without foreign body of left forearm, initial encounter - Discharge Information Referrals: Talon Kumar MD [Primary Care Provider] - Forms: ED Department Discharge Additional Instructions: My general discharge The following information is given to patients seen in the emergency department who are being discharged to home. This information is to outline your options for follow-up care. We provide all patients seen in our emergency department with a follow-up referral. The need for follow-up, as well as the timing and circumstances, are variable depending upon the specifics of your emergency department visit. If you don't have a primary care physician on staff, we will provide you with a referral. We always advise you to contact your personal physician following an emergency department visit to inform them of the circumstance of the visit and for follow-up with them and/or the need for any referrals to a consulting specialist. The emergency department will also refer you to a specialist when appropriate. This referral assures that you have the opportunity for follow-up care with a specialist. All of these measure are taken in an effort to provide you with optimal care, which includes your follow-up. Under all circumstances we always encourage you to contact your private physician who remains a resource for coordinating your care. When calling for follow-up care, please make the office aware that this follow-up is from your recent emergency room visit. If for any reason you are refused follow-up, please contact the [facility] Emergency Department at and asked to speak to the emergency department charge nurse. [address] [address] Keep area clean and dry. Watch for signs of infection including but not limited to increased swelling, redness, pain, and purulent drainage. Take antibiotics as prescribed. Follow-up with primary care provider or emergency department in 7-10 days for suture removal.
[2018-03-31] MEDS ORDERED: Bacitracin Oint 1 GM U/D Packet TOP ONE (03:07)
== END 2018-03-31 03:15 | disposition home or self-care (01) ==
LOC: MW.ED 01:47
DX: S51.812A Laceration without foreign body of left forearm, initial encounter (principal); F17.210 Nicotine dependence, cigarettes, uncomplicated; F41.9 Anxiety disorder, unspecified; F32.9 Major depressive disorder, single episode, unspecified; Z79.899 Other long term (current) drug therapy; W22.8XXA Striking against or struck by other objects, initial encounter
CPT/HCPCS: 99282

== ENCOUNTER 2018-04-12 21:48 | Emergency (ER) | payer MEDICAID ==
[2018-04-12] MEDS ORDERED: Ketorolac 60 MG/2 ML SDV IM ONE (22:10)
--- NOTE | 2018-04-12 22:16 | EDM.PDOC ---
ED HPI GENERAL MEDICAL PROBLEM - General Chief Complaint: General Stated Complaint: STICHES OUT, LT SHOULD IN PAIN Time Seen by Provider: 04/12/18 22:01 - History of Present Illness INITIAL COMMENTS - FREE TEXT/NARRATIVE: HISTORY AND PHYSICAL: History of present illness: The patient is a 28-year-old female who is following with Dr. Glorai at [facility] and has chronic shoulder problems more on the left but bilateral, thoracic back pain and is on chronic gabapentin and intermittent muscle relaxers for that and has been seeing him for this and is scheduled for MRIs next week and who presents today saying that she is having persistent pain and would like something for pain for these chronic issues and she would like the sutures in her left forearm to be removed. The patient was seen here on March 31 due to a cut on her forearm that was sutured and she was placed on Bactrim. She said she presented to have the sutures removed last week on to her provider in the clinic and they thought it looked infected. She said that has since improved and would like evaluation for suture removal. She has no pain at her left forearm currently. She says that the pain that she is experiencing in her thoracic spine and bilateral shoulders is not new or different but she is out of her pain medications which include the muscle relaxer. She is not taking any chronic narcotics for this pain. The patient also is concerned about a yeasty-like discharge from her vagina that started after taking the Bactrim and would like something for her yeast infection. She has not contacted Dr. Gloria at the clinic to have a discussion about these chronic problems and the more acute problems but I've advised her to do so. She has no Complaints of systemic issues. Review of systems: As per history of present illness and below otherwise all systems reviewed and negative. Past medical history: As per history of present illness and as reviewed below otherwise noncontributory. Surgical history: As per history of present illness and as reviewed below otherwise noncontributory. Social history: No reported history of drug or alcohol abuse. Family history: As per history of present illness and as reviewed below otherwise noncontributory. Physical exam: General: Well-developed well-nourished female who is nontoxic and moving all extremities without difficulty. She and related into the ED without assistance. Vital signs are noted by me. HEENT: Atraumatic, normocephalic, negative for conjunctival pallor or scleral icterus, mucous membranes moist, throat clear, neck supple, nontender, trachea midline. Lungs: Clear to auscultation, breath sounds equal bilaterally, chest nontender. Heart: S1S2, regular rate and rhythm no overt murmurs Abdomen: Deferred Pelvis: Deferred Genitourinary: Deferred. Rectal: Deferred. Extremities: Atraumatic appearing with full range of motion without deficits or defects on evaluation and there is no gross bony tenderness at bilateral shoulders or thoracic spine., Neurovascular unremarkable. At the left forearm there is a horizontal wound which is well healed and sutures are intact. There is no erythema fluctuance or soft tissue swelling appreciated. Neuro: Awake, alert, oriented. Cranial nerves II through XII unremarkable. Cerebellum unremarkable. Motor and sensory unremarkable throughout. Exam nonfocal. Diagnostics: [] Therapeutics: Toradol Norflex suture removal per nursing I discussed with her that I would be willing to give her a dose of Toradol and Norflex here but that she would have to contact Dr. Gloria for further pain management as this is a chronic problem. I will give her 1 dose of Diflucan for her complaints of a yeast infection secondary to the Bactrim antibiotics that she has finished. We will remove the sutures and advised her to follow-up with her provider in the clinic. Impression: Suture removal left forearm, chronic bilateral shoulder and thoracic spine pain Definitive disposition and diagnosis as appropriate pending reevaluation and review of above. Left Shoulder Pain Score (Numeric/FACES): 8 - Related Data Allergies Allergy/AdvReac Type Severity Reaction Status Date / Time No Known Allergies Allergy Verified 04/12/18 22:03 Home Meds: Home Meds Gabapentin [Neurontin] 800 mg PO QID 10/20/17 [History] FLUoxetine [PROzac] 40 mg PO DAILY 03/30/18 [History] OLANZapine [Olanzapine] 10 mg PO DAILY 03/30/18 [History] oxyCODONE HCl/Acetaminophen [Oxycodone-Acetaminophen 5-325] 5 - 325 mg PO Q4HR PRN 03/30/18 [History] Past Medical History - Past Health History Medical/Surgical History: Denies Medical/Surgical History HEENT History: Reports: None Cardiovascular History: Reports: None Respiratory History: Reports: None Gastrointestinal History: Reports: None Genitourinary History: Reports: None 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: Musculoskeletal History: Reports: Fibromyalgia Other Musculoskeletal History: tendonitis Neurological History: Reports: Other (See Below) Other Neuro History: herniated disc Psychiatric History: Reports: ADHD, Anxiety, Bipolar, Depression, OCD Endocrine/Metabolic History: Reports: Hyperthyroidism Hematologic History: Reports: None Immunologic History: Reports: None Oncologic (Cancer) History: Reports: None Dermatologic History: Reports: None - Infectious Disease History Infectious Disease History: Reports: Chicken Pox - Past Surgical History Head Surgeries/Procedures: Reports: None HEENT Surgical History: Reports: None Cardiovascular Surgical History: Reports: None Respiratory Surgical History: Reports: None GI Surgical History: Reports: None Female Surgical History: Reports: Section Endocrine Surgical History: Reports: None Neurological Surgical History: Reports: None Musculoskeletal Surgical History: Reports: None Dermatological Surgical History: Reports: None Social & Family History - Family History Family Medical History: Noncontributory - Caffeine Use Caffeine Use: Reports: Coffee, Energy Drinks, Soda ED ROS GENERAL - Review of Systems Review Of Systems: ROS reveals no pertinent complaints other than HPI. ED EXAM, GENERAL - Physical Exam Exam: See Below (See dictation) Course - Vital Signs Last Recorded V/S: Last Vital Signs Temp 36.8 C 04/12/18 22:01 Pulse 102 H 04/12/18 22:01 Resp BP 112/68 04/12/18 22:01 Pulse Ox 100 04/12/18 22:01 - Orders/Labs/Meds Meds: Medications Discontinued Medications Generic Name Dose Route Start Last Admin Trade Name Freq PRN Reason Stop Dose Admin Ketorolac Tromethamine 60 mg 04/12/18 22:10 Toradol IM 04/12/18 22:11 ONETIME ONE Orphenadrine Citrate 60 mg 04/12/18 22:10 Norflex IM 04/12/18 22:11 ONETIME ONE Departure - Departure Time of Disposition: 22:15 Disposition: Home, Self-Care 01 Condition: Good Clinical Impression: Encounter for removal of sutures Chronic pain Qualifiers: Chronic pain type: other chronic pain Qualified Code(s): G89.29 - Other chronic pain - Discharge Information Referrals: PCP,None [Primary Care Provider] - Additional Instructions: The following information is given to patients seen in the emergency department who are being discharged to home. This information is to outline your options for follow-up care. We provide all patients seen in our emergency department with a follow-up referral. The need for follow-up, as well as the timing and circumstances, are variable depending upon the specifics of your emergency department visit. If you don't have a primary care physician on staff, we will provide you with a referral. We always advise you to contact your personal physician following an emergency department visit to inform them of the circumstance of the visit and for follow-up with them and/or the need for any referrals to a consulting specialist. The emergency department will also refer you to a specialist when appropriate. This referral assures that you have the opportunity for followup care with a specialist. All of these measure are taken in an effort to provide you with optimal care, which includes your followup. Under all circumstances we always encourage you to contact your private physician who remains a resource for coordinating your care. When calling for followup care, please make the office aware that this follow-up is from your recent emergency room visit. If for any reason you are refused follow-up, please contact the [facility] emergency department at and ask to speak to the emergency department charge nurse. [address] [place] [address] Please contact your provider at [facility] to have a dialogue and discussion about further pain management until you're able to get your MRI next week. Return to ER as needed as discussed
[2018-04-12 22:58] VITALS: BP 107/55
== END 2018-04-12 23:00 | disposition home or self-care (01) ==
LOC: MW.ED 21:48
DX: S51.812D Laceration without foreign body of left forearm, subsequent encounter (principal); G89.29 Other chronic pain; M25.511 Pain in right shoulder; M25.512 Pain in left shoulder; B37.3 Candidiasis of vulva and vagina; M54.6 Pain in thoracic spine; E05.90 Thyrotoxicosis, unspecified without thyrotoxic crisis or storm
CPT/HCPCS: 96372; 99282; J1885; J2360

== ENCOUNTER 2018-05-07 10:11 | Emergency (ER) | payer MEDICAID ==
[2018-05-07 10:29] VITALS: BP 95/63
[2018-05-07] MEDS ORDERED: Ketorolac 60 MG/2 ML SDV IM ONE (10:33)
--- NOTE | 2018-05-07 10:38 | EDM.PDOC ---
ED HPI GENERAL MEDICAL PROBLEM - General Chief Complaint: Upper Extremity Injury/Pain Stated Complaint: WRIST HURTS Time Seen by Provider: 05/07/18 10:33 Source of Information: Reports: Patient History Limitations: Reports: No Limitations - History of Present Illness INITIAL COMMENTS - FREE TEXT/NARRATIVE: HISTORY AND PHYSICAL: History of present illness: Patient is a 28-year-old female here with complaint of right wrist pain. She reports she has a history of this and told it was tendonitis. She states she also has fibromyaglia, she takes oxycodone as needed at home. She states her wrist has been hurting for the past 4 days but worse today. She states she called her provider at [facility] and was unable to get in and was told to come to the ED for her usual treatment which is IM toradol. She denies any injury, fevers, chills and is otherwise in her usual state of health. 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 Review of systems: As per history of present illness and below otherwise all systems reviewed and negative. Past medical history: As per history of present illness and as reviewed below otherwise noncontributory. Surgical history: As per history of present illness and as reviewed below otherwise noncontributory. Social history: No reported history of drug or alcohol abuse. Family history: As per history of present illness and as reviewed below otherwise noncontributory. Physical exam: General: Patient sitting comfortably in no acute distress and nontoxic appearing HEENT: Atraumatic, normocephalic, pupils reactive, negative for conjunctival pallor or scleral icterus, mucous membranes moist, throat clear, neck supple, nontender, trachea midline. No meningeal signs. Lungs: Clear to auscultation, breath sounds equal bilaterally, chest nontender. Heart: S1S2, regular, negative for clicks, rubs, or overt murmur. Extremities: Pain to palpation of the ulnar aspect of the right wrist. No erythema, warm, swelling, or obvious deformity. Atraumatic, negative for cords or calf pain. Neurovascular unremarkable. Neuro: Awake, alert, oriented. Cranial nerves II through XII unremarkable. Cerebellum unremarkable. Motor and sensory unremarkable throughout. Exam nonfocal. Notes: Discussed with patient that Toradol is an NSAID and can be hard on her kidneys and advised to have her kidney function checked with her PCP. Diagnostics: None Therapeutics: Toradol 60mg IM Prescriptions: None Impression: Right wrist pain Plan: 1. Ice, motrin and tylenol as needed 2. Follow up with primary care provider. 3. Return to ED as needed as discussed Definitive disposition and diagnosis as appropriate pending reevaluation and review of above. 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: Musculoskeletal History: Reports: Fibromyalgia Other Musculoskeletal History: tendonitis Neurological History: Reports: Other (See Below) Other Neuro History: herniated disc Psychiatric History: Reports: ADHD, Anxiety, Bipolar, Depression, OCD Endocrine/Metabolic History: Reports: Hyperthyroidism Hematologic History: Reports: None Immunologic History: Reports: None Oncologic (Cancer) History: Reports: None Dermatologic History: Reports: None - Infectious Disease History Infectious Disease History: Reports: Chicken Pox - Past Surgical History Head Surgeries/Procedures: Reports: None HEENT Surgical History: Reports: None Cardiovascular Surgical History: Reports: None Respiratory Surgical History: Reports: None GI Surgical History: Reports: None Female Surgical History: Reports: Section Endocrine Surgical History: Reports: None Neurological Surgical History: Reports: None Musculoskeletal Surgical History: Reports: None Dermatological Surgical History: Reports: None Social & Family History - Family History Family Medical History: Noncontributory - Caffeine Use Caffeine Use: Reports: Coffee, Energy Drinks, Soda Review of Systems - Review of Systems Review Of Systems: ROS reveals no pertinent complaints other than HPI. ED EXAM, GENERAL - Physical Exam Exam: See Below (see dictation) Course - Vital Signs Last Recorded V/S: Last Vital Signs Temp 36.4 C 05/07/18 10:26 Pulse 102 H 05/07/18 10:26 Resp 18 10/05/18 10:26 BP 95/63 05/07/18 10:26 Pulse Ox 97 05/07/18 10:26 Departure - Departure Time of Disposition: 10:38 Disposition: Home, Self-Care 01 Condition: Good Clinical Impression: Right wrist pain - Discharge Information Referrals: PCP,None [Primary Care Provider] - Additional Instructions: The following information is given to patients seen in the emergency department who are being discharged to home. This information is to outline your options for follow-up care. We provide all patients seen in our emergency department with a follow-up referral. The need for follow-up, as well as the timing and circumstances, are variable depending upon the specifics of your emergency department visit. If you don't have a primary care physician on staff, we will provide you with a referral. We always advise you to contact your personal physician following an emergency department visit to inform them of the circumstance of the visit and for follow-up with them and/or the need for any referrals to a consulting specialist. The emergency department will also refer you to a specialist when appropriate. This referral assures that you have the opportunity for follow-up care with a specialist. All of these measure are taken in an effort to provide you with optimal care, which includes your follow-up. Under all circumstances we always encourage you to contact your private physician who remains a resource for coordinating your care. When calling for follow-up care, please make the office aware that this follow-up is from your recent emergency room visit. If for any reason you are refused follow-up, please contact the [facility] Emergency Department at and asked to speak to the emergency department charge nurse. [address] [address] 1. Ice, motrin and tylenol as needed 2. Follow up with primary care provider. 3. Return to ED as needed as discussed
== END 2018-05-07 10:54 | disposition home or self-care (01) ==
LOC: MW.ED 10:11
DX: M25.531 Pain in right wrist (principal)
CPT/HCPCS: 96372; 99283; J1885; 99282

== ENCOUNTER 2018-09-04 22:10 | Emergency (ER) | payer MEDICAID, OTHER ==
--- NOTE | 2018-09-04 22:25 | EDM.PDOC ---
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 Past medical history: As per history of present illness and as reviewed below otherwise noncontributory. Surgical history: As per history of present illness and as reviewed below otherwise noncontributory. Social history: No reported history of drug or alcohol abuse. Family history: As per history of present illness and as reviewed below otherwise noncontributory. Physical exam: HEENT: Atraumatic, normocephalic, pupils reactive, negative for conjunctival pallor or scleral icterus, mucous membranes moist, throat clear, neck supple, nontender, trachea midline. contusion on occiput Lungs: Clear to auscultation, breath sounds equal bilaterally, chest nontender. Heart: S1S2, regular, negative for clicks, rubs, or JVD. Abdomen: Soft, nondistended, nontender. Negative for masses or hepatosplenomegaly. Negative for costovertebral tenderness. Pelvis: Stable nontender. Genitourinary: Deferred. Rectal: Deferred. Extremities: Atraumatic, negative for cords or calf pain. Neurovascular unremarkable. Neuro: Awake, alert, oriented. Cranial nerves II through XII unremarkable. Cerebellum unremarkable. Motor and sensory unremarkable throughout. Exam nonfocal. Diagnostics: [Head CT no contrast ] Therapeutics: [] Toradol 60 IM Rest ice ibuprofen Zofran Impression: concussion Definitive disposition and diagnosis as appropriate pending reevaluation and review of above. Posterior Head Pain Score (Numeric/FACES): 6 - Related Data Allergies Allergy/AdvReac Type Severity Reaction Status Date / Time No Known Allergies Allergy Verified 09/04/18 22:21 Home Meds: Home Meds Gabapentin [Neurontin] 800 mg PO QID 10/20/17 [History] DULoxetine [Cymbalta] 2 cap PO BID 06/16/18 [History] DULoxetine [Cymbalta] 60 mg PO DAILY 09/04/18 [History] Diclofenac Sodium [Voltaren 1%] 100 gm .XX DAILY 09/04/18 [History] Indomethacin 50 mg PO DAILY 09/04/18 [History] Lurasidone HCl [Latuda] 40 mg PO DAILY 09/04/18 [History] Support Breast 1 dose PO BID 09/04/18 [History] Varenicline Tartrate [Chantix] 1 mg PO DAILY 09/04/18 [History] cloNIDine HCl [Catapres] 0.2 mg PO DAILY 09/04/18 [History] lamoTRIgine [Lamotrigine] 25 mg PO DAILY 09/04/18 [History] risperiDONE 2 mg PO DAILY 09/04/18 [History] Past Medical History - Past Health History Medical/Surgical History: Denies Medical/Surgical History HEENT History: Reports: None Cardiovascular History: Reports: None Respiratory History: Reports: None Gastrointestinal History: Reports: None Genitourinary History: Reports: None 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: Musculoskeletal History: Reports: Fibromyalgia Other Musculoskeletal History: tendonitis Neurological History: Reports: Other (See Below) Other Neuro History: herniated disc Psychiatric History: Reports: ADHD, Anxiety, Bipolar, Depression, OCD Endocrine/Metabolic History: Reports: Hyperthyroidism Hematologic History: Reports: None Immunologic History: Reports: None Oncologic (Cancer) History: Reports: None Dermatologic History: Reports: None - Infectious Disease History Infectious Disease History: Reports: None - Past Surgical History Head Surgeries/Procedures: Reports: None HEENT Surgical History: Reports: None Cardiovascular Surgical History: Reports: None Respiratory Surgical History: Reports: None GI Surgical History: Reports: None Female Surgical History: Reports: Section Endocrine Surgical History: Reports: None Neurological Surgical History: Reports: None Musculoskeletal Surgical History: Reports: None Dermatological Surgical History: Reports: None Social & Family History - Family History Family Medical History: Noncontributory - Caffeine Use Caffeine Use: Reports: Coffee ED ROS GENERAL - Review of Systems Review Of Systems: See Below ED EXAM, HEAD INJURY - Physical Exam Exam: See Below Course - Vital Signs Last Recorded V/S: Last Vital Signs Temp 97.4 F 09/04/18 22:19 Pulse 71 09/04/18 22:19 Resp 18 09/04/18 22:19 BP 117/71 09/04/18 22:19 Pulse Ox 99 09/04/18 22:19 - Orders/Labs/Meds Orders: Active Orders 24 hr Category Date Time Status Head wo Cont [CT] Stat Exams 09/04/18 22:25 Taken Departure - Departure Time of Disposition: 23:16 Disposition: Home, Self-Care 01 Condition: Good Clinical Impression: Concussion - Discharge Information Referrals: Talon Kumar MD [Primary Care Provider] - Forms: ED Department Discharge Additional Instructions: The following information is given to patients seen in the emergency department who are being discharged to home. This information is to outline your options for follow-up care. We provide all patients seen in our emergency department with a follow-up referral. The need for follow-up, as well as the timing and circumstances, are variable depending upon the specifics of your emergency department visit. If you don't have a primary care physician on staff, we will provide you with a referral. We always advise you to contact your personal physician following an emergency department visit to inform them of the circumstance of the visit and for follow-up with them and/or the need for any referrals to a consulting specialist. The emergency department will also refer you to a specialist when appropriate. This referral assures that you have the opportunity for follow-up care with a specialist. All of these measure are taken in an effort to provide you with optimal care, which includes your follow-up. Under all circumstances we always encourage you to contact your private physician who remains a resource for coordinating your care. When calling for follow-up care, please make the office aware that this follow-up is from your recent emergency room visit. If for any reason you are refused follow-up, please contact the [facility] emergency department at and asked to speak to the emergency department charge nurse. - My Orders Last 24 Hours: My Active Orders 09/04/18 22:25 Head wo Cont [CT] Stat - Assessment/Plan Last 24 Hours: My Active Orders 09/04/18 22:25 Head wo Cont [CT] Stat
--- NOTE | 2018-09-04 23:13 | CT ---
INDICATION: Fall. Headache TECHNIQUE: CT head without contrast. COMPARISON: 05/11/2018 FINDINGS: The ventricles and sulci are stable. There is no mass effect or midline shift. There is no loss of cade-white differentiation. There is no evidence of an acute intracranial hemorrhage. No acute calvarial fracture is seen. Mild paranasal sinus mucosal thickening is noted. The mastoid air cells are clear. The visualized orbits are within normal limits. IMPRESSION: No evidence of an acute intracranial hemorrhage, mass effect or loss of cade-white differentiation. Dictated by Dennis Meng MD @ 09/04/2018 11:12:50 PM Please note that all CT scans at this facility use dose modulation, iterative reconstruction, and/or weight-based dosing when appropriate to reduce radiation dose to as low as reasonably achievable. Dictated by: Dennis Meng MD @ 09/04/2018 23:12:56 (Electronically Signed)
[2018-09-04] MEDS ORDERED: Ketorolac 60 MG/2 ML SDV IM ONE (23:17)
[2018-09-04 23:29] VITALS: BP 111/70
== END 2018-09-04 23:30 | disposition home or self-care (01) ==
LOC: MW.ED 22:10
DX: S06.0X0A Concussion without loss of consciousness, initial encounter (principal); W00.0XXA Fall on same level due to ice and snow, initial encounter; Z79.899 Other long term (current) drug therapy; Y99.0 Civilian activity done for income or pay
CPT/HCPCS: 70450; 96372; 99283; J1885

== ENCOUNTER 2018-09-06 17:22 | Emergency (ER) | payer OTHER ==
--- NOTE | 2018-09-06 17:52 | EDM.PDOC ---
ED HPI GENERAL MEDICAL PROBLEM - General Chief Complaint: Neck Problem Stated Complaint: NECK PAIN Time Seen by Provider: 09/06/18 17:43 - History of Present Illness INITIAL COMMENTS - FREE TEXT/NARRATIVE: HISTORY AND PHYSICAL: History of present illness: The patient is a 28-year-old female who was seen here 2 days ago after a slip and fall impacting the right side of her head for which she had a CT scan of the head and now presents with complaints of pain to the left side of her neck. She is not sure if she twisted funny when she fell down but she is having exquisite pain in the left neck area and points to her sternocleidomastoid as the site of the most pain. The patient has a scheduled spinal surgery on her cervical spine in 4 ago on September 17 for an unrelated problem and has no midline back or neck pain. She says the pain in her anterior neck extends into her shoulder or trapezius area and she's been using ice and heat to the areas. She is only been using acetaminophen as she is not allowed to take any ibuprofen or nonsteroidals with her upcoming surgery. The patient has no neurosensory changes or weakness in her upper extremities and no other systemic complaints. She is concerned about the discomfort and would like something for that and she is also here because her work recommended that she come here for a repeat visit in order to get this information on her medical record for future Workmen's Comp. issues. Review of systems: As per history of present illness and below otherwise all systems reviewed and negative. Past medical history: As per history of present illness and as reviewed below otherwise noncontributory. Surgical history: As per history of present illness and as reviewed below otherwise noncontributory. Social history: No reported history of drug or alcohol abuse. Family history: As per history of present illness and as reviewed below otherwise noncontributory. Physical exam: General: Well-developed well-nourished female who is nontoxic and is slow to move her head side to side discomfort. Vital signs are noted by me HEENT: Atraumatic, normocephalic, pupils reactive, negative for conjunctival pallor or scleral icterus, mucous membranes moist, throat clear, neck supple, nontender, trachea midline. Is no cervical adenopathy and no thyromegaly. There is no midline cervical spine pain and no step-offs or defects of the cervical spine is appreciated. She has some minimal spasm in her trapezius on the left and there is exquisite tenderness and some mild soft tissue swelling of the sternocleidomastoid on the left. When I palpate this muscle area she says that is exactly replicating her pain. When she turns her head side to side she has pain more when she looks to the left. She is speaking clearly and easily and has no difficulty swallowing. Lungs: Clear to auscultation, breath sounds equal bilaterally, chest nontender. Heart: S1S2, regular, rate and rhythm no overt murmurs Abdomen: Soft, nondistended, nontender.. Pelvis: Stable nontender. Genitourinary: Deferred. Rectal: Deferred. Extremities: Atraumatic, full range of motion without defects or deficits. Neurovascular unremarkable. Neuro: Awake, alert, oriented. Cranial nerves II through XII unremarkable. Cerebellum unremarkable. Motor and sensory unremarkable throughout. Exam nonfocal. Diagnostics: Therapeutics: She drove herself here and cannot receive Toradol for the above reasons in history of present illness I discussed with the patient that I could give her some tramadol and some muscle relaxers and have advised her not to use heat to the area. She says that she spoke with her physician in [place] and they could not see her prior to her preop appointment and they recommended that she come here. Impression: Left musculoskeletal neck pain/SCM strain and contusion Definitive disposition and diagnosis as appropriate pending reevaluation and review of above. Left Neck Pain Score (Numeric/FACES): 7 - Related Data Allergies Allergy/AdvReac Type Severity Reaction Status Date / Time No Known Allergies Allergy Verified 09/06/18 17:33 Home Meds: Home Meds Gabapentin [Neurontin] 800 mg PO QID 10/20/17 [History] DULoxetine [Cymbalta] 2 cap PO BID 06/16/18 [History] DULoxetine [Cymbalta] 60 mg PO DAILY 09/04/18 [History] Diclofenac Sodium [Voltaren 1%] 100 gm .XX DAILY 09/04/18 [History] Indomethacin 50 mg PO DAILY 09/04/18 [History] Lurasidone HCl [Latuda] 40 mg PO DAILY 09/04/18 [History] Support Breast 1 dose PO BID 09/04/18 [History] Varenicline Tartrate [Chantix] 1 mg PO DAILY 09/04/18 [History] cloNIDine HCl [Catapres] 0.2 mg PO DAILY 09/04/18 [History] lamoTRIgine [Lamotrigine] 25 mg PO DAILY 09/04/18 [History] risperiDONE 2 mg PO DAILY 09/04/18 [History] Past Medical History - Past Health History Medical/Surgical History: Denies Medical/Surgical History HEENT History: Reports: None Cardiovascular History: Reports: None Respiratory History: Reports: None Gastrointestinal History: Reports: None Genitourinary History: Reports: None 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: Musculoskeletal History: Reports: Fibromyalgia Other Musculoskeletal History: tendonitis Neurological History: Reports: Concussion, Other (See Below) Other Neuro History: herniated disc Psychiatric History: Reports: ADHD, Anxiety, Bipolar, Depression, OCD Endocrine/Metabolic History: Reports: Hyperthyroidism Hematologic History: Reports: None Immunologic History: Reports: None Oncologic (Cancer) History: Reports: None Dermatologic History: Reports: None - Infectious Disease History Infectious Disease History: Reports: None - Past Surgical History Head Surgeries/Procedures: Reports: None HEENT Surgical History: Reports: None Cardiovascular Surgical History: Reports: None Respiratory Surgical History: Reports: None GI Surgical History: Reports: None Female Surgical History: Reports: Section Endocrine Surgical History: Reports: None Neurological Surgical History: Reports: None Musculoskeletal Surgical History: Reports: None Dermatological Surgical History: Reports: None Social & Family History - Family History Family Medical History: Noncontributory - Tobacco Use Smoking Status *Q: Never Smoker - Caffeine Use Caffeine Use: Reports: Coffee - Recreational Drug Use Recreational Drug Use: No ED ROS GENERAL - Review of Systems Review Of Systems: ROS reveals no pertinent complaints other than HPI. ED EXAM, GENERAL - Physical Exam Exam: See Below (See dictation) Course - Vital Signs Last Recorded V/S: Last Vital Signs Temp 35.6 C 09/06/18 17:31 Pulse 71 09/06/18 17:31 Resp 18 09/06/18 17:31 BP 100/51 L 09/06/18 17:31 Pulse Ox 99 09/06/18 17:31 Departure - Departure Time of Disposition: 17:57 Disposition: Home, Self-Care 01 Condition: Good Clinical Impression: Musculoskeletal pain Neck muscle strain Qualifiers: Encounter type: subsequent encounter Qualified Code(s): S16.1XXD - Strain of muscle, fascia and tendon at neck level, subsequent encounter - Discharge Information Referrals: PCP,Unknown [Primary Care Provider] - Forms: ED Department Discharge Additional Instructions: The following information is given to patients seen in the emergency department who are being discharged to home. This information is to outline your options for follow-up care. We provide all patients seen in our emergency department with a follow-up referral. The need for follow-up, as well as the timing and circumstances, are variable depending upon the specifics of your emergency department visit. If you don't have a primary care physician on staff, we will provide you with a referral. We always advise you to contact your personal physician following an emergency department visit to inform them of the circumstance of the visit and for follow-up with them and/or the need for any referrals to a consulting specialist. The emergency department will also refer you to a specialist when appropriate. This referral assures that you have the opportunity for followup care with a specialist. All of these measure are taken in an effort to provide you with optimal care, which includes your followup. Under all circumstances we always encourage you to contact your private physician who remains a resource for coordinating your care. When calling for followup care, please make the office aware that this follow-up is from your recent emergency room visit. If for any reason you are refused follow-up, please contact the [facility] emergency department at and ask to speak to the emergency department charge nurse. [facility] Primary care- Internal Medicine and Family [address] [address] Please use ice to area for the next several days and avoid heat as it will cause more inflammation and swelling. Please use medications as needed and prescribed and contact your provider or one of ours for follow-up care. Try to slowly range of motion the area to keep the muscles and even though they're painful to move. Return to ER as needed and as discussed
[2018-09-06] MEDS ORDERED: Ketorolac 60 MG/2 ML SDV IM ONE (18:13)
[2018-09-06 18:40] VITALS: BP 94/53
== END 2018-09-06 18:36 | disposition home or self-care (01) ==
LOC: MW.ED 17:22
DX: S16.1XXD Strain of muscle, fascia and tendon at neck level, subsequent encounter (principal); Z79.899 Other long term (current) drug therapy; X58.XXXD Exposure to other specified factors, subsequent encounter
CPT/HCPCS: 99282; J1885

== ENCOUNTER 2018-09-19 19:09 | Emergency (ER) | payer MEDICAID, OTHER ==
--- NOTE | 2018-09-19 19:50 | EDM.PDOC ---
ED HPI GENERAL MEDICAL PROBLEM - General Chief Complaint: Genitourinary Problem Stated Complaint: UNABLE TO GO TO THE BATHROOM Time Seen by Provider: 09/19/18 19:35 Source of Information: Reports: Patient History Limitations: Reports: No Limitations - History of Present Illness INITIAL COMMENTS - FREE TEXT/NARRATIVE: HISTORY AND PHYSICAL: History of present illness: Patient is a 28-year-old female who presents to the emergency room with complaints of urinary retention. Patient had a cervical spine fusion at [place] by Dr. Alicea, 2 days prior. She states after surgery she did void a small amount but since returning home this morning she has not been able to void. She has discomfort to the low pelvic area states she feels "full". She denies any recent injury, trauma or falls since her surgery. She denies any numbness or tingling to her distal extremities. Denies any urinary or fecal incontinence. She is ambulatory without any difficulty or deficits. Review of systems: As per history of present illness and below otherwise all systems reviewed and negative. Past medical history: As per history of present illness and as reviewed below otherwise noncontributory. Surgical history: As per history of present illness and as reviewed below otherwise noncontributory. Social history: See social history for further information Family history: As per history of present illness and as reviewed below otherwise noncontributory. Physical exam: General: Well-developed and well-nourished 28-year-old female. Alert and oriented. Nontoxic appearing and in no acute distress. HEENT: Wearing a hard neck brace (d/t post surgery healing precautions), SEE SKIN for details, normocephalic, pupils equal and reactive bilaterally, negative for conjunctival pallor or scleral icterus, mucous membranes moist, TMs normal bilaterally, throat clear, neck supple, nontender, trachea midline. No drooling or trismus noted. No meningeal signs. No hot potato voice noted. Lungs: Clear to auscultation, breath sounds equal bilaterally, chest nontender. Heart: S1S2, regular rate and rhythm without overt murmur Abdomen: Soft, nondistended, nontender. Negative for masses or hepatosplenomegaly. Negative for costovertebral tenderness. Pelvis: Stable nontender. Genitourinary: Deferred. Rectal: Deferred. Skin: Midline anterior surgical incision which appears to be healing well. No surrounding erythema or soft tissue swelling. Otherwise skin is intact, warm, dry. No lesions or rashes noted. Extremities: Atraumatic, moves all per self, negative for cords or calf pain. Neurovascular unremarkable. Neuro: Awake, alert, oriented. Cranial nerves II through XII unremarkable. Cerebellum unremarkable. Motor and sensory unremarkable throughout. Exam nonfocal. Notes: Neurological assessment is unremarkable. Bladder scanner was done after patient attempted to void, she was unsuccessful. Bladder scanner measures 639ml. Patient is distended and mildly tender with palpation. She is agreeable to straight catheterizing for urine sample and bladder relief. Lab work is unremarkable. She does not have a bladder infection. We discussed acute urinary retention and I did offer to have her go home with the Moon catheter/leg bag. She states that it is very uncomfortable and would prefer to have it removed and try to void on her own at home. She mentions concerned that she has not had a bowel movement since before her surgery and is wondering if we would be able to do a fleets enema while she is here. She states she is unable to do this herself due to the neck brace and her discomfort of performing it. We will give her one fleets enema while here. If she is unable to void in the morning she will need to return to the emergency room or follow- up with the urologist. Supportive care measures were reviewed and discussed. Voices understanding and is agreeable to plan of care. Denies any further questions or concerns at this time. Diagnostics: CBC, CMP, UA, HCGU Therapeutics: Fleets Enema, Pyridium Impression: Acute Urinary Retention Plan: 1. Drink fluids per your usual. If you are unable to urinate in the morning he' ll need to follow-up with the urologist or return to the emergency room. 2. Please add MiraLAX to your regimen until you're bowel movements are regular. 3. Please inform your surgeon of your emergency room visit this weekend, may need to be evaluated sooner by them. Please see urology on Thursday. Return to the ED as needed and as discussed. Definitive disposition and diagnosis as appropriate pending reevaluation and review of above. 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 Pain Score (Numeric/FACES): 3 - Related Data Allergies Allergy/AdvReac Type Severity Reaction Status Date / Time hydrocodone Allergy Itching Verified 09/19/18 19:20 Home Meds: Home Meds Gabapentin [Neurontin] 800 mg PO QID 10/20/17 [History] DULoxetine [Cymbalta] 2 cap PO BID 06/16/18 [History] DULoxetine [Cymbalta] 60 mg PO DAILY 09/04/18 [History] Diclofenac Sodium [Voltaren 1%] 100 gm .XX DAILY 09/04/18 [History] Indomethacin 50 mg PO DAILY 09/04/18 [History] Lurasidone HCl [Latuda] 40 mg PO DAILY 09/04/18 [History] Support Breast 1 dose PO BID 09/04/18 [History] Varenicline Tartrate [Chantix] 1 mg PO DAILY 09/04/18 [History] cloNIDine HCl [Catapres] 0.2 mg PO DAILY 09/04/18 [History] lamoTRIgine [Lamotrigine] 25 mg PO DAILY 09/04/18 [History] risperiDONE 2 mg PO DAILY 09/04/18 [History] Past Medical History - Past Health History Medical/Surgical History: Denies Medical/Surgical History HEENT History: Reports: None Cardiovascular History: Reports: None Respiratory History: Reports: None Gastrointestinal History: Reports: None Genitourinary History: Reports: None 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: Musculoskeletal History: Reports: Fibromyalgia, Other (See Below) Other Musculoskeletal History: tendonitis; cervical herniated disck Neurological History: Reports: Concussion, Other (See Below) Other Neuro History: herniated disc Psychiatric History: Reports: ADHD, Anxiety, Bipolar, Depression, OCD Endocrine/Metabolic History: Reports: Hyperthyroidism Hematologic History: Reports: None Immunologic History: Reports: None Oncologic (Cancer) History: Reports: None Dermatologic History: Reports: None - Infectious Disease History Infectious Disease History: Reports: None - Past Surgical History Head Surgeries/Procedures: Reports: None HEENT Surgical History: Reports: None Cardiovascular Surgical History: Reports: None Respiratory Surgical History: Reports: None GI Surgical History: Reports: None Female Surgical History: Reports: Section Endocrine Surgical History: Reports: None Neurological Surgical History: Reports: None Musculoskeletal Surgical History: Reports: None Dermatological Surgical History: Reports: None Social & Family History - Family History Family Medical History: Noncontributory - Tobacco Use Smoking Status *Q: Never Smoker - Caffeine Use Caffeine Use: Reports: Coffee - Recreational Drug Use Recreational Drug Use: No ED ROS GENERAL - Review of Systems Review Of Systems: ROS reveals no pertinent complaints other than HPI. ED EXAM, RENAL/ - Physical Exam Exam: See Below (See dictation) Course - Vital Signs Last Recorded V/S: Last Vital Signs Temp 96.5 F 09/19/18 19:09 Pulse 91 09/19/18 19:09 Resp 16 09/19/18 19:09 BP 103/57 L 09/19/18 19:09 Pulse Ox 98 09/19/18 19:09 - Orders/Labs/Meds Orders: Active Orders 24 hr Category Date Time Status Communication Order [RC] STAT Care 09/19/18 19:34 Active Communication Order [RC] STAT Care 09/19/18 20:34 Active Labs: Laboratory Tests 09/19/18 09/19/18 09/19/18 Range/Units 19:47 19:47 20:05 WBC 9.27 (4.0-11.0) K/uL RBC 3.94 L (4.30-5.90) M/uL Hgb 12.2 (12.0-16.0) g/dL Hct 35.6 L (36.0-46.0) % MCV 90.4 (80.0-98.0) fL MCH 31.0 (27.0-32.0) pg MCHC 34.3 (31.0-37.0) g/dL RDW Std Deviation 41.5 (28.0-62.0) fl RDW Coeff of Alex 13 (11.0-15.0) % Plt Count 188 (150-400) K/uL MPV 9.10 (7.40-12.00) fL Neut % (Auto) 64.2 (48.0-80.0) % Lymph % (Auto) 19.2 (16.0-40.0) % Denali % (Auto) 14.5 (0.0-15.0) % Eos % (Auto) 2.0 (0.0-7.0) % Baso % (Auto) 0.1 (0.0-1.5) % Neut # (Auto) 6.0 H (1.4-5.7) K/uL Lymph # (Auto) 1.8 (0.6-2.4) K/uL Denali # (Auto) 1.3 H (0.0-0.8) K/uL Eos # (Auto) 0.2 (0.0-0.7) K/uL Baso # (Auto) 0.0 (0.0-0.1) K/uL Nucleated RBC % 0.0 /100WBC Nucleated RBCs # 0 K/uL Sodium 135 L (136-145) mmol/L Potassium 4.2 (3.5-5.1) mmol/L Chloride 102 (98-107) mmol/L Carbon Dioxide 25.4 (21.0-32.0) mmol/L BUN 13 (7.0-18.0) mg/dL Creatinine 0.9 (0.6-1.0) mg/dL Est Cr Clr Drug Dosing TNP Estimated GFR (MDRD) > 60.0 ml/min Glucose 122 H (74-106) mg/dL Calcium 9.3 (8.5-10.1) mg/dL Total Bilirubin 0.3 (0.2-1.0) mg/dL AST 16 (15-37) IU/L ALT 15 (14-63) IU/L Alkaline Phosphatase 52 (46-116) U/L Total Protein 7.1 (6.4-8.2) g/dL Albumin 3.6 (3.4-5.0) g/dL Globulin 3.5 (2.6-4.0) g/dL Albumin/Globulin Ratio 1.0 (0.9-1.6) Urine Color YELLOW Urine Appearance CLEAR Urine pH 6.5 (5.0-8.0) Ur Specific Gile <= 1.005 (1.001-1.035) Urine Protein NEGATIVE (NEGATIVE) mg/dL Urine Glucose (UA) NEGATIVE (NEGATIVE) mg/dL Urine Ketones NEGATIVE (NEGATIVE) mg/dL Urine Occult Blood NEGATIVE (NEGATIVE) Urine Nitrite NEGATIVE (NEGATIVE) Urine Bilirubin NEGATIVE (NEGATIVE) Urine Urobilinogen 0.2 (<2.0) EU/dL Ur Leukocyte Esterase NEGATIVE (NEGATIVE) Urine HCG, Qual (NEGATIVE) 09/19/18 Range/Units 20:05 WBC (4.0-11.0) K/uL RBC (4.30-5.90) M/uL Hgb (12.0-16.0) g/dL Hct (36.0-46.0) % MCV (80.0-98.0) fL MCH (27.0-32.0) pg MCHC (31.0-37.0) g/dL RDW Std Deviation (28.0-62.0) fl RDW Coeff of Alex (11.0-15.0) % Plt Count (150-400) K/uL MPV (7.40-12.00) fL Neut % (Auto) (48.0-80.0) % Lymph % (Auto) (16.0-40.0) % Denali % (Auto) (0.0-15.0) % Eos % (Auto) (0.0-7.0) % Baso % (Auto) (0.0-1.5) % Neut # (Auto) (1.4-5.7) K/uL Lymph # (Auto) (0.6-2.4) K/uL Denali # (Auto) (0.0-0.8) K/uL Eos # (Auto) (0.0-0.7) K/uL Baso # (Auto) (0.0-0.1) K/uL Nucleated RBC % /100WBC Nucleated RBCs # K/uL Sodium (136-145) mmol/L Potassium (3.5-5.1) mmol/L Chloride (98-107) mmol/L Carbon Dioxide (21.0-32.0) mmol/L BUN (7.0-18.0) mg/dL Creatinine (0.6-1.0) mg/dL Est Cr Clr Drug Dosing Estimated GFR (MDRD) ml/min Glucose (74-106) mg/dL Calcium (8.5-10.1) mg/dL Total Bilirubin (0.2-1.0) mg/dL AST (15-37) IU/L ALT (14-63) IU/L Alkaline Phosphatase (46-116) U/L Total Protein (6.4-8.2) g/dL Albumin (3.4-5.0) g/dL Globulin (2.6-4.0) g/dL Albumin/Globulin Ratio (0.9-1.6) Urine Color Urine Appearance Urine pH (5.0-8.0) Ur Specific Gile (1.001-1.035) Urine Protein (NEGATIVE) mg/dL Urine Glucose (UA) (NEGATIVE) mg/dL Urine Ketones (NEGATIVE) mg/dL Urine Occult Blood (NEGATIVE) Urine Nitrite (NEGATIVE) Urine Bilirubin (NEGATIVE) Urine Urobilinogen (<2.0) EU/dL Ur Leukocyte Esterase (NEGATIVE) Urine HCG, Qual NEGATIVE (NEGATIVE) Departure - Departure Time of Disposition: 20:38 Disposition: Home, Self-Care 01 Clinical Impression: Acute urinary retention - Discharge Information Instructions: Acute Urinary Retention, Female, [id number] Referrals: PCP,Unknown [Primary Care Provider] - Forms: ED Department Discharge Additional Instructions: The following information is given to patients seen in the emergency department who are being discharged to home. This information is to outline your options for follow-up care. We provide all patients seen in our emergency department with a follow-up referral. The need for follow-up, as well as the timing and circumstances, are variable depending upon the specifics of your emergency department visit. If you don't have a primary care physician on staff, we will provide you with a referral. We always advise you to contact your personal physician following an emergency department visit to inform them of the circumstance of the visit and for follow-up with them and/or the need for any referrals to a consulting specialist. The emergency department will also refer you to a specialist when appropriate. This referral assures that you have the opportunity for follow-up care with a specialist. All of these measure are taken in an effort to provide you with optimal care, which includes your follow-up. Under all circumstances we always encourage you to contact your private physician who remains a resource for coordinating your care. When calling for follow-up care, please make the office aware that this follow-up is from your recent emergency room visit. If for any reason you are refused follow-up, please contact the [facility] Emergency Department at and asked to speak to the emergency department charge nurse. [facility] [address] [place] [id number] [facility] [address] [place] [id number] [facility] Specialty Care - Neurology Professional Building [address] [place] [address], [address] [place] [address] 1. Drink fluids per your usual. If you are unable to urinate in the morning he' ll need to follow-up with the urologist or return to the emergency room. 2. Please add MiraLAX to your regimen until you're bowel movements are regular. 3. Please inform your surgeon of your emergency room visit this weekend, may need to be evaluated sooner by them. Please see urology on Thursday. Return to the ED as needed and as discussed. - My Orders Last 24 Hours: My Active Orders 09/19/18 19:34 Communication Order [RC] STAT 09/19/18 20:34 Communication Order [RC] STAT - Assessment/Plan Last 24 Hours: My Active Orders 09/19/18 19:34 Communication Order [RC] STAT 09/19/18 20:34 Communication Order [RC] STAT
[2018-09-19 20:29] LABS: CHLORIDE,CL 102 mmol/L (98-107); SODIUM,NA 135 mmol/L (136-145)
[2018-09-19] MEDS ORDERED: Phenazopyridine 200 MG Tab PO ONE (20:52)
[2018-09-19] MEDS ORDERED: Magnesium Citrate Solution 296 ML Bottle PO ONE (21:22)
[2018-09-19 22:08] VITALS: BP 107/48
== END 2018-09-19 21:35 | disposition home or self-care (01) ==
LOC: MW.ED 19:09
DX: R33.9 Retention of urine, unspecified (principal); F31.9 Bipolar disorder, unspecified; F90.9 Attention-deficit hyperactivity disorder, unspecified type; F42.9 Obsessive-compulsive disorder, unspecified; Z88.5 Allergy status to narcotic agent; Z79.899 Other long term (current) drug therapy
CPT/HCPCS: 36415; 51798; 80053; 81003; 81025; 85025; 99283; A9270

== ENCOUNTER 2018-09-21 00:41 | Emergency (ER) | payer MEDICAID ==
--- NOTE | 2018-09-21 01:19 | EDM.PDOC ---
ED HPI GENERAL MEDICAL PROBLEM - General Chief Complaint: Genitourinary Problem Stated Complaint: UNABLE TO URINATE Time Seen by Provider: 09/21/18 01:17 - History of Present Illness INITIAL COMMENTS - FREE TEXT/NARRATIVE: HISTORY AND PHYSICAL: History of present illness: Patient 28-year-old female had recent cervical spine fusion is in narcotic analgesics and baclofen presents with concern of urinary retention patient was seen here several days prior with same straight catheter relieved her urinary retention at that time in which her post void bladder scan demonstrated approximate 600 mL she states she has been urinating subsequently until tonight when she had a recurrence she does have a scheduled urology follow-up no fever chills nausea vomiting or other complaints she denies any numbness weakness incontinence or retention of follow. Review of systems: As per history of present illness and below otherwise all systems reviewed and negative. Past medical history: As per history of present illness and as reviewed below otherwise noncontributory. Surgical history: As per history of present illness and as reviewed below otherwise noncontributory. Social history: No reported history of drug or alcohol abuse. Family history: As per history of present illness and as reviewed below otherwise noncontributory. Physical exam: HEENT: Atraumatic, normocephalic, pupils reactive, negative for conjunctival pallor or scleral icterus, mucous membranes moist, throat clear, neck supple, nontender, trachea midline. Lungs: Clear to auscultation, breath sounds equal bilaterally, chest nontender. Heart: S1S2, regular, negative for clicks, rubs, or JVD. Abdomen: Soft, nondistended, nontender. Negative for masses or hepatosplenomegaly. Negative for costovertebral tenderness. Pelvis: Stable nontender. Genitourinary: Deferred. Rectal: Deferred. Extremities: Atraumatic, negative for cords or calf pain. Neurovascular unremarkable. Neuro: Awake, alert, oriented. Cranial nerves II through XII unremarkable. Cerebellum unremarkable. Motor and sensory unremarkable throughout. Exam nonfocal. Diagnostics: UA Bladder[employer]rapeutics: Moon catheter leg bag Impression: #1 urinary retention Definitive disposition and diagnosis as appropriate pending reevaluation and review of above. 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 Pain Score (Numeric/FACES): 6 - Related Data Allergies Allergy/AdvReac Type Severity Reaction Status Date / Time hydrocodone Allergy Itching Verified 09/19/18 19:20 Home Meds: Home Meds Gabapentin [Neurontin] 800 mg PO QID 10/20/17 [History] DULoxetine [Cymbalta] 60 mg PO BID 09/04/18 [History] Support Breast 1 dose PO BID 09/04/18 [History] cloNIDine HCl [Catapres] 0.2 mg PO DAILY PRN 09/04/18 [History] LORazepam 1 tab PO DAILY PRN 09/19/18 [History] Ondansetron [Zofran] 1 tab PO Q8HR PRN 09/19/18 [History] Orphenadrine Citrate [Orphenadrine Citrate ER] 1 tab PO BID 09/19/18 [History] oxyCODONE HCl [Oxycodone HCl] 1 tab PO Q4HR PRN 09/19/18 [History] Past Medical History - Past Health History Medical/Surgical History: Denies Medical/Surgical History HEENT History: Reports: None Cardiovascular History: Reports: None Respiratory History: Reports: None Gastrointestinal History: Reports: None Genitourinary History: Reports: None 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: Musculoskeletal History: Reports: Fibromyalgia, Other (See Below) Other Musculoskeletal History: tendonitis; cervical herniated disck Neurological History: Reports: Concussion, Other (See Below) Other Neuro History: herniated disc Psychiatric History: Reports: ADHD, Anxiety, Bipolar, Depression, OCD Endocrine/Metabolic History: Reports: Hyperthyroidism Hematologic History: Reports: None Immunologic History: Reports: None Oncologic (Cancer) History: Reports: None Dermatologic History: Reports: None - Infectious Disease History Infectious Disease History: Reports: None - Past Surgical History Head Surgeries/Procedures: Reports: None HEENT Surgical History: Reports: None Cardiovascular Surgical History: Reports: None Respiratory Surgical History: Reports: None GI Surgical History: Reports: None Female Surgical History: Reports: Section Endocrine Surgical History: Reports: None Neurological Surgical History: Reports: None Musculoskeletal Surgical History: Reports: None Dermatological Surgical History: Reports: None Social & Family History - Family History Family Medical History: Noncontributory - Tobacco Use Smoking Status *Q: Never Smoker - Caffeine Use Caffeine Use: Reports: Coffee - Recreational Drug Use Recreational Drug Use: No ED ROS GENERAL - Review of Systems Review Of Systems: ROS reveals no pertinent complaints other than HPI. ED EXAM, GENERAL - Physical Exam Exam: See Below (See dictation) Course - Vital Signs Last Recorded V/S: Last Vital Signs Temp 36.1 C 09/21/18 00:41 Pulse 74 09/21/18 00:41 Resp 18 09/21/18 00:41 BP 102/46 L 09/21/18 00:41 Pulse Ox 97 09/21/18 00:41 - Orders/Labs/Meds Orders: Active Orders 24 hr Category Date Time Status Insert Moon Catheter [Insert Urinary Catheter] [OM.PC] Care 09/21/18 01:15 Ordered Q24H Urinary Catheter Assessment [RC] ASDIRECTED Care 09/21/18 01:05 Active UA RFX BONI AND CULT IF INDIC [URIN] Stat Lab 09/21/18 01:07 Ordered Departure - Departure Time of Disposition: Disposition: Home, Self-Care 01 Condition: Good Clinical Impression: Retention of urine - Discharge Information Additional Instructions: The following information is given to patients seen in the emergency department who are being discharged to home. This information is to outline your options for follow-up care. We provide all patients seen in our emergency department with a follow-up referral. The need for follow-up, as well as the timing and circumstances, are variable depending upon the specifics of your emergency department visit. If you don't have a primary care physician on staff, we will provide you with a referral. We always advise you to contact your personal physician following an emergency department visit to inform them of the circumstance of the visit and for follow-up with them and/or the need for any referrals to a consulting specialist. The emergency department will also refer you to a specialist when appropriate. This referral assures that you have the opportunity for followup care with a specialist. All of these measure are taken in an effort to provide you with optimal care, which includes your followup. Under all circumstances we always encourage you to contact your private physician who remains a resource for coordinating your care. When calling for followup care, please make the office aware that this follow-up is from your recent emergency room visit. If for any reason you are refused follow-up, please contact the [facility] emergency department at and asked to speak to the emergency department charge nurse. Keep scheduled appointment with urology Moon leg bag as directed return as needed as discussed - My Orders Last 24 Hours: My Active Orders 09/21/18 01:05 Urinary Catheter Assessment [RC] ASDIRECTED 09/21/18 01:07 UA RFX BONI AND CULT IF INDIC [URIN] Stat 09/21/18 01:15 Insert Moon Catheter [Insert Urinary Catheter] [OM.PC] Q24H - Assessment/Plan Last 24 Hours: My Active Orders 09/21/18 01:05 Urinary Catheter Assessment [RC] ASDIRECTED 09/21/18 01:07 UA RFX BONI AND CULT IF INDIC [URIN] Stat 09/21/18 01:15 Insert Moon Catheter [Insert Urinary Catheter] [OM.PC] Q24H
[2018-09-21 02:09] VITALS: BP 110/55
== END 2018-09-21 01:42 | disposition home or self-care (01) ==
LOC: MW.ED 00:41
DX: R33.9 Retention of urine, unspecified (principal); F41.9 Anxiety disorder, unspecified; F31.9 Bipolar disorder, unspecified; E05.90 Thyrotoxicosis, unspecified without thyrotoxic crisis or storm; Z79.899 Other long term (current) drug therapy; Z88.6 Allergy status to analgesic agent
CPT/HCPCS: 81003; 99283

== ENCOUNTER 2019-07-17 04:14 | Emergency (ER) | payer MEDICAID ==
[2019-07-17] MEDS ORDERED: Bacitracin Oint 1 GM U/D Packet TOP ONE (04:30)
--- NOTE | 2019-07-17 04:37 | EDM.PDOC ---
ED HPI GENERAL MEDICAL PROBLEM - General Chief Complaint: General Stated Complaint: AMB Time Seen by Provider: 07/17/19 04:26 - History of Present Illness INITIAL COMMENTS - FREE TEXT/NARRATIVE: HISTORY AND PHYSICAL: History of present illness: The patient is a 29 y/o female who presents with police reinier she was hitting her head in the back of the squad car and evaluation of a for head contusion. The police initially picked her up at a local establishment because she was being slightly disorderly and they were going to bring her for detox and could not find any responsible alliance party for her and she was being resistant with information about her address and other things and so they put her in the squad car to bring her to detox when she proceeded to hit her head voluntarily causing her injury. She did not pass out or blackout and has been awake and alert per police at bedside. The officer at bedside has located this patient's mother who will come to the ED to take her home. She is not currently under arrest. He says that she does not need a tetanus shot and she is up-to-date and she has no complaints here. Review of systems: As per history of present illness and below otherwise all systems reviewed and negative. Past medical history: As per history of present illness and as reviewed below otherwise noncontributory. Surgical history: As per history of present illness and as reviewed below otherwise noncontributory. Social history: No reported history of drug or alcohol abuse. Family history: As per history of present illness and as reviewed below otherwise noncontributory. Physical exam: General: Well-developed well-nourished female who is nontoxic and speaking in the ED without distress and vital signs are noted by me HEENT: Atraumatic without any scalp defects or deformities with the exception of superior aspect of her for head near her hairline where there is a 1.5 millimeter area of bruised tissue without any discrete laceration but no bony defects or deformities, the remainder of the facial bones are intact with any tenderness defects or deformities, normocephalic, pupils reactive, negative for conjunctival pallor or scleral icterus, mucous membranes moist, throat clear, neck supple, nontender, trachea midline.EOMI, teeth and bite are intact Lungs: Clear to auscultation, breath sounds equal bilaterally, chest nontender. Heart: S1S2, regular rhythm and rate, no overt murmurs Abdomen: Soft, nondistended, nontender. Pelvis: deferred Genitourinary: Deferred. Rectal: Deferred. Extremities: Atraumatic, full range of motion with wrists in handcuffs Neurovascular unremarkable. Neuro: Awake, alert, oriented. Cranial nerves II through XII unremarkable.gait normal into ED Motor and sensory unremarkable throughout. Exam nonfocal. Diagnostics: [] Therapeutics: Cleansing of contusion on forehead with bacitracin application Impression: Forehead contusion status post blunt trauma Definitive disposition and diagnosis as appropriate pending reevaluation and review of above. - Related Data Allergies Allergy/AdvReac Type Severity Reaction Status Date / Time hydrocodone Allergy Itching Verified 09/19/18 19:20 Home Meds: Home Meds Gabapentin [Neurontin] 800 mg PO QID 10/20/17 [History] DULoxetine [Cymbalta] 60 mg PO BID 09/04/18 [History] Support Breast 1 dose PO BID 09/04/18 [History] cloNIDine HCl [Catapres] 0.2 mg PO DAILY PRN 09/04/18 [History] LORazepam 1 tab PO DAILY PRN 09/19/18 [History] Ondansetron [Zofran] 1 tab PO Q8HR PRN 09/19/18 [History] Orphenadrine Citrate [Orphenadrine Citrate ER] 1 tab PO BID 09/19/18 [History] oxyCODONE HCl [Oxycodone HCl] 1 tab PO Q4HR PRN 09/19/18 [History] Past Medical History - Past Health History Medical/Surgical History: Denies Medical/Surgical History HEENT History: Reports: None Cardiovascular History: Reports: None Respiratory History: Reports: None Gastrointestinal History: Reports: None Genitourinary History: Reports: None 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: Musculoskeletal History: Reports: Fibromyalgia, Other (See Below) Other Musculoskeletal History: tendonitis; cervical herniated disck Neurological History: Reports: Concussion, Other (See Below) Other Neuro History: herniated disc Psychiatric History: Reports: ADHD, Anxiety, Bipolar, Depression, OCD Endocrine/Metabolic History: Reports: Hyperthyroidism Hematologic History: Reports: None Immunologic History: Reports: None Oncologic (Cancer) History: Reports: None Dermatologic History: Reports: None - Infectious Disease History Infectious Disease History: Reports: None - Past Surgical History Head Surgeries/Procedures: Reports: None HEENT Surgical History: Reports: None Cardiovascular Surgical History: Reports: None Respiratory Surgical History: Reports: None GI Surgical History: Reports: None Female Surgical History: Reports: Section Endocrine Surgical History: Reports: None Neurological Surgical History: Reports: None Musculoskeletal Surgical History: Reports: None Dermatological Surgical History: Reports: None Social & Family History - Family History Family Medical History: Noncontributory - Caffeine Use Caffeine Use: Reports: Coffee ED ROS GENERAL - Review of Systems Review Of Systems: Comprehensive ROS is negative, except as noted in HPI. ED EXAM, GENERAL - Physical Exam Exam: See Below (see dictation) Course - Orders/Labs/Meds Orders: Active Orders 24 hr Category Date Time Status Communication Order [RC] STAT Care 07/17/19 04:30 Ordered Bacitracin [Bacitracin Oint 1 GM] Med 07/17/19 04:30 Once 1 dose TOP ONETIME ONE Departure - Departure Time of Disposition: 04:37 Disposition: Home, Self-Care 01 Condition: Good Clinical Impression: Contusion of forehead Qualifiers: Encounter type: initial encounter Qualified Code(s): S00.83XA - Contusion of other part of head, initial encounter - Discharge Information Additional Instructions: The following information is given to patients seen in the emergency department who are being discharged to home. This information is to outline your options for follow-up care. We provide all patients seen in our emergency department with a follow-up referral. The need for follow-up, as well as the timing and circumstances, are variable depending upon the specifics of your emergency department visit. If you don't have a primary care physician on staff, we will provide you with a referral. We always advise you to contact your personal physician following an emergency department visit to inform them of the circumstance of the visit and for follow-up with them and/or the need for any referrals to a consulting specialist. The emergency department will also refer you to a specialist when appropriate. This referral assures that you have the opportunity for followup care with a specialist. All of these measure are taken in an effort to provide you with optimal care, which includes your followup. Under all circumstances we always encourage you to contact your private physician who remains a resource for coordinating your care. When calling for followup care, please make the office aware that this follow-up is from your recent emergency room visit. If for any reason you are refused follow-up, please contact the [facility] emergency department at and ask to speak to the emergency department charge nurse. Primary care- Internal Medicine and Family [address] [address] Keep the wound clean and dry cleansing with mild soap and water pat dry and apply bacitracin or Neosporin at least twice a day. Use [id number] Tylenol or ibuprofen for any headache pain and call and schedule a follow-up with your provider in the clinic or one of ours. Return to ER as needed and as discussed - My Orders Last 24 Hours: My Active Orders 07/17/19 04:30 Communication Order [RC] STAT Bacitracin [Bacitracin Oint 1 GM] 1 dose TOP ONETIME ONE - Assessment/Plan Last 24 Hours: My Active Orders 07/17/19 04:30 Communication Order [RC] STAT Bacitracin [Bacitracin Oint 1 GM] 1 dose TOP ONETIME ONE
[2019-07-17 04:46] VITALS: BP 113/80; PULSE 97
== END 2019-07-17 04:46 | disposition home or self-care (01) ==
LOC: MW.ED 04:14
DX: S00.83XA Contusion of other part of head, initial encounter (principal); F41.9 Anxiety disorder, unspecified; F31.9 Bipolar disorder, unspecified; E05.90 Thyrotoxicosis, unspecified without thyrotoxic crisis or storm; Z79.899 Other long term (current) drug therapy; Z88.5 Allergy status to narcotic agent; W22.8XXA Striking against or struck by other objects, initial encounter
CPT/HCPCS: 99282; 99283

== ENCOUNTER 2020-04-06 09:58 | Emergency (ER) | payer MEDICAID ==
--- NOTE | 2020-04-06 10:07 | EDM.PDOC ---
ED HPI GENERAL MEDICAL PROBLEM - General Chief Complaint: Bite:Animal, Insect Stated Complaint: BEE STING Time Seen by Provider: 04/06/20 09:59 Source of Information: Reports: Patient History Limitations: Reports: No Limitations - History of Present Illness INITIAL COMMENTS - FREE TEXT/NARRATIVE: HISTORY AND PHYSICAL: History of present illness: Patient is a 30-year-old female who presents to the emergency room with complaints of redness and swelling to the right bicep area. She believes she was stung by an insect a few days ago and since that time she has had some redness that is been fluctuating in size and severity. She has been taking Benadryl and hot compresses to the area with some relief. Patient denies any fever, chills, headache, change in vision, syncope or near syncope. Denies any chest pain, back pain, shortness of breath or cough. Denies any GI or symptoms. Denies any chance of . Review of systems: As per history of present illness and below otherwise all systems reviewed and negative. Past medical history: As per history of present illness and as reviewed below otherwise noncontributory. Surgical history: As per history of present illness and as reviewed below otherwise noncontributory. Social history: See social history for further information Family history: As per history of present illness and as reviewed below otherwise noncontributory. Physical exam: General: Well developed and well nourished 30 old female. Alert and orientated x 3. Nontoxic in appearance and in no acute distress. Vital signs are stable and have been reviewed by me. Nursing notes were reviewed. HEENT: Atraumatic, normocephalic, pupils equal and reactive bilaterally, negative for conjunctival pallor or scleral icterus, mucous membranes moist, TMs normal bilaterally, throat clear, neck supple, nontender, trachea midline. No drooling or trismus noted. No meningeal signs. No hot potato voice noted. Lungs: Clear to auscultation, breath sounds equal bilaterally, chest nontender. Normal work of breathing, no accessory muscles used. Heart: S1S2, regular rate and rhythm without overt murmur Abdomen: Soft, nondistended, nontender. Skin: $0.50 piece sized area of redness to the right medial bicep. No fluctuance or induration. Otherwise remaining skin is intact, warm, dry. No lesions or rashes noted. Hematologic: No petechiae or purpra. Mucosa appropriate color and normal nail bed color and refill. Extremities: Atraumatic, moves all extremities per self without difficulty or deficits, negative for cords or calf pain. Neurovascular unremarkable. Neuro: Awake, alert, oriented. Cranial nerves II through XII unremarkable. Cerebellum unremarkable. Motor and sensory unremarkable throughout. Exam nonfocal. Notes: Area was outlined with a surgical marker. We discussed signs and symptoms that would prompt them to return to the Emergency Department. Medication, follow up and supportive care measures were reviewed and discussed. Voices understanding and is agreeable to plan of care. Denies any further questions or concerns at this time. Diagnostics: None Therapeutics: None Prescription: Keflex Impression: Cellulitis, right arm Plan: 1. Today your physical exam shows a localized infection of the right bicep area. Continue to monitor the site closely. Take the antibiotic as directed. Benadryl [id number] routinely over the next few days. 2. Today Tylenol and ibuprofen as needed for pain management. 3. We always encourage you to follow up with your primary care provider or recommended specialist in the next few days for re-evaluation and further care/management. If your symptoms should worsen, new symptoms develop or any of the signs and symptoms we discussed should arise please return to the emergency room or call 911 (if needed). Definitive disposition and diagnosis as appropriate pending reevaluation and review of above. - Related Data Allergies Allergy/AdvReac Type Severity Reaction Status Date / Time hydrocodone Allergy Itching Verified 07/17/19 04:31 Home Meds: Home Meds Gabapentin [Neurontin] 800 mg PO QID 10/20/17 [History] DULoxetine [Cymbalta] 60 mg PO BID 09/04/18 [History] Support Breast 1 dose PO BID 09/04/18 [History] cloNIDine HCL [Catapres] 0.2 mg PO DAILY PRN 09/04/18 [History] LORazepam 1 tab PO DAILY PRN 09/19/18 [History] Ondansetron [Zofran] 1 tab PO Q8HR PRN 09/19/18 [History] Orphenadrine Citrate [Orphenadrine Citrate ER] 1 tab PO BID 09/19/18 [History] oxyCODONE HCl [Oxycodone HCl] 1 tab PO Q4HR PRN 09/19/18 [History] cephALEXin [Keflex] 500 mg PO BID 5 Days #10 capsule 04/06/20 [Rx] Past Medical History - Past Health History Medical/Surgical History: Denies Medical/Surgical History HEENT History: Reports: None Cardiovascular History: Reports: None Respiratory History: Reports: None Gastrointestinal History: Reports: None Genitourinary History: Reports: None 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: Musculoskeletal History: Reports: Fibromyalgia, Other (See Below) Other Musculoskeletal History: tendonitis; cervical herniated disck Neurological History: Reports: Concussion, Other (See Below) Other Neuro History: herniated disc Psychiatric History: Reports: ADHD, Anxiety, Bipolar, Depression, OCD Endocrine/Metabolic History: Reports: Hyperthyroidism Hematologic History: Reports: None Immunologic History: Reports: None Oncologic (Cancer) History: Reports: None Dermatologic History: Reports: None - Infectious Disease History Infectious Disease History: Reports: None - Past Surgical History Head Surgeries/Procedures: Reports: None HEENT Surgical History: Reports: None Cardiovascular Surgical History: Reports: None Respiratory Surgical History: Reports: None GI Surgical History: Reports: None Female Surgical History: Reports: Section Endocrine Surgical History: Reports: None Neurological Surgical History: Reports: None Musculoskeletal Surgical History: Reports: None Dermatological Surgical History: Reports: None Social & Family History - Family History Family Medical History: Noncontributory - Caffeine Use Caffeine Use: Reports: Coffee ED ROS GENERAL - Review of Systems Review Of Systems: Comprehensive ROS is negative, except as noted in HPI. ED EXAM, ANIMAL BITE - Physical Exam Exam: See Below (See dictation) Departure - Departure Time of Disposition: 10:07 Disposition: Home, Self-Care 01 Clinical Impression: Cellulitis Qualifiers: Site of cellulitis: extremity Site of cellulitis of extremity: upper extremity Laterality: right Qualified Code(s): L03.113 - Cellulitis of right upper limb - Discharge Information Prescriptions: cephALEXin [Keflex] 500 mg PO BID 5 Days #10 capsule Instructions: Cellulitis, Adult, Njsv-of-Tubs Referrals: PCP,None [Primary Care Provider] - Forms: ED Department Discharge Additional Instructions: The following information is given to patients seen in the emergency department who are being discharged to home. This information is to outline your options for follow-up care. We provide all patients seen in our emergency department with a follow-up referral. The need for follow-up, as well as the timing and circumstances, are variable depending upon the specifics of your emergency department visit. If you don't have a primary care physician on staff, we will provide you with a referral. We always advise you to contact your personal physician following an emergency department visit to inform them of the circumstance of the visit and for follow-up with them and/or the need for any referrals to a consulting specialist. The emergency department will also refer you to a specialist when appropriate. This referral assures that you have the opportunity for follow-up care with a specialist. All of these measure are taken in an effort to provide you with optimal care, which includes your follow-up. Under all circumstances we always encourage you to contact your private physician who remains a resource for coordinating your care. When calling for follow-up care, please make the office aware that this follow-up is from your recent emergency room visit. If for any reason you are refused follow-up, please contact the [facility] Emergency Department at and asked to speak to the emergency department charge nurse. [facility] [address] [place] [address] [place] [id number] Thank you for choosing the [facility] emergency department in [place] for your medical needs today. It was a pleasure caring for you. Today you were seen in the emergency department for skin irritation and redness. 1. Today your physical exam shows a localized infection of the right bicep area. Continue to monitor the site closely. Take the antibiotic as directed. Benadryl [id number] routinely over the next few days. 2. Today Tylenol and ibuprofen as needed for pain management. 3. We always encourage you to follow up with your primary care provider or thierry mmended specialist in the next few days for re-evaluation and further care/management. If your symptoms should worsen, new symptoms develop or any of the signs and symptoms we discussed should arise please return to the emergency room or call [phone] (if needed).
[2020-04-06 10:13] VITALS: BP 108/67; PULSE 92
== END 2020-04-06 10:20 | disposition home or self-care (01) ==
LOC: MW.ED 09:58
DX: L03.113 Cellulitis of right upper limb (principal); F41.9 Anxiety disorder, unspecified; F32.9 Major depressive disorder, single episode, unspecified; Z79.899 Other long term (current) drug therapy; Z88.5 Allergy status to narcotic agent
CPT/HCPCS: 99283

== ENCOUNTER 2020-12-11 02:06 | Emergency (ER) | payer MEDICAID ==
[2020-12-11] MEDS ORDERED: Sodium Chloride 0.9% 10 ML Syringe FLUSH PRN (02:32)
[2020-12-11] MEDS ORDERED: Sodium Chloride 0.9% 2.5 ML Syringe FLUSH PRN (02:32)
[2020-12-11] MEDS ORDERED: Sodium Chloride 0.9% 1,000 ML IV ONE (02:33)
--- NOTE | 2020-12-11 02:36 | EDM.PDOC ---
ED HPI GENERAL MEDICAL PROBLEM - General Chief Complaint: Abdominal Pain Stated Complaint: ABDOMINAL PAIN Time Seen by Provider: 12/11/20 02:21 - History of Present Illness INITIAL COMMENTS - FREE TEXT/NARRATIVE: History of present illness: [] The patient has sudden onset of abdominal pain this morning. She has pain in the abdomen with distention. She says she has rapidly progressive large distention. It happened her also in August and at that time she also came in with such distention and her doctor checked her for heart tones. She is not sexually active since August and does not think she is . She has no nausea and vomiting. Patient has been recently constipated. She has also had some diarrhea stools. She is passing gas even today and not vomiting. Review of systems: As per history of present illness and below otherwise all systems reviewed and negative. Past medical history: As per history of present illness and as reviewed below otherwise noncontributory. Surgical history: As per history of present illness and as reviewed below otherwise noncontributory. Social history: No reported history of drug or alcohol abuse. Family history: As per history of present illness and as reviewed below otherwise noncontributory. Physical exam: Constitutional - well developed, well-nourished and in no acute distress HEENT - normocephalic, no evidence of trauma - external nose and mouth normal - no mass in neck and no JVD - mucosae moist EYES - full EOM, PERRL, no icterus - no evidence of inflammation, injection, or drainage Respiratory - no respiratory distress, equal bilateral expansion, lungs clear to auscultation and no abnormal lung sounds Cardiovascular - Regular Rhythm with S1 and S2 appreciated and no murmur, gallop or rub. GI - abdomen soft but extremely distended. She has the external appearance of a full-term gravid uterus but it soft and in no palpable the bony parts. There are no heart tones. There is diffuse mild tenderness.- normal bowel sounds - no guard or rebound Musculoskeletal no gross deformity of long bones or joints - no tenderness, swelling or edema Neurologic - Alert and oriented times four - CN II-XII grossly intact - motor sensory and coordination symmetrically normal Psychiatric - appropriate mood and affect with normal thought content Hematologic - No petechiae or purpura - mucosa appropriate color and sclera not pale - normal nail bed color and refill Integument - no rash or evidence of trauma - normal turgor Diagnostics: [] Therapeutics: [] Impression: [] Plan: [] Definitive disposition and diagnosis as appropriate pending reevaluation and review of above. abdominal Pain Score (Numeric/FACES): 8 - Related Data Allergies Allergy/AdvReac Type Severity Reaction Status Date / Time hydrocodone Allergy Itching Verified 12/11/20 02:21 Home Meds: Home Meds Gabapentin [Neurontin] 800 mg PO QID 10/20/17 [History] Amoxicillin/Clavulanate K [Augmentin 875-125 MG] 1 tab PO BID #20 tablet 12/11/20 [Rx] [employer] Carbon[employer] 900 mg PO DAILY 12/11/20 [History] Non-Formulary Medication [NF Drug] 1 each INH DAILY 12/11/20 [History] Omeprazole Magnesium [Prilosec Otc] 20 mg PO DAILY 12/11/20 [History] PARoxetine [Paxil] 100 mg PO DAILY 12/11/20 [History] Past Medical History - Past Health History Medical/Surgical History: Denies Medical/Surgical History HEENT History: Reports: None Cardiovascular History: Reports: None Respiratory History: Reports: None Gastrointestinal History: Reports: None Genitourinary History: Reports: None 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: Musculoskeletal History: Reports: Fibromyalgia, Other (See Below) Other Musculoskeletal History: tendonitis; cervical herniated disck Neurological History: Reports: Concussion, Other (See Below) Other Neuro History: herniated disc Psychiatric History: Reports: ADHD, Anxiety, Bipolar, Depression, OCD Endocrine/Metabolic History: Reports: Hyperthyroidism Hematologic History: Reports: None Immunologic History: Reports: None Oncologic (Cancer) History: Reports: None Dermatologic History: Reports: None - Infectious Disease History Infectious Disease History: Reports: Chicken Pox - Past Surgical History Head Surgeries/Procedures: Reports: None HEENT Surgical History: Reports: Oral Surgery Cardiovascular Surgical History: Reports: None Respiratory Surgical History: Reports: None GI Surgical History: Reports: None Female Surgical History: Reports: Section Endocrine Surgical History: Reports: None Neurological Surgical History: Reports: None Musculoskeletal Surgical History: Reports: None Other Musculoskeletal Surgeries/Procedures:: 3x herniated disc Dermatological Surgical History: Reports: None Social & Family History - Family History Family Medical History: No Pertinent Family History - Tobacco Use Tobacco Use Status *Q: Never Tobacco User Second Hand Smoke Exposure: No - Caffeine Use Caffeine Use: Reports: Coffee, Energy Drinks, Soda, Tea - Recreational Drug Use Recreational Drug Use: No ED ROS GENERAL - Review of Systems Review Of Systems: Comprehensive ROS is negative, except as noted in HPI. ED EXAM, GENERAL - Physical Exam Exam: See Below Free Text/Narrative:: My physical exam is in the HPI Course - Vital Signs Text/Narrative:: Oh 3:17 AM patient's x-rays show increased gas throughout her intestines all the way to the sigmoid or rectum. Rectal exam the patient has no stool in the vault. 0344 hrs. labs were normal. X-ray showed excess air throughout. She had the same thing happened in August of this year and she was treated with Dulcolax and Senokot. She also took enemas. They never found any serious cause that required surgery. The patient says she was constipated until 09 Dec 2020 when she had diarrhea 10 times which was liquid. After that she did not have a bowel movement for the entire day on 10 Dec 2020. She woke up about half an hour before she got to the emergency room this morning with distention and pain. My interpretation is that she has an acute colitis which is recurrent. Treated with Augmentin. She will continue stool softeners and cathartic laxatives as needed. She will drink plenty of fluids. She will have colonoscopy and follow- up either by the local surgeons and her primary doctor or primary can refer her to GI. Last Recorded V/S: Last Vital Signs Temp 36.7 C 12/11/20 02:24 Pulse 76 12/11/20 02:24 Resp 18 12/11/20 02:24 BP 132/52 L 12/11/20 02:24 Pulse Ox 97 12/11/20 02:24 - Orders/Labs/Meds Orders: Active Orders 24 hr Category Date Time Status Sodium Chloride 0.9% [Saline Flush] Med 12/11/20 02:32 Active 10 ml FLUSH ASDIRECTED PRN Sodium Chloride 0.9% [Saline Flush] Med 12/11/20 02:32 Active 2.5 ml FLUSH ASDIRECTED PRN Saline Lock Insert [OM.PC] Stat Oth 12/11/20 02:32 Ordered Medication Orders Sodium Chloride (Sodium Chloride 0.9% 10 Ml Syringe) 10 ml FLUSH ASDIRECTED PRN PRN Reason: Keep Vein Open Last Admin: 12/11/20 02:39 Dose: 10 ml Documented by: MATTHEW Sodium Chloride (Sodium Chloride 0.9% 2.5 Ml Syringe) 2.5 ml FLUSH ASDIRECTED PRN PRN Reason: Keep Vein Open Last Admin: 12/11/20 02:39 Dose: 2.5 ml Documented by: MATTHEW Labs: Laboratory Tests 12/11/20 12/11/20 12/11/20 Range/Units 02:11 02:11 02:44 WBC 9.58 (4.0-11.0) K/uL RBC 4.17 L (4.30-5.90) M/uL Hgb 12.7 (12.0-16.0) g/dL Hct 37.8 (36.0-46.0) % MCV 90.6 (80.0-98.0) fL MCH 30.5 (27.0-32.0) pg MCHC 33.6 (31.0-37.0) g/dL RDW Std Deviation 43.1 (28.0-62.0) fl RDW Coeff of Laex 13 (11.0-15.0) % Plt Count 223 (150-400) K/uL MPV 9.80 (7.40-12.00) fL Neut % (Auto) 56.2 (48.0-80.0) % Lymph % (Auto) 29.2 (16.0-40.0) % Benson % (Auto) 9.3 (0.0-15.0) % Eos % (Auto) 4.9 (0.0-7.0) % Baso % (Auto) 0.4 (0.0-1.5) % Neut # (Auto) 5.4 (1.4-5.7) K/uL Lymph # (Auto) 2.8 H (0.6-2.4) K/uL Benson # (Auto) 0.9 H (0.0-0.8) K/uL Eos # (Auto) 0.5 (0.0-0.7) K/uL Baso # (Auto) 0.0 (0.0-0.1) K/uL Nucleated RBC % 0.0 /100WBC Nucleated RBCs # 0 K/uL Lactate (0.20-2.00) mmol/L Sodium (136-145) mmol/L Potassium (3.5-5.1) mmol/L Chloride (98-107) mmol/L Carbon Dioxide (21.0-32.0) mmol/L BUN (7.0-18.0) mg/dL Creatinine (0.6-1.0) mg/dL Est Cr Clr Drug Dosing mL/min Estimated GFR (MDRD) ml/min Glucose (74-106) mg/dL Calcium (8.5-10.1) mg/dL Total Bilirubin (0.2-1.0) mg/dL AST (15-37) IU/L ALT (14-63) IU/L Alkaline Phosphatase (46-116) U/L Total Protein (6.4-8.2) g/dL Albumin (3.4-5.0) g/dL Globulin (2.6-4.0) g/dL Albumin/Globulin Ratio (0.9-1.6) Lipase (73-393) U/L Urine Color YELLOW Urine Appearance CLEAR Urine pH 6.5 (5.0-8.0) Ur Specific [place] <= 1.005 (1.001-1.035) Urine Protein NEGATIVE (NEGATIVE) mg/dL Urine Glucose (UA) NEGATIVE (NEGATIVE) mg/dL Urine Ketones NEGATIVE (NEGATIVE) mg/dL Urine Occult Blood NEGATIVE (NEGATIVE) Urine Nitrite NEGATIVE (NEGATIVE) Urine Bilirubin NEGATIVE (NEGATIVE) Urine Urobilinogen 0.2 (<2.0) EU/dL Ur Leukocyte Esterase NEGATIVE (NEGATIVE) Urine HCG, Qual NEGATIVE (NEGATIVE) 12/11/20 12/11/20 Range/Units 02:44 02:44 WBC (4.0-11.0) K/uL RBC (4.30-5.90) M/uL Hgb (12.0-16.0) g/dL Hct (36.0-46.0) % MCV (80.0-98.0) fL MCH (27.0-32.0) pg MCHC (31.0-37.0) g/dL RDW Std Deviation (28.0-62.0) fl RDW Coeff of Alex (11.0-15.0) % Plt Count (150-400) K/uL MPV (7.40-12.00) fL Neut % (Auto) (48.0-80.0) % Lymph % (Auto) (16.0-40.0) % Benson % (Auto) (0.0-15.0) % Eos % (Auto) (0.0-7.0) % Baso % (Auto) (0.0-1.5) % Neut # (Auto) (1.4-5.7) K/uL Lymph # (Auto) (0.6-2.4) K/uL Benson # (Auto) (0.0-0.8) K/uL Eos # (Auto) (0.0-0.7) K/uL Baso # (Auto) (0.0-0.1) K/uL Nucleated RBC % /100WBC Nucleated RBCs # K/uL Lactate 0.4 (0.20-2.00) mmol/L Sodium 143 (136-145) mmol/L Potassium 3.8 (3.5-5.1) mmol/L Chloride 107 (98-107) mmol/L Carbon Dioxide 24.0 (21.0-32.0) mmol/L BUN 5 L (7.0-18.0) mg/dL Creatinine 0.9 (0.6-1.0) mg/dL Est Cr Clr Drug Dosing 84.01 mL/min Estimated GFR (MDRD) > 60.0 ml/min Glucose 85 (74-106) mg/dL Calcium 8.0 L (8.5-10.1) mg/dL Total Bilirubin 0.2 (0.2-1.0) mg/dL AST 15 (15-37) IU/L ALT 17 (14-63) IU/L Alkaline Phosphatase 84 (46-116) U/L Total Protein 6.8 (6.4-8.2) g/dL Albumin 3.8 (3.4-5.0) g/dL Globulin 3.0 (2.6-4.0) g/dL Albumin/Globulin Ratio 1.3 (0.9-1.6) Lipase 108 (73-393) U/L Urine Color Urine Appearance Urine pH (5.0-8.0) Ur Specific [place] (1.001-1.035) Urine Protein (NEGATIVE) mg/dL Urine Glucose (UA) (NEGATIVE) mg/dL Urine Ketones (NEGATIVE) mg/dL Urine Occult Blood (NEGATIVE) Urine Nitrite (NEGATIVE) Urine Bilirubin (NEGATIVE) Urine Urobilinogen (<2.0) EU/dL Ur Leukocyte Esterase (NEGATIVE) Urine HCG, Qual (NEGATIVE) Meds: Medications Generic Name Dose Route Start Last Admin Trade Name Freq PRN Reason Stop Dose Admin Sodium Chloride 10 ml 12/11/20 02:32 12/11/20 02:39 Sodium Chloride 0.9% 10 Ml Syringe FLUSH 10 ml ASDIRECTED PRN Administration Keep Vein Open Sodium Chloride 2.5 ml 12/11/20 02:32 12/11/20 02:39 Sodium Chloride 0.9% 2.5 Ml Syringe FLUSH 2.5 ml ASDIRECTED PRN Administration Keep Vein Open Discontinued Medications Generic Name Dose Route Start Last Admin Trade Name Freq PRN Reason Stop Dose Admin Amoxicillin/Clavulanate Potassium 1 tab 12/11/20 03:41 Amoxicillin/Clavulanate K 875-125 Mg Tab PO 12/11/20 03:42 ONETIME ONE Sodium Chloride 1,000 mls @ 1,000 mls/hr 12/11/20 02:33 12/11/20 02:39 Normal Saline IV 12/11/20 03:32 1,000 mls/hr .Bolus ONE Administration Departure - Departure Time of Disposition: 03:45 Disposition: Home, Self-Care 01 Condition: Good Clinical Impression: Colitis, Ileus - Discharge Information Prescriptions: Amoxicillin/Clavulanate K [Augmentin 875-125 MG] 1 tab PO BID #20 tablet Instructions: Colitis Referrals: Cem Zuniga MD [Primary Care Provider] - Forms: ED Department Discharge Additional Instructions: You should have colonoscopy locally and follow-up with your primary doctor or have your primary doctor refer you directly to gastroenterology for colonoscopy and follow-up. [facility] - General Surgery Professional Building [address] [place] [address], [address] [place] [address] The following information is given to patients seen in the emergency department who are being discharged to home. This information is to outline your options for follow-up care. We provide all patients seen in our emergency department with a follow-up referral. The need for follow-up, as well as the timing and circumstances, are variable depending upon the specifics of your emergency department visit. If you don't have a primary care physician on staff, we will provide you with a referral. We always advise you to contact your personal physician following an emergency department visit to inform them of the circumstance of the visit and for follow-up with them and/or the need for any referrals to a consulting specialist. The emergency department will also refer you to a specialist when appropriate. This referral assures that you have the opportunity for follow-up care with a specialist. All of these measure are taken in an effort to provide you with optimal care, which includes your follow-up. Under all circumstances we always encourage you to contact your private physician who remains a resource for coordinating your care. When calling for follow-up care, please make the office aware that this follow-up is from your recent emergency room visit. If for any reason you are refused follow-up, please contact the [facility] Emergency Department at and asked to speak to the emergency department charge nurse. Sepsis Event Note (ED) - Evaluation Sepsis Screening Result: No Definite Risk - Focused Exam Vital Signs: Vital Signs Temp Pulse Resp BP Pulse Ox 12/11/20 02:24 36.7 C 76 18 132/52 L 97 - My Orders Last 24 Hours: My Active Orders 12/11/20 02:32 Sodium Chloride 0.9% [Saline Flush] 10 ml FLUSH ASDIRECTED PRN Sodium Chloride 0.9% [Saline Flush] 2.5 ml FLUSH ASDIRECTED PRN Saline Lock Insert [OM.PC] Stat - Assessment/Plan Last 24 Hours: My Active Orders 12/11/20 02:32 Sodium Chloride 0.9% [Saline Flush] 10 ml FLUSH ASDIRECTED PRN Sodium Chloride 0.9% [Saline Flush] 2.5 ml FLUSH ASDIRECTED PRN Saline Lock Insert [OM.PC] Stat
[2020-12-11 03:11] LABS: BLOOD UREA NITROGEN,BUN 5 mg/dL (7.0-18.0); CHLORIDE,CL 107 mmol/L (98-107); GLUCOSE RANDOM 85 mg/dL (74-106); LIPASE 108 U/L (73-393); POTASSIUM,K 3.8 mmol/L (3.5-5.1); SODIUM,NA 143 mmol/L (136-145)
--- NOTE | 2020-12-11 03:19 | CR ---
Indication: Abdominal pain, distention and diarrhea. Technique: Single-view chest and two view abdomen. Comparison: Chest x-ray 06/16/2018 Findings/Impression: Single view of the chest shows no pleural effusion or pneumothorax. Lungs are clear. Heart and mediastinum unremarkable. Views of the abdomen and pelvis show colonic distention with air seen to the level of the rectosigmoid. Small amount of stool at the level of the rectosigmoid. Appearance is suggestive of a colonic ileus/colitis. Osseous structures unremarkable. Dictated by Sherman Albarran MD @ 12/11/2020 3:17:[address] Sherman Albarran @ Dec 11 2020 3:17AM
[2020-12-11] MEDS ORDERED: Amoxicillin/Clavulanate K 875-125 MG Tab PO ONE (03:41)
[2020-12-11 04:04] VITALS: BP 102/54; PULSE 68
== END 2020-12-11 04:02 | disposition home or self-care (01) ==
LOC: MW.ED 02:06
DX: K52.9 Noninfective gastroenteritis and colitis, unspecified (principal); K56.7 Ileus, unspecified; Z88.5 Allergy status to narcotic agent; Z79.899 Other long term (current) drug therapy
CPT/HCPCS: 36415; 74022; 80053; 81003; 81025; 83605; 83690; 85025; 99284; A9270; J7030

== ENCOUNTER 2021-01-10 08:58 | Day surgery (SDC) | payer MEDICAID ==
--- NOTE | 2021-01-10 08:09 | PCM.PREANE ---
Preanesthetic Assessment - Anesthesia/Transfusion/Family Hx Anesthesia History: Prior Anesthesia Without Reaction Transfusion History: No Prior Transfusion(s) - Physical Assessment NPO Status Date: 01/10/21 NPO Status Time: 00:00 Height: 1.68 m Weight: 71.668 kg ASA Class: 3 Mental Status: Alert & Oriented x3 Airway Class: Mallampati = 1 Dentition: Reports: Normal Dentition ROM/Head Extension: Full Lungs: Clear to Auscultation, Normal Respiratory Effort Cardiovascular: Regular Rate, Regular Rhythm - Allergies Allergies/Adverse Reactions: Allergies Allergy/AdvReac Type Severity Reaction Status Date / Time No Known Allergies Allergy Verified 01/04/21 11:01 - Acknowledgements Anesthesia Type Planned: General Anesthesia Pt an Appropriate Candidate for the Planned Anesthesia: Yes Alternatives and Risks of Anesthesia Discussed w Pt/Guardian: Yes Pt/Guardian Understands and Agrees with Anesthesia Plan: Yes PreAnesthesia Questionnaire - Past Health History Medical/Surgical History: Denies Medical/Surgical History HEENT History: Reports: Other (See Below) Other HEENT History: top and bottom dentures Cardiovascular History: Reports: None Respiratory History: Reports: None Gastrointestinal History: Reports: GERD, Irritable Bowel Syndrome Genitourinary History: Reports: None WORM PACKER History: Reports: Musculoskeletal History: Reports: Back Pain, Chronic, Fibromyalgia, Neck Pain, Chronic, Other (See Below) Other Musculoskeletal History: DDD Neurological History: Reports: Concussion Psychiatric History: Reports: Anxiety, Bipolar, Depression, PTSD Endocrine/Metabolic History: Reports: None, Hyperthyroidism Hematologic History: Reports: None Immunologic History: Reports: None Oncologic (Cancer) History: Reports: None Dermatologic History: Reports: None - Infectious Disease History Infectious Disease History: Reports: Chicken Pox - Past Surgical History Head Surgeries/Procedures: Reports: None HEENT Surgical History: Reports: Oral Surgery Cardiovascular Surgical History: Reports: None Respiratory Surgical History: Reports: None GI Surgical History: Reports: None Female Surgical History: Reports: Section Endocrine Surgical History: Reports: None Neurological Surgical History: Reports: C-Spine Other Neurological Surgeries/Procedures: hx cervical fusion Musculoskeletal Surgical History: Reports: None Oncologic Surgical History: Reports: None Dermatological Surgical History: Reports: None - SUBSTANCE USE Tobacco Use Status *Q: Former Tobacco User Tobacco Use Within Last Twelve Months: Cigarettes, Other (See Below) Recreational Drug Type: Reports: Marijuana/Hashish - HOME MEDS Home Medications: Home Meds Gabapentin [Neurontin] 900 mg PO WITHBREAKFAST 10/20/17 [History] Vadito Carbonate 900 mg PO BEDTIME 12/11/20 [History] Acetaminophen [Tylenol] 2 tab PO ASDIRECTED PRN 01/04/21 [History] Dicyclomine [Bentyl] 20 mg PO ASDIRECTED PRN 01/04/21 [History] Gabapentin [Neurontin] 600 mg PO BEDTIME 01/04/21 [History] LORazepam [Ativan] 0.5 mg PO ASDIRECTED PRN 01/04/21 [History] Medical Marijuana 1 dose INH ASDIRECTED PRN 01/04/21 [History] Multivitamin 1 tab PO DAILY 01/04/21 [History] Prazosin HCl [Prazosin] 2 mg PO BEDTIME 01/04/21 [History] Venlafaxine HCl 100 mg PO BEDTIME 01/04/21 [History] - CURRENT (IN HOUSE) MEDS Current Meds: Current Medications Lactated Ringer's (Ringers, Lactated) 1,000 mls @ 125 mls/hr IV ASDIRECTED KELSEA Sodium Chloride (Sodium Chloride 0.9% 10 Ml Syringe) 10 ml FLUSH ASDIRECTED PRN PRN Reason: Keep Vein Open Sodium Chloride (Sodium Chloride 0.9% 2.5 Ml Syringe) 2.5 ml FLUSH ASDIRECTED PRN PRN Reason: Keep Vein Open Sodium Chloride (Sodium Chloride 0.9% 10 Ml Syringe) 10 ml FLUSH ASDIRECTED PRN PRN Reason: Keep Vein Open Sodium Chloride (Sodium Chloride 0.9% 2.5 Ml Syringe) 2.5 ml FLUSH ASDIRECTED PRN PRN Reason: Keep Vein Open Sodium Chloride (Sodium Chloride 0.9% 10 Ml Sdv) 10 ml IV ASDIRECTED PRN PRN Reason: IV Use
[~2021-01-10 08:58] MED LIST: Albuterol 0.083% 2.5 MG/3 ML Neb Soln NEB PRN; Ketamine 500 mg/10 ML MDV ONE; Lactated Ringers 1,000 ML IV SCH; Lidocaine 2% 5 ML SDV ONE; Naloxone 0.4 MG/ML Syringe IVPUSH PRN; Ondansetron 4 MG/2 ML SDV IVPUSH PRN; Ondansetron 4 MG/2 ML SDV ONE; Propofol 200 MG/20 ML SDV ONE; Sodium Chloride 0.9% 10 ML SDV IV PRN; Sodium Chloride 0.9% 10 ML Syringe FLUSH PRN; Sodium Chloride 0.9% 2.5 ML Syringe FLUSH PRN; Sodium Chloride 0.9% 20 ML ONE; fentaNYL 100 MCG/2 ML SDV ONE
[2021-01-10] MEDS ORDERED: Propofol 200 MG/20 ML SDV ONE (09:04)
--- NOTE | 2021-01-10 11:00 | PCM.OPNOTE ---
- General Post-Op/Procedure Note Date of Surgery/Procedure: 01/10/21 Operative Procedure(s): Diagnostic EGD and colonoscopy Findings: Transverse colon polyp, otherwise normal appearing colon and EGD Pre Op Diagnosis: Abdominal pain, bloating, change in bowel habits Post-Op Diagnosis: Transverse colon polyp, IBS Anesthesia Technique: MAC Primary Surgeon: Urmila Estevez Condition: Good
--- NOTE | 2021-01-10 11:13 | PCM.POSTAN ---
POST ANESTHESIA ASSESSMENT - MENTAL STATUS Mental Status: Alert, Oriented - VITAL SIGNS Vital Signs: Last Vital Signs Temp 97.5 F 01/10/21 09:10 Pulse 78 01/10/21 11:10 Resp 16 01/10/21 11:10 BP 100/60 01/10/21 11:10 Pulse Ox 95 01/10/21 11:10 - RESPIRATORY Respiratory Status: Respiratory Rate WNL, Airway Patent, O2 Saturation Stable - CARDIOVASCULAR CV Status: Pulse Rate WNL, Blood Pressure Stable - GASTROINTESTINAL GI Status: No Symptoms - POST OP HYDRATION Hydration Status: Adequate & Stable
--- NOTE | 2021-01-10 11:13 | PCM48HPAN ---
Post Anesthesia Note - EVALUATION WITHIN 48HRS OF ANESTHETIC Vital Signs in Normal Range: Yes Patient Participated in Evaluation: Yes Respiratory Function Stable: Yes Airway Patent: Yes Cardiovascular Function Stable: Yes Hydration Status Stable: Yes Pain Control Satisfactory: Yes Nausea and Vomiting Control Satisfactory: Yes Mental Status Recovered: Yes Vital Signs: Last Vital Signs Temp 97.5 F 01/10/21 09:10 Pulse 78 01/10/21 11:10 Resp 16 01/10/21 11:10 BP 100/60 01/10/21 11:10 Pulse Ox 95 01/10/21 11:10
[2021-01-10 12:11] VITALS: BP 106/61; PULSE 63
--- NOTE | 2021-01-11 13:04 | OR ---
SURGEON: URMILA ESTEVEZ MD DATE OF PROCEDURE: 01/10/2021 PREOPERATIVE DIAGNOSES: 1. Abdominal pain. 2. Bloating. 3. Change in bowel habits. POSTOPERATIVE DIAGNOSES: 1. Transverse colon polyp. 2. Irritable bowel syndrome. PROCEDURE PERFORMED: Diagnostic esophagogastroduodenoscopy and colonoscopy. PRIMARY SURGEON: Urmila Estevez MD. ANESTHESIA: MAC. INSTRUMENT USED: Olympus endoscope and colonoscope. EXTENT OF EXAM: To the second portion of duodenum, to the cecum. PREPARATION: Good. LIMITATIONS: None. INDICATIONS FOR EXAMINATION: The patient is a 30-year-old female with a past medical history significant for illicit drug use. In the past year, the patient has been in recovery. Over the last several months, she has noticed increasing postprandial abdominal pain and bloating. She has had a previous cholecystectomy. She has also had a dramatic change in her bowel habits. She has been constipated and requiring large amounts of laxatives in order to have bowel movements. Recently, she was in the emergency room with abdominal distention due to a large amount of gas throughout her small and large intestines. She underwent a CT scan of the abdomen and pelvis, which showed no acute pathology. The patient and I discussed the need for diagnostic EGD and colonoscopy. I explained the procedures, expected perioperative course, and the risks. She verbalized understanding and wishes to proceed. PROCEDURE IN DETAIL: The patient was brought to the endoscopy suite and placed in a left lateral decubitus position. A time-out was completed verifying the patient's name, age, date of , allergies, and procedure to be performed. Monitored anesthesia care was induced. A bite block was placed in the patient's mouth and continuous oxygen was provided via nasal cannula throughout the procedure. After adequate sedation was achieved, a well-lubricated endoscope was placed in the patient's mouth and advanced under direct visualization to the second portion of duodenum. This appeared normal, and a photograph was taken. The scope was then fully withdrawn while examining the color, texture, anatomy, and integrity of the mucosa of the upper GI tract. The duodenum appeared normal. A biopsy was taken in the first portion of duodenum and sent to Pathology, labeled as duodenum biopsy. The scope was brought into the stomach, and a photograph was taken of the pylorus and GE junction. Both appeared normal. Biopsies were taken of the gastric antrum, body, and fundus and sent for histologic review and H. pylori testing. No evidence of any ulceration or inflammation was noted. The scope was brought into the distal esophagus. A photograph was taken of a normal- appearing Z-line. A biopsy was taken 1 cm above the Z-line and sent to Pathology, labeled as esophagus. The remainder of the esophagus appeared free of pathology. The scope was removed, and this portion of procedure terminated. A digital rectal exam was performed. This exam was within normal limits. A well-lubricated colonoscope was inserted into the rectum and advanced under direct visualization to the level of the cecum. The cecum was identified by both visual and anatomic landmarks. A photograph was taken of the cecal cap; however, I was unable to retroflex the scope within the cecum due to looping of the scope more proximally. The scope was then fully withdrawn while examining the color, texture, anatomy, and integrity of mucosa from the cecum to the anal canal. The colonic mucosa all appeared normal. Biopsies were taken of the cecum, ascending colon, descending colon, transverse colon, sigmoid colon, and rectum and sent for histologic review. In the mid transverse colon, the patient was noted to have a small sessile polyp. This was removed in piecemeal fashion using cold biopsy forceps. The scope was retroflexed within the rectum to allow visualization of the anal canal opening. This appeared normal, and a photograph was taken. The scope was then straightened out and fully withdrawn. The cecum to anus time was 15 minutes. The patient tolerated the procedure well and was transferred to the PACU in stable condition. ENDOSCOPIC DIAGNOSES: 1. Transverse colon polyp. 2. Irritable bowel syndrome. RECOMMENDATIONS: We will follow up with the patient in clinic in 2 weeks to review her biopsy results and any further steps in treatment. DANIELLE KENNEDY /[id number]
== END 2021-01-10 11:45 | disposition home or self-care (01) ==
LOC: MW.SDS 08:58
PROVIDERS: ATTEND Surgery
DX: D12.3 Benign neoplasm of transverse colon (principal); K58.9 Irritable bowel syndrome, unspecified; K20.90 Esophagitis, unspecified without bleeding; F17.210 Nicotine dependence, cigarettes, uncomplicated; Z90.49 Acquired absence of other specified parts of digestive tract; Z79.899 Other long term (current) drug therapy; Z98.890 Other specified postprocedural states
CPT/HCPCS: 43239; 45380; 81025; J2405; J2704; J3010; J7120; 00813; 88305; 88342

== ENCOUNTER 2024-01-26 11:24 | Emergency (ER) | payer MEDICAID ==
[2024-01-26 11:58] VITALS: BP 116/71; PULSE 84
[2024-01-26] MEDS: traMADol 50 MG Tab PO STA (14:17)
== END 2024-01-26 14:31 | disposition home or self-care (01) ==
LOC: MW.ED 11:24
DX: M79.672 Pain in left foot (principal); E03.9 Hypothyroidism, unspecified; Z79.899 Other long term (current) drug therapy
CPT/HCPCS: 73610; 73630; 99283; A9270

== ENCOUNTER 2024-05-25 11:18 | Emergency (ER) | payer MEDICAID ==
[2024-05-25 11:45] LABS: BASOPHILS ABSOLUTE AUTO 0.06 K/uL (0.00-0.20); BASOPHILS PERCENT AUTO 0.6 % (0.0-1.0); EOSINOPHILS ABSOLUTE AUTO 0.15 K/uL (0.00-0.45); EOSINOPHILS PERCENT AUTO 1.4 % (0.0-6.0); HEMATOCRIT 39.5 % (37.0-47.0); HEMOGLOBIN 13.1 g/dL (12.0-16.0); IMMATURE GRAN ABSOLUTE AUTO 0.03 K/uL (0.00-0.05); IMMATURE GRAN PERCENT AUTO 0.3 % (0.0-0.4); LYMPHOCYTES ABSOLUTE AUTO 1.87 K/uL (1.00-4.80); LYMPHOCYTES PERCENT AUTO 17.3 % (24.0-44.0); MEAN CORPUSCULAR HEMOGLOBIN 28.2 pg (28.0-32.0); MEAN CORPUSCULAR HGB CONC 33.2 g/dL (32.0-36.0); MEAN CORPUSCULAR VOLUME 84.9 fL (83.0-99.0); MEAN PLATELET VOLUME 9.7 fL (9.4-12.3); MONOCYTES ABSOLUTE AUTO 0.59 K/uL (0.00-0.80); MONOCYTES PERCENT AUTO 5.5 % (0.0-8.0); NEUTROPHILS PERCENT AUTO 74.9 % (41.0-71.0); PLATELET COUNT,PLT 244 K/uL (150-400); RED BLOOD CELL COUNT 4.65 M/uL (4.10-5.30)
[2024-05-25 12:15] LABS: A/G RATIO 1.1 (0.9-1.6); ALANINE AMINOTRANSFERASE,ALT 21 IU/L (14-63); ALBUMIN 3.9 g/dL (3.4-5.0); ALKALINE PHOSPHATASE 137 U/L (46-116); ASPARTATE AMNIOTRANSFERASE,AST 16 IU/L (15-37); BILIRUBIN TOTAL 0.2 mg/dL (0.2-1.0); BLOOD UREA NITROGEN,BUN 7 mg/dL (7.0-18.0); CALCIUM 9.5 mg/dL (8.5-10.1); CARBON DIOXIDE,CO2 25.2 mmol/L (21.0-32.0); CHLORIDE,CL 103 mmol/L (98-107); CREATININE 1.1 mg/dL (0.6-1.0); EST CRCL DRUG DOSING (CG) 66.19 mL/min; GLUCOSE RANDOM 128 mg/dL (74-106); PROTEIN TOTAL,TP 7.5 g/dL (6.4-8.2); SODIUM,NA 138 mmol/L (136-145)
[2024-05-25 12:17] LABS: ESTIMATED GFR 67 mL/min (>60)
[2024-05-27 13:21] VITALS: BP 121/73; PULSE 82
== END 2024-05-25 13:32 | disposition home or self-care (01) ==
LOC: MW.ED 11:18
DX: R55 Syncope and collapse (principal); E03.9 Hypothyroidism, unspecified; Z75.8 Other problems related to medical facilities and other health care; Z79.890 Hormone replacement therapy; Z79.899 Other long term (current) drug therapy; Z87.891 Personal history of nicotine dependence
CPT/HCPCS: 36415; 70450; 70450-26; 80053; 83735; 84484; 84703; 85025; 93005; 93010; 99284; 99285

== ENCOUNTER 2024-10-29 17:00 | Emergency (ER) | payer MEDICAID ==
[2024-10-29 17:22] VITALS: BP 116/74; PULSE 81
== END 2024-10-29 17:59 | disposition home or self-care (01) ==
LOC: MW.ED 17:00
DX: H66.91 Otitis media, unspecified, right ear (principal); E03.9 Hypothyroidism, unspecified; Z79.890 Hormone replacement therapy; Z79.899 Other long term (current) drug therapy
CPT/HCPCS: 99283

== ENCOUNTER 2025-02-19 22:04 | Emergency (ER) | payer MEDICAID, OTHER ==
[2025-02-19 22:13] VITALS: BP 115/72; PULSE 84
== END 2025-02-19 22:54 | disposition home or self-care (01) ==
LOC: MW.ED 22:04
DX: S93.402A Sprain of unspecified ligament of left ankle, initial encounter (principal); S80.211A Abrasion, right knee, initial encounter; E03.9 Hypothyroidism, unspecified; Z79.890 Hormone replacement therapy; Z79.899 Other long term (current) drug therapy; W10.8XXA Fall (on) (from) other stairs and steps, initial encounter
CPT/HCPCS: 73560; 73600; 99283; A9270